=== PATIENT | female | born 1940 | race Caucasian/White ===

== ENCOUNTER 2021-04-19 08:14 | Emergency (ER) | payer MEDICARE, BC ==
[2021-04-19 08:33] VITALS: BP 187/75
[2021-04-19 09:06] LABS: BILIRUBIN,URINE NEGATIVE (NEGATIVE); GLUCOSE, URINE (UA) 100 mg/dL (NEGATIVE); KETONES,URINE (UA) NEGATIVE (NEGATIVE); LEUKOCYTE ESTERASE, URINE MODERATE (NEGATIVE); NITRITE,URINE NEGATIVE (NEGATIVE); OCCULT BLOOD,URINE TRACE-INTA (NEGATIVE); PROTEIN,URINE TRACE mg/dL (NEGATIVE); UROBILINOGEN,URINE 0.2 (NORMAL) E.U./dL (NORMAL)
[2021-04-19 09:07] LABS: CLARITY,URINE SL. CLOUDY (CLEAR)
[2021-04-19 09:23] LABS: BACTERIA,URINE Few /HPF (None Seen); RBC,URINE 0-5 /HPF (0-5); SQUAMOUS EPITHELIAL CELL,UR RARE Squamous (<= Few); WBC CLUMPS,URINE PRESENT; WBC,URINE >25 /HPF (0-5)
--- NOTE | 2021-04-19 09:41 | ED Physician Documentation ---
History of Present Illness - Stated complaint Stated Complaint: FEMALE - Chief complaint Chief Complaint: UTI - History obtained from History obtained from: Patient - Additonal information Additional information: 80-year-old woman with past medical history of chronic UTIs presents with foul- smelling urine and itching sensation when urinating over the past week, progressively worsening, refractory to her home remedies. Denies fever, back pain, nausea. Review of Systems Constitutional: denies: Fever GI: denies: Abdominal Pain, Nausea : reports: Dysuria, Frequency Musculoskeletal: denies: Back pain PD PAST MEDICAL HISTORY - Past Medical History Cardiovascular: Hypertension - Past Surgical History General: Cholecystectomy - Present Medications Home Medications: Ambulatory Orders Medication Instructions Recorded Confirmed Alendronate [Fosamax] 1 tab PO DAILY 04/19/21 04/19/21 Aspirin [[place] Aspirin] 1 tab PO DAILY 04/19/21 04/19/21 Cholecalciferol [Vitamin D3] 1 tab PO DAILY 04/19/21 04/19/21 Furosemide [Lasix] 1 tab PO PRN PRN 04/19/21 04/19/21 Levothyroxine [Synthroid] 1 tab PO DAILY 04/19/21 04/19/21 Liothyronine [Cytomel] 1 tab PO DAILY 04/19/21 04/19/21 Losartan Potassium [Cozaar] 1 tab PO DAILY 04/19/21 04/19/21 Nitrofurantoin [Macrobid] 1 tab PO DAILY 04/19/21 04/19/21 Nitrofurantoin [Macrobid] 100 mg PO BID #10 tab 04/19/21 SITagliptin [Januvia] 1 tab PO DAILY 04/19/21 04/19/21 hydroCHLOROthiazide 25 mg PO DAILY 04/19/21 04/19/21 [Hydrochlorothiazide] - Allergies Allergies/Adverse Reactions: Allergies Allergy/AdvReac Type Severity Reaction Status Date / Time ciprofloxacin Allergy Nausea Verified 04/19/21 08:42 clindamycin Allergy Unknown Verified 04/19/21 08:42 ibuprofen Allergy Unknown Verified 04/19/21 08:42 acetaminophen [From Vicodin] AdvReac Unknown Verified 04/19/21 08:42 amoxicillin [From Augmentin] AdvReac Unknown Verified 04/19/21 08:42 cephalexin AdvReac Hives Verified 04/19/21 08:42 clavulanic acid AdvReac Unknown Verified 04/19/21 08:42 [From Augmentin] codeine AdvReac Anaphylaxis Verified 04/19/21 08:42 fluconazole AdvReac Unknown Verified 04/19/21 08:42 hydrocodone [From Vicodin] AdvReac Unknown Verified 04/19/21 08:42 levofloxacin [From Levaquin] AdvReac Hives Verified 04/19/21 08:42 Sulfa (Sulfonamide AdvReac Anaphylaxis Verified 04/19/21 08:42 Antibiotics) tetracycline AdvReac Unknown Verified 04/19/21 08:42 trazodone AdvReac Unknown Verified 04/19/21 08:42 - Social History Does the pt smoke?: No Smoking Status: Never smoker Does the pt drink ETOH?: No Substance Use and Type: Marijuana, CBD oil / Products PD ED PE NORMAL - Vitals Vital signs reviewed: Yes - General General: Alert and oriented X 3, No acute distress, Well developed/nourished - HEENT HEENT: Atraumatic, PERRL, EOMI - Neck Neck: Supple, no meningeal sign - Abdomen Abdomen: Non tender, Non distended - Back Back: No CVA TTP - Derm Derm: Normal color - Extremities Extremities: No deformity - Neuro Neuro: Alert and oriented X 3 Results - Vitals Vitals: Vital Signs - 24 hr 04/19/21 08:24 Temperature 98.0 C H Heart Rate 57 L Respiratory 16 Rate Blood Pressure 187/75 H O2 Saturation 100 Oxygen O2 Source Room air - Labs Labs: Laboratory Tests 04/19/21 08:28 Urine Color YELLOW Urine Clarity SL. CLOUDY Urine pH 8.0 H Ur Specific [place] 1.015 Urine Protein TRACE Urine Glucose (UA) 100 H Urine Ketones NEGATIVE Urine Occult Blood TRACE-INTA Urine Nitrite NEGATIVE Urine Bilirubin NEGATIVE Urine Urobilinogen 0.2 (NORMAL) Ur Leukocyte Esterase MODERATE H Urine RBC 0-5 Urine WBC >25 H Urine WBC Clumps PRESENT Ur Squamous Epith Cells RARE Squamous Urine Bacteria Few Urine Culture Comments INDICATED PD MEDICAL DECISION MAKING - ED course ED course: 80-year-old woman presents with urinary tract infection. Prescription provided. Return precautions given. F/u PMD Departure - Departure Disposition: 01 Home, Self Care Clinical Impression: UTI (urinary tract infection) Condition: Good Instructions: ED UTI Cystitis Female Prescriptions: Nitrofurantoin [Macrobid] 100 mg PO BID #10 tab Comments: You were seen for a urinary tract infection. Take your antibiotics as prescribed. Return to the emergency department you have any new or worsening symptoms or other concerns. Follow-up with your primary doctor
== END 2021-04-19 10:08 | disposition home or self-care (01) ==
LOC: ED 08:14
DX: N39.0 Urinary tract infection, site not specified (principal); Z88.1 Allergy status to other antibiotic agents; Z88.2 Allergy status to sulfonamides; I10 Essential (primary) hypertension; Z79.82 Long term (current) use of aspirin
CPT/HCPCS: 81001; 87077; 87086; 87181; 99283

== ENCOUNTER 2023-04-08 13:41 | Emergency (ER) | payer MEDICARE, BC ==
--- NOTE | 2023-04-08 14:14 | ED Physician Documentation ---
History of Present Illness - Stated complaint Stated Complaint: DIZZY/VOMITING - Chief complaint Chief Complaint: Neuro - Additonal information Additional information: 82-year-old female presenting to the emergency department with dizziness, nausea, vomiting. Symptoms ongoing x5 days. Reports dizziness is a sensation of being unsteady on her feet. She reports a "gurgling" sensation in her ears.Denies hearing loss or tinnitus. Denies vertigo. Nausea vomiting with decreased p.o. intake. No chest or abdominal pain. Was seen by primary care but states she was not prescribed medications to help with her symptoms and no findings were noted. Review of Systems Constitutional: denies: Fever Eyes: denies: Loss of vision Ears: denies: Loss of hearing Nose: denies: Rhinorrhea / runny nose Throat: denies: Dental pain / toothache Cardiac: denies: Chest pain / pressure Respiratory: denies: Dyspnea GI: reports: Nausea, Vomiting : denies: Dysuria Skin: denies: Rash, Abrasion (s) Musculoskeletal: denies: Neck pain PD PAST MEDICAL HISTORY - Past Medical History Cardiovascular: Hypertension - Past Surgical History General: Cholecystectomy - Present Medications Home Medications: Ambulatory Orders Medication Instructions Recorded Confirmed Alendronate [Fosamax] 1 tab PO DAILY 04/19/21 04/19/21 Aspirin [[place] Aspirin] 1 tab PO DAILY 04/19/21 04/19/21 Cholecalciferol [Vitamin D3] 1 tab PO DAILY 04/19/21 04/19/21 Furosemide [Lasix] 1 tab PO PRN PRN 04/19/21 04/19/21 Levothyroxine [Synthroid] 1 tab PO DAILY 04/19/21 04/19/21 Liothyronine [Cytomel] 1 tab PO DAILY 04/19/21 04/19/21 Losartan Potassium [Cozaar] 1 tab PO DAILY 04/19/21 04/19/21 Nitrofurantoin [Macrobid] 1 tab PO DAILY 04/19/21 04/19/21 Nitrofurantoin [Macrobid] 100 mg PO BID #10 tab 04/19/21 SITagliptin [Januvia] 1 tab PO DAILY 04/19/21 04/19/21 hydroCHLOROthiazide 25 mg PO DAILY 04/19/21 04/19/21 [Hydrochlorothiazide] - Allergies Allergies/Adverse Reactions: Allergies Allergy/AdvReac Type Severity Reaction Status Date / Time ciprofloxacin Allergy Nausea Verified 04/19/21 08:42 clindamycin Allergy Unknown Verified 04/19/21 08:42 ibuprofen Allergy Unknown Verified 04/08/23 14:11 acetaminophen [From Vicodin] AdvReac Unknown Verified 04/08/23 14:11 amoxicillin [From Augmentin] AdvReac Unknown Verified 04/08/23 14:11 cephalexin AdvReac Hives Verified 04/08/23 14:11 clavulanic acid AdvReac Unknown Verified 04/08/23 14:11 [From Augmentin] codeine AdvReac Anaphylaxis Verified 04/08/23 14:11 fluconazole AdvReac Unknown Verified 04/08/23 14:11 hydrocodone [From Vicodin] AdvReac Unknown Verified 04/08/23 14:11 levofloxacin [From Levaquin] AdvReac Hives Verified 04/08/23 14:11 Sulfa (Sulfonamide AdvReac Anaphylaxis Verified 04/08/23 14:11 Antibiotics) tetracycline AdvReac Unknown Verified 04/19/21 08:42 trazodone AdvReac Unknown Verified 04/19/21 08:42 - Social History Does the pt smoke?: No Smoking Status: Never smoker Does the pt drink ETOH?: No PD ED PE NORMAL - General General: Alert and oriented X 3, No acute distress, Well developed/nourished, Other - HEENT HEENT: Atraumatic, PERRL, EOMI, Ears normal, Moist mucous membranes - Neck Neck: Supple, no meningeal sign, No bony TTP, No adenopathy, Thyroid normal - Cardiac Cardiac: RRR, No murmur - Respiratory Respiratory: No respiratory distress - Abdomen Abdomen: Normal bowel sounds - Female Female : Deferred - Rectal Rectal: Deferred - Back Back: No CVA TTP - Derm Derm: Normal color - Extremities Extremities: No deformity - Neuro Neuro: Alert and oriented X 3, sitecore developer 2-12 intact, No motor deficit, No sensory deficit, Normal speech Results - Vitals Vitals: Vital Signs - 24 hr 04/08/23 14:05 Temperature 36.7 C Heart Rate 75 Respiratory 19 Rate O2 Saturation 98 Oxygen O2 Source Room air PD Medical Decision Making - ED course ED course: Patient 82-year-old female who presented to the emergency department with report of 5 days of balance issues, nausea, vomiting, decreased appetite as well as "gurgling noises" behind her left ear. Afebrile, he medically stable and arr ival to the emergency department. No focal or lateralizing neurologic deficits. HEENT exam demonstrated what appeared to be some mild scarring but no fluid behind the tympanic membranes bilaterally, no tympanic membrane perforation, no cola stoma was appreciated on exam. Plan was initially made with patient for thorough evaluation here in the emergency department including EKG, blood work, urine analysis and CT scan however patient eloped from the emergency department almost immediately after my interview. She was noted to be able to ambulate easily and demonstrated decisional capacity. There is no indication at this time for a wellness check. Departure - Departure Disposition: 01 Home, Self Care Clinical Impression: Dizziness, Eloped from emergency department Nausea and vomiting Qualifiers: Vomiting type: unspecified Qualified Code(s): R11.2 - Nausea with vomiting, unspecified Comments: Thank you for allowing us the opportunity to care for you today would be general. You are deciding to leave the emergency department before the completion of her evaluation. Given that I cannot tell you for certain whether or not there is a dangerous or potentially life-threatening cause for your symptoms. I do recommend that you follow-up carefully with your primary care doctor. Please be aware that you are Always welcome to return to the emergency department and I strongly encourage you to do so for any new or worsening symptoms Discharge Date/Time: 04/08/23 14:40
[2023-04-08] MEDS ORDERED: SODIUM CHLORIDE 0.9% 500 ML IV STA (14:27)
--- OUTSIDE RECORDS SUMMARY | 2023-04-08 14:44 | EXTERNAL MEDICAL SUMMARY RPT | Continuity of Care Document ---
Author Name Unknown Address [address] [place] [address] Phone Organization [facility] Address [address] [place] [address] Phone Care Team Providers Care Test Lead Application Testing Name Role Phone Franklin Rizzo Unavailable Unavailable Medications date description facility 2023-02-04 00:00 [facility] Problems date description facility 2023-02-04 00:00 Type 2 diabetes, controlled, wi th neuropathy [facility] 2023-02-24 09:49 Type 2 diabetes mellitus withou t complications [facility] 2023-02-24 09:49 Essential (primary) [facility] 2023-02-24 09:49 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 [facility] 2023-02-24 09:49 Proteinuria, unspecified [facility] 2023-03-17 13:35 Type 2 diabetes mellitus withou t complications [facility] 2023-03-17 13:35 Essential (primary) [facility] 2023-03-17 13:35 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 [facility] 2023-03-17 13:35 Proteinuria, unspecified [facility] 2023-04-01 08:36 Essential (primary) [facility] Results/Labs test date author facility value unit interpretation Result panel 1 (unknown) (no date) (unknown) [facility] (no value) (units unknown) (unknown) Result panel 2 (unknown) (no date) (unknown) [facility] (no value) (units unknown) (unknown) Result panel 3 (unknown) (no date) (unknown) (unknown) 7.4 % 4548-4 (unknown) (no date) (unknown) (unknown) 7.4 % (unknown ) Result panel 4 (unknown) (no date) (unknown) (unknown) 5.3 mg/dl (unknown ) (unknown) (no date) (unknown) (unknown) 53.7 mg/dl (unknown ) (unknown) (no date) (unknown) (unknown) 98.6 ug/mg cr (unknow n) (unknown) (no date) (unknown) (unknown) 98.6 ug/mg cr (unknow n) Result panel 5 (unknown) (no date) (unknown) (unknown) 7.4 % (unknown ) (unknown) (no date) (unknown) (unknown) 7.4 % (unknown ) Result panel 6 (unknown) (no date) (unknown) (unknown) (no value) (units unknown) (unknown) (unknown) (no date) (unknown) (unknown) 02/04/23 (units unknown) (unknown) (unknown) (no date) (unknown) (unknown) 10:07) (units unknown) (unknown) (unknown) (no date) (unknown) (unknown) Age/Sex: 82 / F Date of Service: (units unknown) (unknown) (unknown) (no date) (unknown) (unknown) Allergies (units unknown) (unknown) (unknown) (no date) (unknown) (unknown) Allergy to mul tiple antibiotics (units unknown) (unknown) (unknown) (no date) (unknown) (unknown) [place] [address] (units unknown) (unknown) (unknown) (no date) (unknown) (unknown) Anesthesia (units unknown) (unknown) (unknown) (no date) (unknown) (unknown) Attending Dr: Franklin MOSLEY (units unknown) (unknown) (unknown) (no date) (unknown) (unknown) CODEINE Allerg y (Severe, Uncoded 12/30/22 10:07) (units unknown) (unknown) (unknown) (no date) (unknown) (unknown) Carpal tunnel syndrome (-1976) (units unknown) (unknown) (unknown) (no date) (unknown) (unknown) Chicken pox (-1949) (units unknown) (unknown) (unknown) (no date) (unknown) (unknown) Coronary arter y disease (units unknown) (unknown) (unknown) (no date) (unknown) (unknown) : 0 Acct:[id number] (units unknown) (unknown) (unknown) (no date) (unknown) (unknown) Dept at . (units unknown) (unknown) (unknown) (no date) (unknown) (unknown) Diabetic neuropathy (units unknown) (unknown) (unknown) (no date) (unknown) (unknown) Documented By: Franklin Rizzo 02/04/23 1150 (units unknown) (unknown) (unknown) (no date) (unknown) (unknown) Draft (units unknown) (unknown) (unknown) (no date) (unknown) (unknown) Dupuytren's contracture (units unknown) (unknown) (unknown) (no date) (unknown) (unknown) Dyslipidemia (units unknown) (unknown) (unknown) (no date) (unknown) (unknown) Essential hypertension (units unknown) (unknown) (unknown) (no date) (unknown) (unknown) FLUCONAZOLE Al lergy (Severe, Uncoded 12/30/22 10:07) (units unknown) (unknown) (unknown) (no date) (unknown) (unknown) Family History (units unknown) (unknown) (unknown) (no date) (unknown) (unknown) Family Practic e Office Visit (units unknown) (unknown) (unknown) (no date) (unknown) (unknown) Father Murder (units unknown) (unknown) (unknown) (no date) (unknown) (unknown) [facility] (units unknown) (unknown) (unknown) (no date) (unknown) (unknown) Foot pain (units unknown) (unknown) (unknown) (no date) (unknown) (unknown) Fractures (units unknown) (unknown) (unknown) (no date) (unknown) (unknown) From CIPRO All ergy (Severe, Uncoded 12/30/22 10:07) (units unknown) (unknown) (unknown) (no date) (unknown) (unknown) HYDROCODONE Al lergy (Severe, Uncoded 12/30/22 10:07) (units unknown) (unknown) (unknown) (no date) (unknown) (unknown) History of abdominoplasty (units unknown) (unknown) (unknown) (no date) (unknown) (unknown) History of casandra k surgery (-2018) (units unknown) (unknown) (unknown) (no date) (unknown) (unknown) History of car pal tunnel release (units unknown) (unknown) (unknown) (no date) (unknown) (unknown) History of tob acco use (units unknown) (unknown) (unknown) (no date) (unknown) (unknown) Hives (units unknown) (unknown) (unknown) (no date) (unknown) (unknown) Hypothyroidism (-1998) (units unknown) (unknown) (unknown) (no date) (unknown) (unknown) Intake perform ed by: Quiana Camarillo (units unknown) (unknown) (unknown) (no date) (unknown) (unknown) Intake (units unknown) (unknown) (unknown) (no date) (unknown) (unknown) Intake- [facility] [facility] Staff (units unknown) (unknown) (unknown) (no date) (unknown) (unknown) Last Menstural Cycle + Details (units unknown) (unknown) (unknown) (no date) (unknown) (unknown) Loc: [facility] (units unknown) (unknown) (unknown) (no date) (unknown) (unknown) Measles (-1955) (uni ts unknown) (unknown) (unknown) (no date) (unknown) (unknown) Medical Histor y (units unknown) (unknown) (unknown) (no date) (unknown) (unknown) Mother d Brain tumor (units unknown) (unknown) (unknown) (no date) (unknown) (unknown) NITROFURANTOIN Allergy (Severe, Uncoded 12/30/22 10:07) (units unknown) (unknown) (unknown) (no date) (unknown) (unknown) Osteoporosis (units unknown) (unknown) (unknown) (no date) (unknown) (unknown) Other Menstrua l Period: Postmenopausal (units unknown) (unknown) (unknown) (no date) (unknown) (unknown) PFSH (units unknown) (unknown) (unknown) (no date) (unknown) (unknown) POLLEN Allergy (Unknown, Uncoded 12/30/22 10:07) (units unknown) (unknown) (unknown) (no date) (unknown) (unknown) Parkinson's disease (units unknown) (unknown) (unknown) (no date) (unknown) (unknown) Patient: Quiana Santiago (units unknown) (unknown) (unknown) (no date) (unknown) (unknown) Polio (-1943) (units unknown) (unknown) (unknown) (no date) (unknown) (unknown) R#: [id number] (unit s unknown) (unknown) (unknown) (no date) (unknown) (unknown) RASH (units unknown) (unknown) (unknown) (no date) (unknown) (unknown) Reason For Visit (un its unknown) (unknown) (unknown) (no date) (unknown) (unknown) Rectal bleeding (uni ts unknown) (unknown) (unknown) (no date) (unknown) (unknown) Recurrent UTI (units unknown) (unknown) (unknown) (no date) (unknown) (unknown) Reflux, vesicoureteral (units unknown) (unknown) (unknown) (no date) (unknown) (unknown) STOMACH CRAMPS , 'I CHOKE UP' (units unknown) (unknown) (unknown) (no date) (unknown) (unknown) STOMACH CRAMPS , 'I CRAMP UP' (units unknown) (unknown) (unknown) (no date) (unknown) (unknown) STOMACH CRAMPS, RASH (units unknown) (unknown) (unknown) (no date) (unknown) (unknown) SULFA Allergy (Severe, Uncoded 12/30/22 10:07) (units unknown) (unknown) (unknown) (no date) (unknown) (unknown) Signed By: (units unknown) (unknown) (unknown) (no date) (unknown) (unknown) Sister d Substance abuse (units unknown) (unknown) (unknown) (no date) (unknown) (unknown) Smoking Status : Former smoker (units unknown) (unknown) (unknown) (no date) (unknown) (unknown) Surgical Histo ry (units unknown) (unknown) (unknown) (no date) (unknown) (unknown) THROAT SWELLIN G, HIVES, 'I CAN'T BREATHE' (units unknown) (unknown) (unknown) (no date) (unknown) (unknown) This note may have been all or partially generated using voice recognition (units unknown) (unknown) (unknown) (no date) (unknown) (unknown) Tobacco + Subs tance Use (units unknown) (unknown) (unknown) (no date) (unknown) (unknown) Tobacco Status (unit s unknown) (unknown) (unknown) (no date) (unknown) (unknown) Type 2 diabete s mellitus without complication (-1969) (units unknown) (unknown) (unknown) (no date) (unknown) (unknown) Unknown (units unknown) (unknown) (unknown) (no date) (unknown) (unknown) Urge incontinence (u nits unknown) (unknown) (unknown) (no date) (unknown) (unknown) Vaginal itching (uni ts unknown) (unknown) (unknown) (no date) (unknown) (unknown) Visit Reasons: f/u Diabetic check review medication (units unknown) (unknown) (unknown) (no date) (unknown) (unknown) amoxicillin [F rom Augmentin] Adverse Reaction (Unknown, Verified 12/30/22 10:07) (units unknown) (unknown) (unknown) (no date) (unknown) (unknown) cephalexin Adv erse Reaction (Unknown, Verified 12/30/22 10:07) (units unknown) (unknown) (unknown) (no date) (unknown) (unknown) clavulanic aci d [From Augmentin] Adverse Reaction (Unknown, Verified 12/30/22 (units unknown) (unknown) (unknown) (no date) (unknown) (unknown) clindamycin Ad verse Reaction (Unknown, Verified 12/30/22 10:07) (units unknown) (unknown) (unknown) (no date) (unknown) (unknown) have occurred. If there are any questions, please contact the Medical Records (units unknown) (unknown) (unknown) (no date) (unknown) (unknown) ibuprofen Adve rse Reaction (Intermediate, Verified 12/30/22 10:07) (units unknown) (unknown) (unknown) (no date) (unknown) (unknown) levofloxacin [ From Levaquin] Allergy (Intermediate, Verified 12/30/22 10:07) (units unknown) (unknown) (unknown) (no date) (unknown) (unknown) may occur. Occasional wrong-word or 'sound-alike' substitutions may have (units unknown) (unknown) (unknown) (no date) (unknown) (unknown) occurred due t o the inherent limitations of voice recognition software. Please (units unknown) (unknown) (unknown) (no date) (unknown) (unknown) read the note carefully and recognize, using context, where these substitutions (units unknown) (unknown) (unknown) (no date) (unknown) (unknown) software. Alth ough every effort is made to edit content, concrete tester errors (units unknown) (unknown) (unknown) (no date) (unknown) (unknown) tetracycline A dverse Reaction (Unknown, Verified 12/30/22 10:07) (units unknown) (unknown) Result panel 7 (unknown) (no date) (unknown) (unknown) (no value) (units unknown) (unknown) (unknown) (no date) (unknown) (unknown) 02/04/23 (units unknown) (unknown) (unknown) (no date) (unknown) (unknown) 02/04/23] (units unknown) (unknown) (unknown) (no date) (unknown) (unknown) 08/09/21 [Hist ory Confirmed 02/04/23] (units unknown) (unknown) (unknown) (no date) (unknown) (unknown) 11:52) (units unknown) (unknown) (unknown) (no date) (unknown) (unknown) 12:00 (units unknown) (unknown) (unknown) (no date) (unknown) (unknown) 82 Y/O Female presents today for a Diabetes follow up (units unknown) (unknown) (unknown) (no date) (unknown) (unknown) Age/Sex: 82 / F Date of Service: (units unknown) (unknown) (unknown) (no date) (unknown) (unknown) Allergies (units unknown) (unknown) (unknown) (no date) (unknown) (unknown) Allergy to mul tiple antibiotics (units unknown) (unknown) (unknown) (no date) (unknown) (unknown) [place] [address] (units unknown) (unknown) (unknown) (no date) (unknown) (unknown) Anesthesia (units unknown) (unknown) (unknown) (no date) (unknown) (unknown) Attending Dr: Franklin MOSLEY (units unknown) (unknown) (unknown) (no date) (unknown) (unknown) BP 140/70 (units unknown) (unknown) (unknown) (no date) (unknown) (unknown) Blood Pressure Location Lt brachial (units unknown) (unknown) (unknown) (no date) (unknown) (unknown) CODEINE Allerg y (Severe, Uncoded 02/04/23 11:52) (units unknown) (unknown) (unknown) (no date) (unknown) (unknown) Carpal tunnel syndrome (-1976) (units unknown) (unknown) (unknown) (no date) (unknown) (unknown) Chicken pox (-1949) (units unknown) (unknown) (unknown) (no date) (unknown) (unknown) Confirmed 02/04/23] (units unknown) (unknown) (unknown) (no date) (unknown) (unknown) Coronary arter y disease (units unknown) (unknown) (unknown) (no date) (unknown) (unknown) DAILY #90 tabs 01/20/22 [Rx Confirmed 02/04/23] (units unknown) (unknown) (unknown) (no date) (unknown) (unknown) : 0 Acct:[id number] (units unknown) (unknown) (unknown) (no date) (unknown) (unknown) Dept at . (units unknown) (unknown) (unknown) (no date) (unknown) (unknown) Diabetic neuropathy (units unknown) (unknown) (unknown) (no date) (unknown) (unknown) Documented By: Franklin Rizzo 02/04/23 1150 (units unknown) (unknown) (unknown) (no date) (unknown) (unknown) Draft (units unknown) (unknown) (unknown) (no date) (unknown) (unknown) Dupuytren's contracture (units unknown) (unknown) (unknown) (no date) (unknown) (unknown) Dyslipidemia (units unknown) (unknown) (unknown) (no date) (unknown) (unknown) Essential hypertension (units unknown) (unknown) (unknown) (no date) (unknown) (unknown) FLUCONAZOLE Al lergy (Severe, Uncoded 02/04/23 11:52) (units unknown) (unknown) (unknown) (no date) (unknown) (unknown) Family History (units unknown) (unknown) (unknown) (no date) (unknown) (unknown) Family Practic e Office Visit (units unknown) (unknown) (unknown) (no date) (unknown) (unknown) Father Murder (units unknown) (unknown) (unknown) (no date) (unknown) (unknown) [facility] (units unknown) (unknown) (unknown) (no date) (unknown) (unknown) Foot pain (units unknown) (unknown) (unknown) (no date) (unknown) (unknown) Fractures (units unknown) (unknown) (unknown) (no date) (unknown) (unknown) From CIPRO All ergy (Severe, Uncoded 02/04/23 11:52) (units unknown) (unknown) (unknown) (no date) (unknown) (unknown) HYDROCODONE Al lergy (Severe, Uncoded 02/04/23 11:52) (units unknown) (unknown) (unknown) (no date) (unknown) (unknown) Height 4 ft 11 in (u nits unknown) (unknown) (unknown) (no date) (unknown) (unknown) History of abdominoplasty (units unknown) (unknown) (unknown) (no date) (unknown) (unknown) History of casandra k surgery (-2018) (units unknown) (unknown) (unknown) (no date) (unknown) (unknown) History of car pal tunnel release (units unknown) (unknown) (unknown) (no date) (unknown) (unknown) History of tob acco use (units unknown) (unknown) (unknown) (no date) (unknown) (unknown) Hives (units unknown) (unknown) (unknown) (no date) (unknown) (unknown) Hypothyroidism (-1998) (units unknown) (unknown) (unknown) (no date) (unknown) (unknown) Intake Note: (units unknown) (unknown) (unknown) (no date) (unknown) (unknown) Intake perform ed by: Quiana Camarillo (units unknown) (unknown) (unknown) (no date) (unknown) (unknown) Intake (units unknown) (unknown) (unknown) (no date) (unknown) (unknown) Intake- [place] [facility] Staff (units unknown) (unknown) (unknown) (no date) (unknown) (unknown) Last Menstural Cycle + Details (units unknown) (unknown) (unknown) (no date) (unknown) (unknown) Loc: [facility] (units unknown) (unknown) (unknown) (no date) (unknown) (unknown) Measles (-1955) (uni ts unknown) (unknown) (unknown) (no date) (unknown) (unknown) Medical Histor y (units unknown) (unknown) (unknown) (no date) (unknown) (unknown) Medications (units unknown) (unknown) (unknown) (no date) (unknown) (unknown) Mother d Brain tumor (units unknown) (unknown) (unknown) (no date) (unknown) (unknown) NITROFURANTOIN Allergy (Severe, Uncoded 02/04/23 11:52) (units unknown) (unknown) (unknown) (no date) (unknown) (unknown) Osteoporosis (units unknown) (unknown) (unknown) (no date) (unknown) (unknown) Other Menstrua l Period: Postmenopausal (units unknown) (unknown) (unknown) (no date) (unknown) (unknown) Oxygen Deliver y Method room air (units unknown) (unknown) (unknown) (no date) (unknown) (unknown) PFSH (units unknown) (unknown) (unknown) (no date) (unknown) (unknown) POLLEN Allergy (Unknown, Uncoded 02/04/23 11:52) (units unknown) (unknown) (unknown) (no date) (unknown) (unknown) Parkinson's disease (units unknown) (unknown) (unknown) (no date) (unknown) (unknown) Patient: [place] Quiana Valadez (units unknown) (unknown) (unknown) (no date) (unknown) (unknown) Polio (-1943) (units unknown) (unknown) (unknown) (no date) (unknown) (unknown) Position Sitting (un its unknown) (unknown) (unknown) (no date) (unknown) (unknown) Pulse 56 L (units unknown) (unknown) (unknown) (no date) (unknown) (unknown) Pulse Oximetry (%) 97 (units unknown) (unknown) (unknown) (no date) (unknown) (unknown) Pulse Source Monitor (units unknown) (unknown) (unknown) (no date) (unknown) (unknown) R#: [id number] (unit s unknown) (unknown) (unknown) (no date) (unknown) (unknown) RASH (units unknown) (unknown) (unknown) (no date) (unknown) (unknown) Reason For Visit (un its unknown) (unknown) (unknown) (no date) (unknown) (unknown) Rectal bleeding (uni ts unknown) (unknown) (unknown) (no date) (unknown) (unknown) Recurrent UTI (units unknown) (unknown) (unknown) (no date) (unknown) (unknown) Reflux, vesicoureteral (units unknown) (unknown) (unknown) (no date) (unknown) (unknown) STOMACH CRAMPS , 'I CHOKE UP' (units unknown) (unknown) (unknown) (no date) (unknown) (unknown) STOMACH CRAMPS , 'I CRAMP UP' (units unknown) (unknown) (unknown) (no date) (unknown) (unknown) STOMACH CRAMPS, RASH (units unknown) (unknown) (unknown) (no date) (unknown) (unknown) SULFA Allergy (Severe, Uncoded 02/04/23 11:52) (units unknown) (unknown) (unknown) (no date) (unknown) (unknown) Signed By: (units unknown) (unknown) (unknown) (no date) (unknown) (unknown) Sister d Substance abuse (units unknown) (unknown) (unknown) (no date) (unknown) (unknown) Smoking Status : Former smoker (units unknown) (unknown) (unknown) (no date) (unknown) (unknown) Surgical Histo ry (units unknown) (unknown) (unknown) (no date) (unknown) (unknown) THROAT SWELLIN G, HIVES, 'I CAN'T BREATHE' (units unknown) (unknown) (unknown) (no date) (unknown) (unknown) This note may have been all or partially generated using voice recognition (units unknown) (unknown) (unknown) (no date) (unknown) (unknown) Tobacco + Subs tance Use (units unknown) (unknown) (unknown) (no date) (unknown) (unknown) Tobacco Status (unit s unknown) (unknown) (unknown) (no date) (unknown) (unknown) Type 2 diabete s mellitus without complication (-1970) (units unknown) (unknown) (unknown) (no date) (unknown) (unknown) Unknown (units unknown) (unknown) (unknown) (no date) (unknown) (unknown) Urge incontinence (u nits unknown) (unknown) (unknown) (no date) (unknown) (unknown) Vaginal itching (uni ts unknown) (unknown) (unknown) (no date) (unknown) (unknown) Visit Reasons: f/u Diabetic check review medication (units unknown) (unknown) (unknown) (no date) (unknown) (unknown) Vitals (units unknown) (unknown) (unknown) (no date) (unknown) (unknown) [Rx Confirmed 02/04/23] (units unknown) (unknown) (unknown) (no date) (unknown) (unknown) alendronate 70 mg tablet 70 mg PO QWEEK #12 tabs 07/22/22 [Rx Confirmed (units unknown) (unknown) (unknown) (no date) (unknown) (unknown) amoxicillin [F rom Augmentin] Adverse Reaction (Unknown, Verified 02/04/23 11:52) (units unknown) (unknown) (unknown) (no date) (unknown) (unknown) aspirin 81 mg tablet,delayed release (Adult Aspirin Regimen) 81 mg PO DAILY (units unknown) (unknown) (unknown) (no date) (unknown) (unknown) atorvastatin 4 0 mg tablet 40 mg PO BEDTIME #90 tabs 12/20/22 [Rx Confirmed (units unknown) (unknown) (unknown) (no date) (unknown) (unknown) cephalexin Adv erse Reaction (Unknown, Verified 02/04/23 11:52) (units unknown) (unknown) (unknown) (no date) (unknown) (unknown) clavulanic aci d [From Augmentin] Adverse Reaction (Unknown, Verified 02/04/23 (units unknown) (unknown) (unknown) (no date) (unknown) (unknown) clindamycin Ad verse Reaction (Unknown, Verified 02/04/23 11:52) (units unknown) (unknown) (unknown) (no date) (unknown) (unknown) clotrimazole 1 % topical cream 1 applic topical 02/04/23 [History Confirmed (units unknown) (unknown) (unknown) (no date) (unknown) (unknown) furosemide 20 mg tablet (Lasix) 20 mg PO BID PRN edema #180 tabs 12/20/22 [Rx (units unknown) (unknown) (unknown) (no date) (unknown) (unknown) have occurred. If there are any questions, please contact the Medical Records (units unknown) (unknown) (unknown) (no date) (unknown) (unknown) ibuprofen Adve rse Reaction (Intermediate, Verified 02/04/23 11:52) (units unknown) (unknown) (unknown) (no date) (unknown) (unknown) levofloxacin [ From Levaquin] Allergy (Intermediate, Verified 02/04/23 11:52) (units unknown) (unknown) (unknown) (no date) (unknown) (unknown) levothyroxine 137 mcg tablet 137 mcg PO DAILY #90 tabs 12/20/22 [Rx Confirmed (units unknown) (unknown) (unknown) (no date) (unknown) (unknown) liothyronine 5 mcg tablet (Cytomel) 10 mcg PO DAILY #180 tabs 12/20/22 [Rx (units unknown) (unknown) (unknown) (no date) (unknown) (unknown) losartan 100 m g tablet 100 mg PO DAILY #90 tabs 12/20/22 [Rx Confirmed 02/04/23] (units unknown) (unknown) (unknown) (no date) (unknown) (unknown) may occur. Occasional wrong-word or 'sound-alike' substitutions may have (units unknown) (unknown) (unknown) (no date) (unknown) (unknown) metformin 1,00 0 mg tablet 1,000 mg PO BID #180 tabs 09/01/22 [Rx Confirmed (units unknown) (unknown) (unknown) (no date) (unknown) (unknown) metoprolol suc cinate 50 mg tablet,extended release 24 hr (Toprol XL) 50 mg PO (units unknown) (unknown) (unknown) (no date) (unknown) (unknown) nifedipine 30 mg tablet,extended release 24 hr 30 mg PO DAILY #90 tabs 12/16/22 (units unknown) (unknown) (unknown) (no date) (unknown) (unknown) occurred due t o the inherent limitations of voice recognition software. Please (units unknown) (unknown) (unknown) (no date) (unknown) (unknown) read the note carefully and recognize, using context, where these substitutions (units unknown) (unknown) (unknown) (no date) (unknown) (unknown) sitagliptin phosphate 100 mg tablet 100 mg PO DAILY #90 tabs 12/20/22 [Rx (units unknown) (unknown) (unknown) (no date) (unknown) (unknown) software. Alth ough every effort is made to edit content, concrete tester errors (units unknown) (unknown) (unknown) (no date) (unknown) (unknown) tetracycline A dverse Reaction (Unknown, Verified 02/04/23 11:52) (units unknown) (unknown) Result panel 8 (unknown) (no date) (unknown) (unknown) (no value) (units unknown) (unknown) (unknown) (no date) (unknown) (unknown) 02/04/23 (units unknown) (unknown) (unknown) (no date) (unknown) (unknown) 02/04/23] (units unknown) (unknown) (unknown) (no date) (unknown) (unknown) 08/09/21 [Hist ory Confirmed 02/04/23] (units unknown) (unknown) (unknown) (no date) (unknown) (unknown) 11:52) (units unknown) (unknown) (unknown) (no date) (unknown) (unknown) 12:00 (units unknown) (unknown) (unknown) (no date) (unknown) (unknown) 82 Y/O Female presents today for a Diabetes follow up. Her last A1C was tested (units unknown) (unknown) (unknown) (no date) (unknown) (unknown) Age/Sex: 82 / F Date of Service: (units unknown) (unknown) (unknown) (no date) (unknown) (unknown) Allergies (units unknown) (unknown) (unknown) (no date) (unknown) (unknown) Allergy to mul tiple antibiotics (units unknown) (unknown) (unknown) (no date) (unknown) (unknown) [place] [id number] (units unknown) (unknown) (unknown) (no date) (unknown) (unknown) Anesthesia (units unknown) (unknown) (unknown) (no date) (unknown) (unknown) Attending Dr: Franklin MOSLEY (units unknown) (unknown) (unknown) (no date) (unknown) (unknown) BP 140/70 (units unknown) (unknown) (unknown) (no date) (unknown) (unknown) Blood Pressure Location Lt brachial (units unknown) (unknown) (unknown) (no date) (unknown) (unknown) CODEINE Allerg y (Severe, Uncoded 02/04/23 11:52) (units unknown) (unknown) (unknown) (no date) (unknown) (unknown) Carpal tunnel syndrome (-1976) (units unknown) (unknown) (unknown) (no date) (unknown) (unknown) Chicken pox (-1949) (units unknown) (unknown) (unknown) (no date) (unknown) (unknown) Confirmed 02/04/23] (units unknown) (unknown) (unknown) (no date) (unknown) (unknown) Coronary arter y disease (units unknown) (unknown) (unknown) (no date) (unknown) (unknown) DAILY #90 tabs 01/20/22 [Rx Confirmed 02/04/23] (units unknown) (unknown) (unknown) (no date) (unknown) (unknown) : 0 Acct:[id number] (units unknown) (unknown) (unknown) (no date) (unknown) (unknown) Dept at . (units unknown) (unknown) (unknown) (no date) (unknown) (unknown) Diabetic neuropathy (units unknown) (unknown) (unknown) (no date) (unknown) (unknown) Documented By: Franklin Rizzo 02/04/23 1150 (units unknown) (unknown) (unknown) (no date) (unknown) (unknown) Draft (units unknown) (unknown) (unknown) (no date) (unknown) (unknown) Dupuytren's contracture (units unknown) (unknown) (unknown) (no date) (unknown) (unknown) Dyslipidemia (units unknown) (unknown) (unknown) (no date) (unknown) (unknown) Essential hypertension (units unknown) (unknown) (unknown) (no date) (unknown) (unknown) FLUCONAZOLE Al jasbirgy (Severe, Uncoded 02/04/23 11:52) (units unknown) (unknown) (unknown) (no date) (unknown) (unknown) Family History (units unknown) (unknown) (unknown) (no date) (unknown) (unknown) Family Practic e Office Visit (units unknown) (unknown) (unknown) (no date) (unknown) (unknown) Father Murder (units unknown) (unknown) (unknown) (no date) (unknown) (unknown) [facility] (units unknown) (unknown) (unknown) (no date) (unknown) (unknown) Foot pain (units unknown) (unknown) (unknown) (no date) (unknown) (unknown) Fractures (units unknown) (unknown) (unknown) (no date) (unknown) (unknown) From [facility] All ergy (Severe, Uncoded 02/04/23 11:52) (units unknown) (unknown) (unknown) (no date) (unknown) (unknown) HYDROCODONE Al lergy (Severe, Uncoded 02/04/23 11:52) (units unknown) (unknown) (unknown) (no date) (unknown) (unknown) Height 4 ft 11 in (u nits unknown) (unknown) (unknown) (no date) (unknown) (unknown) History of abdominoplasty (units unknown) (unknown) (unknown) (no date) (unknown) (unknown) History of casandra k surgery (-2018) (units unknown) (unknown) (unknown) (no date) (unknown) (unknown) History of car pal tunnel release (units unknown) (unknown) (unknown) (no date) (unknown) (unknown) History of tob acco use (units unknown) (unknown) (unknown) (no date) (unknown) (unknown) Hives (units unknown) (unknown) (unknown) (no date) (unknown) (unknown) Hypothyroidism (-1998) (units unknown) (unknown) (unknown) (no date) (unknown) (unknown) Intake Note: (units unknown) (unknown) (unknown) (no date) (unknown) (unknown) Intake perform ed by: Quiana Camarillo (units unknown) (unknown) (unknown) (no date) (unknown) (unknown) Intake (units unknown) (unknown) (unknown) (no date) (unknown) (unknown) Intake- [place] al Staff (units unknown) (unknown) (unknown) (no date) (unknown) (unknown) Last Menstural Cycle + Details (units unknown) (unknown) (unknown) (no date) (unknown) (unknown) Loc: [facility] (units unknown) (unknown) (unknown) (no date) (unknown) (unknown) Measles (-1955) (uni ts unknown) (unknown) (unknown) (no date) (unknown) (unknown) Medical Histor y (units unknown) (unknown) (unknown) (no date) (unknown) (unknown) Medications (units unknown) (unknown) (unknown) (no date) (unknown) (unknown) Mother d Brain tumor (units unknown) (unknown) (unknown) (no date) (unknown) (unknown) NITROFURANTOIN Allergy (Severe, Uncoded 02/04/23 11:52) (units unknown) (unknown) (unknown) (no date) (unknown) (unknown) Osteoporosis (units unknown) (unknown) (unknown) (no date) (unknown) (unknown) Other Menstrua l Period: Postmenopausal (units unknown) (unknown) (unknown) (no date) (unknown) (unknown) Oxygen Deliver y Method room air (units unknown) (unknown) (unknown) (no date) (unknown) (unknown) PFSH (units unknown) (unknown) (unknown) (no date) (unknown) (unknown) POLLEN Allergy (Unknown, Uncoded 02/04/23 11:52) (units unknown) (unknown) (unknown) (no date) (unknown) (unknown) Parkinson's disease (units unknown) (unknown) (unknown) (no date) (unknown) (unknown) Patient: Quiana Santiago (units unknown) (unknown) (unknown) (no date) (unknown) (unknown) Polio (-1943) (units unknown) (unknown) (unknown) (no date) (unknown) (unknown) Position Sitting (un its unknown) (unknown) (unknown) (no date) (unknown) (unknown) Pulse 56 L (units unknown) (unknown) (unknown) (no date) (unknown) (unknown) Pulse Oximetry (%) 97 (units unknown) (unknown) (unknown) (no date) (unknown) (unknown) Pulse Source Monitor (units unknown) (unknown) (unknown) (no date) (unknown) (unknown) R#: [id number] (unit s unknown) (unknown) (unknown) (no date) (unknown) (unknown) RASH (units unknown) (unknown) (unknown) (no date) (unknown) (unknown) Reason For Visit (un its unknown) (unknown) (unknown) (no date) (unknown) (unknown) Rectal bleeding (uni ts unknown) (unknown) (unknown) (no date) (unknown) (unknown) Recurrent UTI (units unknown) (unknown) (unknown) (no date) (unknown) (unknown) Reflux, vesicoureteral (units unknown) (unknown) (unknown) (no date) (unknown) (unknown) STOMACH CRAMPS , 'I CHOKE UP' (units unknown) (unknown) (unknown) (no date) (unknown) (unknown) STOMACH CRAMPS , 'I CRAMP UP' (units unknown) (unknown) (unknown) (no date) (unknown) (unknown) STOMACH CRAMPS, RASH (units unknown) (unknown) (unknown) (no date) (unknown) (unknown) SULFA Allergy (Severe, Uncoded 02/04/23 11:52) (units unknown) (unknown) (unknown) (no date) (unknown) (unknown) Signed By: (units unknown) (unknown) (unknown) (no date) (unknown) (unknown) Sister d Substance abuse (units unknown) (unknown) (unknown) (no date) (unknown) (unknown) Smoking Status : Former smoker (units unknown) (unknown) (unknown) (no date) (unknown) (unknown) Surgical Histo ry (units unknown) (unknown) (unknown) (no date) (unknown) (unknown) THROAT SWELLIN G, HIVES, 'I CAN'T BREATHE' (units unknown) (unknown) (unknown) (no date) (unknown) (unknown) This note may have been all or partially generated using voice recognition (units unknown) (unknown) (unknown) (no date) (unknown) (unknown) Tobacco + Subs tance Use (units unknown) (unknown) (unknown) (no date) (unknown) (unknown) Tobacco Status (unit s unknown) (unknown) (unknown) (no date) (unknown) (unknown) Type 2 diabete s mellitus without complication (-1970) (units unknown) (unknown) (unknown) (no date) (unknown) (unknown) Unknown (units unknown) (unknown) (unknown) (no date) (unknown) (unknown) Urge incontinence (u nits unknown) (unknown) (unknown) (no date) (unknown) (unknown) Vaginal itching (uni ts unknown) (unknown) (unknown) (no date) (unknown) (unknown) Visit Reasons: f/u Diabetic check review medication (units unknown) (unknown) (unknown) (no date) (unknown) (unknown) Vitals (units unknown) (unknown) (unknown) (no date) (unknown) (unknown) [Rx Confirmed 02/04/23] (units unknown) (unknown) (unknown) (no date) (unknown) (unknown) alendronate 70 mg tablet 70 mg PO QWEEK #12 tabs 07/22/22 [Rx Confirmed (units unknown) (unknown) (unknown) (no date) (unknown) (unknown) amoxicillin [F rom Augmentin] Adverse Reaction (Unknown, Verified 02/04/23 11:52) (units unknown) (unknown) (unknown) (no date) (unknown) (unknown) aspirin 81 mg tablet,delayed release (Adult Aspirin Regimen) 81 mg PO DAILY (units unknown) (unknown) (unknown) (no date) (unknown) (unknown) atorvastatin 4 0 mg tablet 40 mg PO BEDTIME #90 tabs 12/20/22 [Rx Confirmed (units unknown) (unknown) (unknown) (no date) (unknown) (unknown) cephalexin Adv erse Reaction (Unknown, Verified 02/04/23 11:52) (units unknown) (unknown) (unknown) (no date) (unknown) (unknown) clavulanic aci d [From Augmentin] Adverse Reaction (Unknown, Verified 02/04/23 (units unknown) (unknown) (unknown) (no date) (unknown) (unknown) clindamycin Ad verse Reaction (Unknown, Verified 02/04/23 11:52) (units unknown) (unknown) (unknown) (no date) (unknown) (unknown) clotrimazole 1 % topical cream 1 applic topical 02/04/23 [History Confirmed (units unknown) (unknown) (unknown) (no date) (unknown) (unknown) furosemide 20 mg tablet (Lasix) 20 mg PO BID PRN edema #180 tabs 12/20/22 [Rx (units unknown) (unknown) (unknown) (no date) (unknown) (unknown) have occurred. If there are any questions, please contact the Medical Records (units unknown) (unknown) (unknown) (no date) (unknown) (unknown) ibuprofen Adve rse Reaction (Intermediate, Verified 02/04/23 11:52) (units unknown) (unknown) (unknown) (no date) (unknown) (unknown) levofloxacin [ From Levaquin] Allergy (Intermediate, Verified 02/04/23 11:52) (units unknown) (unknown) (unknown) (no date) (unknown) (unknown) levothyroxine 137 mcg tablet 137 mcg PO DAILY #90 tabs 12/20/22 [Rx Confirmed (units unknown) (unknown) (unknown) (no date) (unknown) (unknown) liothyronine 5 mcg tablet (Cytomel) 10 mcg PO DAILY #180 tabs 12/20/22 [Rx (units unknown) (unknown) (unknown) (no date) (unknown) (unknown) losartan 100 m g tablet 100 mg PO DAILY #90 tabs 12/20/22 [Rx Confirmed 02/04/23] (units unknown) (unknown) (unknown) (no date) (unknown) (unknown) may occur. Occasional wrong-word or 'sound-alike' substitutions may have (units unknown) (unknown) (unknown) (no date) (unknown) (unknown) metformin 1,00 0 mg tablet 1,000 mg PO BID #180 tabs 09/01/22 [Rx Confirmed (units unknown) (unknown) (unknown) (no date) (unknown) (unknown) metoprolol suc cinate 50 mg tablet,extended release 24 hr (Toprol XL) 50 mg PO (units unknown) (unknown) (unknown) (no date) (unknown) (unknown) nifedipine 30 mg tablet,extended release 24 hr 30 mg PO DAILY #90 tabs 12/16/22 (units unknown) (unknown) (unknown) (no date) (unknown) (unknown) occurred due t o the inherent limitations of voice recognition software. Please (units unknown) (unknown) (unknown) (no date) (unknown) (unknown) on 02-03-23 and was 7.4. (units unknown) (unknown) (unknown) (no date) (unknown) (unknown) read the note carefully and recognize, using context, where these substitutions (units unknown) (unknown) (unknown) (no date) (unknown) (unknown) sitagliptin phosphate 100 mg tablet 100 mg PO DAILY #90 tabs 12/20/22 [Rx (units unknown) (unknown) (unknown) (no date) (unknown) (unknown) software. Alth ough every effort is made to edit content, concrete tester errors (units unknown) (unknown) (unknown) (no date) (unknown) (unknown) tetracycline A dverse Reaction (Unknown, Verified 02/04/23 11:52) (units unknown) (unknown) Result panel 9 (unknown) (no date) (unknown) (unknown) (no value) (units unknown) (unknown) (unknown) (no date) (unknown) (unknown) 02/04/23 (units unknown) (unknown) (unknown) (no date) (unknown) (unknown) 02/04/23] (units unknown) (unknown) (unknown) (no date) (unknown) (unknown) 08/09/21 [Hist ory Confirmed 02/04/23] (units unknown) (unknown) (unknown) (no date) (unknown) (unknown) 11:52) (units unknown) (unknown) (unknown) (no date) (unknown) (unknown) 12:00 (units unknown) (unknown) (unknown) (no date) (unknown) (unknown) 135/70. (units unknown) (unknown) (unknown) (no date) (unknown) (unknown) 82 Y/O Female presents today for a Diabetes follow up. Her last A1C was tested (units unknown) (unknown) (unknown) (no date) (unknown) (unknown) 82-year-old fe male presents for visit to follow-up on chronic conditions (units unknown) (unknown) (unknown) (no date) (unknown) (unknown) Age/Sex: 82 / F Date of Service: (units unknown) (unknown) (unknown) (no date) (unknown) (unknown) Allergies (units unknown) (unknown) (unknown) (no date) (unknown) (unknown) Allergy to mul tiple antibiotics (units unknown) (unknown) (unknown) (no date) (unknown) (unknown) [place] [address] (units unknown) (unknown) (unknown) (no date) (unknown) (unknown) Anesthesia (units unknown) (unknown) (unknown) (no date) (unknown) (unknown) Attending Dr: Franklin MOSLEY (units unknown) (unknown) (unknown) (no date) (unknown) (unknown) BP 140/70 (units unknown) (unknown) (unknown) (no date) (unknown) (unknown) Blood Pressure Location Lt brachial (units unknown) (unknown) (unknown) (no date) (unknown) (unknown) CODEINE Allerg y (Severe, Uncoded 02/04/23 11:52) (units unknown) (unknown) (unknown) (no date) (unknown) (unknown) Carpal tunnel syndrome (-1976) (units unknown) (unknown) (unknown) (no date) (unknown) (unknown) Chicken pox (-1949) (units unknown) (unknown) (unknown) (no date) (unknown) (unknown) Chief Complaint (uni ts unknown) (unknown) (unknown) (no date) (unknown) (unknown) Chief Complain t: Follow-up diabetes/chronic conditions/labs/medi cations (units unknown) (unknown) (unknown) (no date) (unknown) (unknown) Confirmed 02/04/23] (units unknown) (unknown) (unknown) (no date) (unknown) (unknown) Coronary arter y disease (units unknown) (unknown) (unknown) (no date) (unknown) (unknown) DAILY #90 tabs 01/20/22 [Rx Confirmed 02/04/23] (units unknown) (unknown) (unknown) (no date) (unknown) (unknown) : 0 Acct:[id number] (units unknown) (unknown) (unknown) (no date) (unknown) (unknown) Dept at . (units unknown) (unknown) (unknown) (no date) (unknown) (unknown) Details: (units unknown) (unknown) (unknown) (no date) (unknown) (unknown) Diabetes [place] type 2: Hemoglobin A1c is 7.5% which has increased from (units unknown) (unknown) (unknown) (no date) (unknown) (unknown) Diabetic neuropathy (units unknown) (unknown) (unknown) (no date) (unknown) (unknown) Documented By: Franklin Rizzo 02/04/23 1150 (units unknown) (unknown) (unknown) (no date) (unknown) (unknown) Draft (units unknown) (unknown) (unknown) (no date) (unknown) (unknown) Dupuytren's contracture (units unknown) (unknown) (unknown) (no date) (unknown) (unknown) Dyslipidemia (units unknown) (unknown) (unknown) (no date) (unknown) (unknown) Dyslipidemia:? Low LDL, also slightly low HDL.? Overall calculated non HDL is (units unknown) (unknown) (unknown) (no date) (unknown) (unknown) Essential hypertension (units unknown) (unknown) (unknown) (no date) (unknown) (unknown) FLUCONAZOLE Al lergy (Severe, Uncoded 02/04/23 11:52) (units unknown) (unknown) (unknown) (no date) (unknown) (unknown) Family History (units unknown) (unknown) (unknown) (no date) (unknown) (unknown) Family Practic e Office Visit (units unknown) (unknown) (unknown) (no date) (unknown) (unknown) Father Murder (units unknown) (unknown) (unknown) (no date) (unknown) (unknown) [facility] (units unknown) (unknown) (unknown) (no date) (unknown) (unknown) Foot pain (units unknown) (unknown) (unknown) (no date) (unknown) (unknown) Fractures (units unknown) (unknown) (unknown) (no date) (unknown) (unknown) From [employer] All ergy (Severe, Uncoded 02/04/23 11:52) (units unknown) (unknown) (unknown) (no date) (unknown) (unknown) HPI (units unknown) (unknown) (unknown) (no date) (unknown) (unknown) HYDROCODONE Al lergy (Severe, Uncoded 02/04/23 11:52) (units unknown) (unknown) (unknown) (no date) (unknown) (unknown) Height 149.86 cm (un its unknown) (unknown) (unknown) (no date) (unknown) (unknown) History of abdominoplasty (units unknown) (unknown) (unknown) (no date) (unknown) (unknown) History of casandra k surgery (-2018) (units unknown) (unknown) (unknown) (no date) (unknown) (unknown) History of car pal tunnel release (units unknown) (unknown) (unknown) (no date) (unknown) (unknown) History of tob acco use (units unknown) (unknown) (unknown) (no date) (unknown) (unknown) Hives (units unknown) (unknown) (unknown) (no date) (unknown) (unknown) Hypothyroidism (-1998) (units unknown) (unknown) (unknown) (no date) (unknown) (unknown) Infectious Dis ease by Urology. Infectious Disease recommended D mannose t.i.d. (units unknown) (unknown) (unknown) (no date) (unknown) (unknown) Intake Note: (units unknown) (unknown) (unknown) (no date) (unknown) (unknown) Intake perform ed by: Quiana Camarillo (units unknown) (unknown) (unknown) (no date) (unknown) (unknown) Intake (units unknown) (unknown) (unknown) (no date) (unknown) (unknown) Intake- [place] [facility] Staff (units unknown) (unknown) (unknown) (no date) (unknown) (unknown) Last Menstural Cycle + Details (units unknown) (unknown) (unknown) (no date) (unknown) (unknown) Loc: [facility] (units unknown) (unknown) (unknown) (no date) (unknown) (unknown) Measles (-1955) (uni ts unknown) (unknown) (unknown) (no date) (unknown) (unknown) Medical Histor y (units unknown) (unknown) (unknown) (no date) (unknown) (unknown) Medications (units unknown) (unknown) (unknown) (no date) (unknown) (unknown) Microalbuminur ia:? Worsened compared to previous.? Patient is already on (units unknown) (unknown) (unknown) (no date) (unknown) (unknown) Mother d Brain tumor (units unknown) (unknown) (unknown) (no date) (unknown) (unknown) NITROFURANTOIN Allergy (Severe, Uncoded 02/04/23 11:52) (units unknown) (unknown) (unknown) (no date) (unknown) (unknown) September 01 2 022 she had diagnostic mammogram and ultrasound performed with (units unknown) (unknown) (unknown) (no date) (unknown) (unknown) Osteoporosis (units unknown) (unknown) (unknown) (no date) (unknown) (unknown) Other Menstrua l Period: Postmenopausal (units unknown) (unknown) (unknown) (no date) (unknown) (unknown) Oxygen Deliver y Method room air (units unknown) (unknown) (unknown) (no date) (unknown) (unknown) PFSH (units unknown) (unknown) (unknown) (no date) (unknown) (unknown) POLLEN Allergy (Unknown, Uncoded 02/04/23 11:52) (units unknown) (unknown) (unknown) (no date) (unknown) (unknown) Parkinson's disease (units unknown) (unknown) (unknown) (no date) (unknown) (unknown) Patient states that when she checks her blood pressure at home it has been about (units unknown) (unknown) (unknown) (no date) (unknown) (unknown) Patient: Quiana Santiago (units unknown) (unknown) (unknown) (no date) (unknown) (unknown) Polio (-1943) (units unknown) (unknown) (unknown) (no date) (unknown) (unknown) Position Sitting (un its unknown) (unknown) (unknown) (no date) (unknown) (unknown) Pulse 56 L (units unknown) (unknown) (unknown) (no date) (unknown) (unknown) Pulse Oximetry (%) 97 (units unknown) (unknown) (unknown) (no date) (unknown) (unknown) Pulse Source Monitor (units unknown) (unknown) (unknown) (no date) (unknown) (unknown) R#: [id number] (unit s unknown) (unknown) (unknown) (no date) (unknown) (unknown) RASH (units unknown) (unknown) (unknown) (no date) (unknown) (unknown) Reason For Visit (un its unknown) (unknown) (unknown) (no date) (unknown) (unknown) Rectal bleeding (uni ts unknown) (unknown) (unknown) (no date) (unknown) (unknown) Recurrent UTI (units unknown) (unknown) (unknown) (no date) (unknown) (unknown) Reflux, vesicoureteral (units unknown) (unknown) (unknown) (no date) (unknown) (unknown) STOMACH CRAMPS , 'I CHOKE UP' (units unknown) (unknown) (unknown) (no date) (unknown) (unknown) STOMACH CRAMPS , 'I CRAMP UP' (units unknown) (unknown) (unknown) (no date) (unknown) (unknown) STOMACH CRAMPS, RASH (units unknown) (unknown) (unknown) (no date) (unknown) (unknown) SULFA Allergy (Severe, Uncoded 02/04/23 11:52) (units unknown) (unknown) (unknown) (no date) (unknown) (unknown) She is continu ing to see Urology for recurrent UTI and was also seen by (units unknown) (unknown) (unknown) (no date) (unknown) (unknown) Signed By: (units unknown) (unknown) (unknown) (no date) (unknown) (unknown) Sister d Substance abuse (units unknown) (unknown) (unknown) (no date) (unknown) (unknown) Smoking Status : Former smoker (units unknown) (unknown) (unknown) (no date) (unknown) (unknown) Surgical Histo ry (units unknown) (unknown) (unknown) (no date) (unknown) (unknown) THROAT SWELLIN G, HIVES, 'I CAN'T BREATHE' (units unknown) (unknown) (unknown) (no date) (unknown) (unknown) This note may have been all or partially generated using voice recognition (units unknown) (unknown) (unknown) (no date) (unknown) (unknown) Tobacco + Subs tance Use (units unknown) (unknown) (unknown) (no date) (unknown) (unknown) Tobacco Status (unit s unknown) (unknown) (unknown) (no date) (unknown) (unknown) Today patient is concerned that she still has pain in the left breast.? On (units unknown) (unknown) (unknown) (no date) (unknown) (unknown) Type 2 diabete s mellitus without complication (-1969) (units unknown) (unknown) (unknown) (no date) (unknown) (unknown) Unknown (units unknown) (unknown) (unknown) (no date) (unknown) (unknown) Urge incontinence (u nits unknown) (unknown) (unknown) (no date) (unknown) (unknown) Vaginal itching (uni ts unknown) (unknown) (unknown) (no date) (unknown) (unknown) Visit Reasons: f/u Diabetic check review medication (units unknown) (unknown) (unknown) (no date) (unknown) (unknown) Vitals (units unknown) (unknown) (unknown) (no date) (unknown) (unknown) [Rx Confirmed 02/04/23] (units unknown) (unknown) (unknown) (no date) (unknown) (unknown) advised patien t work hard on diet/exercise measures.? 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 Smoking Tobacco Cutter Operator has been working with her to challenge (units unknown) (unknown) (unknown) (no date) (unknown) (unknown) aspirin 81 mg tablet,delayed release (Adult Aspirin Regimen) 81 mg PO DAILY (units unknown) (unknown) (unknown) (no date) (unknown) (unknown) atorvastatin 4 0 mg tablet 40 mg PO BEDTIME #90 tabs 12/20/22 [Rx Confirmed (units unknown) (unknown) (unknown) (no date) (unknown) (unknown) cephalexin Adv erse Reaction (Unknown, Verified 02/04/23 11:52) (units unknown) (unknown) (unknown) (no date) (unknown) (unknown) clavulanic aci d [From Augmentin] Adverse Reaction (Unknown, Verified 02/04/23 (units unknown) (unknown) (unknown) (no date) (unknown) (unknown) clindamycin Ad verse Reaction (Unknown, Verified 02/04/23 11:52) (units unknown) (unknown) (unknown) (no date) (unknown) (unknown) clotrimazole 1 % topical cream 1 applic topical 02/04/23 [History Confirmed (units unknown) (unknown) (unknown) (no date) (unknown) (unknown) favorable.? Co ntinue regimen.? (units unknown) (unknown) (unknown) (no date) (unknown) (unknown) furosemide 20 mg tablet (Lasix) 20 mg PO BID PRN edema #180 tabs 12/20/22 [Rx (units unknown) (unknown) (unknown) (no date) (unknown) (unknown) getting home c alled to report vomiting and diarrhea. She had been challenged (units unknown) (unknown) (unknown) (no date) (unknown) (unknown) glycemic contr ol, lipid profile.? Recheck in 6 months. (units unknown) (unknown) (unknown) (no date) (unknown) (unknown) have occurred. If there are any questions, please contact the Medical Records (units unknown) (unknown) (unknown) (no date) (unknown) (unknown) ibuprofen Adve rse Reaction (Intermediate, Verified 02/04/23 11:52) (units unknown) (unknown) (unknown) (no date) (unknown) (unknown) including diab etes mellitus type 2, lab work, med review. (units unknown) (unknown) (unknown) (no date) (unknown) (unknown) left nipple enamorado s changed slightly.? No palpable lumps noted.? No discharge from (units unknown) (unknown) (unknown) (no date) (unknown) (unknown) levofloxacin [ From Levaquin] Allergy (Intermediate, Verified 02/04/23 11:52) (units unknown) (unknown) (unknown) (no date) (unknown) (unknown) levothyroxine 137 mcg tablet 137 mcg PO DAILY #90 tabs 12/20/22 [Rx Confirmed (units unknown) (unknown) (unknown) (no date) (unknown) (unknown) liothyronine 5 mcg tablet (Cytomel) 10 mcg PO DAILY #180 tabs 12/20/22 [Rx (units unknown) (unknown) (unknown) (no date) (unknown) (unknown) losartan 100 m g daily.? We will continue to focus on optimizing blood pressure, (units unknown) (unknown) (unknown) (no date) (unknown) (unknown) losartan 100 m g tablet 100 mg PO DAILY #90 tabs 12/20/22 [Rx Confirmed 02/04/23] (units unknown) (unknown) (unknown) (no date) (unknown) (unknown) may occur. Occasional wrong-word or 'sound-alike' substitutions may have (units unknown) (unknown) (unknown) (no date) (unknown) (unknown) metformin 1,00 0 mg tablet 1,000 mg PO BID #180 tabs 09/01/22 [Rx Confirmed (units unknown) (unknown) (unknown) (no date) (unknown) (unknown) methenamine an d vitamin-C, followed by recommendation for suppressive (units unknown) (unknown) (unknown) (no date) (unknown) (unknown) metoprolol suc cinate 50 mg tablet,extended release 24 hr (Toprol XL) 50 mg PO (units unknown) (unknown) (unknown) (no date) (unknown) (unknown) months followe d by a visit. (units unknown) (unknown) (unknown) (no date) (unknown) (unknown) negative resul ts.? However, her pain persists.? She feels that the color of the (units unknown) (unknown) (unknown) (no date) (unknown) (unknown) nifedipine 30 mg tablet,extended release 24 hr 30 mg PO DAILY #90 tabs 12/16/22 (units unknown) (unknown) (unknown) (no date) (unknown) (unknown) occurred due t o the inherent limitations of voice recognition software. Please (units unknown) (unknown) (unknown) (no date) (unknown) (unknown) on 02-03-23 and was 7.4. (units unknown) (unknown) (unknown) (no date) (unknown) (unknown) order to try t o determine which are true allergies. Also was referred to (units unknown) (unknown) (unknown) (no date) (unknown) (unknown) previous level s.? Given her age this level as not excessively elevated although (units unknown) (unknown) (unknown) (no date) (unknown) (unknown) rash on the si de of the knee later that day. (units unknown) (unknown) (unknown) (no date) (unknown) (unknown) read the note carefully and recognize, using context, where these substitutions (units unknown) (unknown) (unknown) (no date) (unknown) (unknown) sitagliptin phosphate 100 mg tablet 100 mg PO DAILY #90 tabs 12/20/22 [Rx (units unknown) (unknown) (unknown) (no date) (unknown) (unknown) software. Alth ough every effort is made to edit content, concrete tester errors (units unknown) (unknown) (unknown) (no date) (unknown) (unknown) tetracycline A dverse Reaction (Unknown, Verified 02/04/23 11:52) (units unknown) (unknown) (unknown) (no date) (unknown) (unknown) the nipple or other skin changes of the breast. (units unknown) (unknown) (unknown) (no date) (unknown) (unknown) took Augmentin while in the office which she seemed to tolerate well but after (units unknown) (unknown) (unknown) (no date) (unknown) (unknown) with antibioti cs; we received their note from November 27 in which patient (units unknown) (unknown) (unknown) (no date) (unknown) (unknown) with ciproflox acin at the last visit and had a delayed development of a fixed (units unknown) (unknown) (unknown) (no date) (unknown) (unknown) with meals the n if this did not work and if normal creatinine consider (units unknown) (unknown) (unknown) (no date) (unknown) (unknown) would be optim al to get this a bit lower.? We will continue current regimen and (units unknown) (unknown) Result panel 10 (unknown) (no date) (unknown) (unknown) (no value) (units unknown) (unknown) (unknown) (no date) (unknown) (unknown) 02/04/23 (units unknown) (unknown) (unknown) (no date) (unknown) (unknown) 02/04/23] (units unknown) (unknown) (unknown) (no date) (unknown) (unknown) 08/09/21 [Hist ory Confirmed 02/04/23] (units unknown) (unknown) (unknown) (no date) (unknown) (unknown) 11:52) (units unknown) (unknown) (unknown) (no date) (unknown) (unknown) 12:00 (units unknown) (unknown) (unknown) (no date) (unknown) (unknown) 135/70. (units unknown) (unknown) (unknown) (no date) (unknown) (unknown) 82 Y/O Female presents today for a Diabetes follow up. Her last A1C was tested (units unknown) (unknown) (unknown) (no date) (unknown) (unknown) 82-year-old fe male presents for visit to follow-up on chronic conditions (units unknown) (unknown) (unknown) (no date) (unknown) (unknown) Age/Sex: 82 / F Date of Service: (units unknown) (unknown) (unknown) (no date) (unknown) (unknown) Allergies (units unknown) (unknown) (unknown) (no date) (unknown) (unknown) Allergy to mul tiple antibiotics (units unknown) (unknown) (unknown) (no date) (unknown) (unknown) [place] [address] (units unknown) (unknown) (unknown) (no date) (unknown) (unknown) Anesthesia (units unknown) (unknown) (unknown) (no date) (unknown) (unknown) Attending Dr: Franklin MOSLEY (units unknown) (unknown) (unknown) (no date) (unknown) (unknown) BP 140/70 (units unknown) (unknown) (unknown) (no date) (unknown) (unknown) Blood Pressure Location Lt brachial (units unknown) (unknown) (unknown) (no date) (unknown) (unknown) CODEINE Allerg y (Severe, Uncoded 02/04/23 11:52) (units unknown) (unknown) (unknown) (no date) (unknown) (unknown) Carpal tunnel syndrome (-1976) (units unknown) (unknown) (unknown) (no date) (unknown) (unknown) Chicken pox (-1949) (units unknown) (unknown) (unknown) (no date) (unknown) (unknown) Chief Complaint (uni ts unknown) (unknown) (unknown) (no date) (unknown) (unknown) Chief Complain t: Follow-up diabetes/chronic conditions/labs/medi cations (units unknown) (unknown) (unknown) (no date) (unknown) (unknown) Confirmed 02/04/23] (units unknown) (unknown) (unknown) (no date) (unknown) (unknown) Coronary arter y disease (units unknown) (unknown) (unknown) (no date) (unknown) (unknown) DAILY #90 tabs 01/20/22 [Rx Confirmed 02/04/23] (units unknown) (unknown) (unknown) (no date) (unknown) (unknown) : 0 Acct:[id number] (units unknown) (unknown) (unknown) (no date) (unknown) (unknown) Dept at . (units unknown) (unknown) (unknown) (no date) (unknown) (unknown) Details: (units unknown) (unknown) (unknown) (no date) (unknown) (unknown) Diabetes [facility] type 2: Hemoglobin A1c is 7.5% which has increased from (units unknown) (unknown) (unknown) (no date) (unknown) (unknown) Diabetic neuropathy (units unknown) (unknown) (unknown) (no date) (unknown) (unknown) Documented By: Franklin Rizzo 02/04/23 1150 (units unknown) (unknown) (unknown) (no date) (unknown) (unknown) Draft (units unknown) (unknown) (unknown) (no date) (unknown) (unknown) Dupuytren's contracture (units unknown) (unknown) (unknown) (no date) (unknown) (unknown) Dyslipidemia (units unknown) (unknown) (unknown) (no date) (unknown) (unknown) Dyslipidemia:? Low LDL, also slightly low HDL.? Overall calculated non HDL is (units unknown) (unknown) (unknown) (no date) (unknown) (unknown) Essential hypertension (units unknown) (unknown) (unknown) (no date) (unknown) (unknown) FLUCONAZOLE Al lergy (Severe, Uncoded 02/04/23 11:52) (units unknown) (unknown) (unknown) (no date) (unknown) (unknown) Family History (units unknown) (unknown) (unknown) (no date) (unknown) (unknown) Family Practic e Office Visit (units unknown) (unknown) (unknown) (no date) (unknown) (unknown) Father Murder (units unknown) (unknown) (unknown) (no date) (unknown) (unknown) [facility] (units unknown) (unknown) (unknown) (no date) (unknown) (unknown) Foot pain (units unknown) (unknown) (unknown) (no date) (unknown) (unknown) Fractures (units unknown) (unknown) (unknown) (no date) (unknown) (unknown) From [place]ama All ergy (Severe, Uncoded 02/04/23 11:52) (units unknown) (unknown) (unknown) (no date) (unknown) (unknown) HPI (units unknown) (unknown) (unknown) (no date) (unknown) (unknown) HYDROCODONE Al lergy (Severe, Uncoded 02/04/23 11:52) (units unknown) (unknown) (unknown) (no date) (unknown) (unknown) Height 149.86 cm (un its unknown) (unknown) (unknown) (no date) (unknown) (unknown) History of abdominoplasty (units unknown) (unknown) (unknown) (no date) (unknown) (unknown) History of casandra k surgery (-2019) (units unknown) (unknown) (unknown) (no date) (unknown) (unknown) History of car pal tunnel release (units unknown) (unknown) (unknown) (no date) (unknown) (unknown) History of tob acco use (units unknown) (unknown) (unknown) (no date) (unknown) (unknown) Hives (units unknown) (unknown) (unknown) (no date) (unknown) (unknown) Hypothyroidism (-1998) (units unknown) (unknown) (unknown) (no date) (unknown) (unknown) Infectious Dis ease by Urology. Infectious Disease recommended D mannose t.i.d. (units unknown) (unknown) (unknown) (no date) (unknown) (unknown) Intake Note: (units unknown) (unknown) (unknown) (no date) (unknown) (unknown) Intake perform ed by: Quiana Camarillo (units unknown) (unknown) (unknown) (no date) (unknown) (unknown) Intake (units unknown) (unknown) (unknown) (no date) (unknown) (unknown) Intake- Magno al Staff (units unknown) (unknown) (unknown) (no date) (unknown) (unknown) Last Menstural Cycle + Details (units unknown) (unknown) (unknown) (no date) (unknown) (unknown) Loc: [facility] (units unknown) (unknown) (unknown) (no date) (unknown) (unknown) Measles (-1955) (uni ts unknown) (unknown) (unknown) (no date) (unknown) (unknown) Medical Histor y (units unknown) (unknown) (unknown) (no date) (unknown) (unknown) Medications (units unknown) (unknown) (unknown) (no date) (unknown) (unknown) Microalbuminur ia:? Worsened compared to previous.? Patient is already on (units unknown) (unknown) (unknown) (no date) (unknown) (unknown) Mother d Brain tumor (units unknown) (unknown) (unknown) (no date) (unknown) (unknown) NITROFURANTOIN Allergy (Severe, Uncoded 02/04/23 11:52) (units unknown) (unknown) (unknown) (no date) (unknown) (unknown) September 01, 2 022 she had diagnostic mammogram and ultrasound performed with (units unknown) (unknown) (unknown) (no date) (unknown) (unknown) Osteoporosis (units unknown) (unknown) (unknown) (no date) (unknown) (unknown) Other Menstrua l Period: Postmenopausal (units unknown) (unknown) (unknown) (no date) (unknown) (unknown) Oxygen Deliver y Method room air (units unknown) (unknown) (unknown) (no date) (unknown) (unknown) PFS (units unknown) (unknown) (unknown) (no date) (unknown) (unknown) POLLEN Allergy (Unknown, Uncoded 02/04/23 11:52) (units unknown) (unknown) (unknown) (no date) (unknown) (unknown) Parkinson's disease (units unknown) (unknown) (unknown) (no date) (unknown) (unknown) Patient states that when she checks her blood pressure at home it has been about (units unknown) (unknown) (unknown) (no date) (unknown) (unknown) Patient: Quiana Santiago (units unknown) (unknown) (unknown) (no date) (unknown) (unknown) Polio (-1943) (units unknown) (unknown) (unknown) (no date) (unknown) (unknown) Position Sitting (un its unknown) (unknown) (unknown) (no date) (unknown) (unknown) Pulse 56 L (units unknown) (unknown) (unknown) (no date) (unknown) (unknown) Pulse Oximetry (%) 97 (units unknown) (unknown) (unknown) (no date) (unknown) (unknown) Pulse Source Monitor (units unknown) (unknown) (unknown) (no date) (unknown) (unknown) R#: [id number] (unit s unknown) (unknown) (unknown) (no date) (unknown) (unknown) RASH (units unknown) (unknown) (unknown) (no date) (unknown) (unknown) Reason For Visit (un its unknown) (unknown) (unknown) (no date) (unknown) (unknown) Rectal bleeding (uni ts unknown) (unknown) (unknown) (no date) (unknown) (unknown) Recurrent UTI (units unknown) (unknown) (unknown) (no date) (unknown) (unknown) Reflux, vesicoureteral (units unknown) (unknown) (unknown) (no date) (unknown) (unknown) STOMACH CRAMPS , 'I CHOKE UP' (units unknown) (unknown) (unknown) (no date) (unknown) (unknown) STOMACH CRAMPS , 'I CRAMP UP' (units unknown) (unknown) (unknown) (no date) (unknown) (unknown) STOMACH CRAMPS, RASH (units unknown) (unknown) (unknown) (no date) (unknown) (unknown) SULFA Allergy (Severe, Uncoded 02/04/23 11:52) (units unknown) (unknown) (unknown) (no date) (unknown) (unknown) She is continu ing to see Urology for recurrent UTI and was also seen by (units unknown) (unknown) (unknown) (no date) (unknown) (unknown) Signed By: (units unknown) (unknown) (unknown) (no date) (unknown) (unknown) Sister [place]ita [place] Substance abuse (units unknown) (unknown) (unknown) (no date) (unknown) (unknown) Smoking Status : Former smoker (units unknown) (unknown) (unknown) (no date) (unknown) (unknown) Surgical Histo ry (units unknown) (unknown) (unknown) (no date) (unknown) (unknown) THROAT SWELLIN G, HIVES, 'I CAN'T BREATHE' (units unknown) (unknown) (unknown) (no date) (unknown) (unknown) This note may have been all or partially generated using voice recognition (units unknown) (unknown) (unknown) (no date) (unknown) (unknown) Tobacco + Subs tance Use (units unknown) (unknown) (unknown) (no date) (unknown) (unknown) Tobacco Status (unit s unknown) (unknown) (unknown) (no date) (unknown) (unknown) Today patient is concerned that she still has pain in the left breast.? On (units unknown) (unknown) (unknown) (no date) (unknown) (unknown) Type 2 diabete s mellitus without complication (-1969) (units unknown) (unknown) (unknown) (no date) (unknown) (unknown) Unknown (units unknown) (unknown) (unknown) (no date) (unknown) (unknown) Urge incontinence (u nits unknown) (unknown) (unknown) (no date) (unknown) (unknown) Vaginal itching (uni ts unknown) (unknown) (unknown) (no date) (unknown) (unknown) Visit Reasons: f/u Diabetic check review medication (units unknown) (unknown) (unknown) (no date) (unknown) (unknown) Vitals (units unknown) (unknown) (unknown) (no date) (unknown) (unknown) [Rx Confirmed 02/04/23] (units unknown) (unknown) (unknown) (no date) (unknown) (unknown) advised danika t work hard on diet/exercise measures.? 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 Smoking Tobacco Cutter Operator has been working with her to challenge (units unknown) (unknown) (unknown) (no date) (unknown) (unknown) aspirin 81 mg tablet,delayed release (Adult Aspirin Regimen) 81 mg PO DAILY (units unknown) (unknown) (unknown) (no date) (unknown) (unknown) atorvastatin 4 0 mg tablet 40 mg PO BEDTIME #90 tabs 12/20/22 [Rx Confirmed (units unknown) (unknown) (unknown) (no date) (unknown) (unknown) cephalexin Adv erse Reaction (Unknown, Verified 02/04/23 11:52) (units unknown) (unknown) (unknown) (no date) (unknown) (unknown) clavulanic aci d [From Augmentin] Adverse Reaction (Unknown, Verified 02/04/23 (units unknown) (unknown) (unknown) (no date) (unknown) (unknown) clindamycin Ad verse Reaction (Unknown, Verified 02/04/23 11:52) (units unknown) (unknown) (unknown) (no date) (unknown) (unknown) clotrimazole 1 % topical cream 1 applic topical 02/04/23 [History Confirmed (units unknown) (unknown) (unknown) (no date) (unknown) (unknown) favorable.? Co ntinue regimen.? (units unknown) (unknown) (unknown) (no date) (unknown) (unknown) furosemide 20 mg tablet (Lasix) 20 mg PO BID PRN edema #180 tabs 12/20/22 [Rx (units unknown) (unknown) (unknown) (no date) (unknown) (unknown) getting home c alled to report vomiting and diarrhea. She had been challenged (units unknown) (unknown) (unknown) (no date) (unknown) (unknown) glycemic contr ol, lipid profile.? Recheck in 6 months. (units unknown) (unknown) (unknown) (no date) (unknown) (unknown) have occurred. If there are any questions, please contact the Medical Records (units unknown) (unknown) (unknown) (no date) (unknown) (unknown) ibuprofen Adve rse Reaction (Intermediate, Verified 02/04/23 11:52) (units unknown) (unknown) (unknown) (no date) (unknown) (unknown) including diab etes mellitus type 2, lab work, med review. (units unknown) (unknown) (unknown) (no date) (unknown) (unknown) left nipple enamorado s changed slightly.? No palpable lumps noted.? No discharge from (units unknown) (unknown) (unknown) (no date) (unknown) (unknown) levofloxacin [ From Levaquin] Allergy (Intermediate, Verified 02/04/23 11:52) (units unknown) (unknown) (unknown) (no date) (unknown) (unknown) levothyroxine 137 mcg tablet 137 mcg PO DAILY #90 tabs 12/20/22 [Rx Confirmed (units unknown) (unknown) (unknown) (no date) (unknown) (unknown) liothyronine 5 mcg tablet (Cytomel) 10 mcg PO DAILY #180 tabs 12/20/22 [Rx (units unknown) (unknown) (unknown) (no date) (unknown) (unknown) losartan 100 m g daily.? We will continue to focus on optimizing blood pressure, (units unknown) (unknown) (unknown) (no date) (unknown) (unknown) losartan 100 m g tablet 100 mg PO DAILY #90 tabs 12/20/22 [Rx Confirmed 02/04/23] (units unknown) (unknown) (unknown) (no date) (unknown) (unknown) may occur. Occasional wrong-word or 'sound-alike' substitutions may have (units unknown) (unknown) (unknown) (no date) (unknown) (unknown) metformin 1,00 0 mg tablet 1,000 mg PO BID #180 tabs 09/01/22 [Rx Confirmed (units unknown) (unknown) (unknown) (no date) (unknown) (unknown) methenamine an d vitamin-C, followed by recommendation for suppressive (units unknown) (unknown) (unknown) (no date) (unknown) (unknown) metoprolol suc cinate 50 mg tablet,extended release 24 hr (Toprol XL) 50 mg PO (units unknown) (unknown) (unknown) (no date) (unknown) (unknown) months followe d by a visit. (units unknown) (unknown) (unknown) (no date) (unknown) (unknown) negative resul ts.? However, her pain persists.? She feels that the color of the (units unknown) (unknown) (unknown) (no date) (unknown) (unknown) nifedipine 30 mg tablet,extended release 24 hr 30 mg PO DAILY #90 tabs 12/16/22 (units unknown) (unknown) (unknown) (no date) (unknown) (unknown) occurred due t o the inherent limitations of voice recognition software. Please (units unknown) (unknown) (unknown) (no date) (unknown) (unknown) on 02-03-23 and was 7.4. (units unknown) (unknown) (unknown) (no date) (unknown) (unknown) order to try t o determine which are true allergies. Also was referred to (units unknown) (unknown) (unknown) (no date) (unknown) (unknown) previous level s.? Given her age this level as not excessively elevated although (units unknown) (unknown) (unknown) (no date) (unknown) (unknown) rash on the si de of the knee later that day. (units unknown) (unknown) (unknown) (no date) (unknown) (unknown) read the note carefully and recognize, using context, where these substitutions (units unknown) (unknown) (unknown) (no date) (unknown) (unknown) senior workout s to help with balance (units unknown) (unknown) (unknown) (no date) (unknown) (unknown) sitagliptin phosphate 100 mg tablet 100 mg PO DAILY #90 tabs 12/20/22 [Rx (units unknown) (unknown) (unknown) (no date) (unknown) (unknown) software. Alth ough every effort is made to edit content, concrete tester errors (units unknown) (unknown) (unknown) (no date) (unknown) (unknown) tetracycline A dverse Reaction (Unknown, Verified 02/04/23 11:52) (units unknown) (unknown) (unknown) (no date) (unknown) (unknown) the nipple or other skin changes of the breast. (units unknown) (unknown) (unknown) (no date) (unknown) (unknown) took Augmentin while in the office which she seemed to tolerate well but after (units unknown) (unknown) (unknown) (no date) (unknown) (unknown) with antibioti cs; we received their note from November 27 in which patient (units unknown) (unknown) (unknown) (no date) (unknown) (unknown) with ciproflox acin at the last visit and had a delayed development of a fixed (units unknown) (unknown) (unknown) (no date) (unknown) (unknown) with meals the n if this did not work and if normal creatinine consider (units unknown) (unknown) (unknown) (no date) (unknown) (unknown) would be optim al to get this a bit lower.? We will continue current regimen and (units unknown) (unknown) Result panel 11 (unknown) (no date) (unknown) (unknown) (no value) (units unknown) (unknown) (unknown) (no date) (unknown) (unknown) 02/04/23 (units unknown) (unknown) (unknown) (no date) (unknown) (unknown) 02/04/23] (units unknown) (unknown) (unknown) (no date) (unknown) (unknown) 08/09/21 [Hist ory Confirmed 02/04/23] (units unknown) (unknown) (unknown) (no date) (unknown) (unknown) 11:52) (units unknown) (unknown) (unknown) (no date) (unknown) (unknown) 12:00 (units unknown) (unknown) (unknown) (no date) (unknown) (unknown) 135/70. (units unknown) (unknown) (unknown) (no date) (unknown) (unknown) 82 Y/O Female presents today for a Diabetes follow up. Her last A1C was tested (units unknown) (unknown) (unknown) (no date) (unknown) (unknown) 82-year-old fe male presents for visit to follow-up on chronic conditions (units unknown) (unknown) (unknown) (no date) (unknown) (unknown) Age/Sex: 82 / F Date of Service: (units unknown) (unknown) (unknown) (no date) (unknown) (unknown) Allergies (units unknown) (unknown) (unknown) (no date) (unknown) (unknown) Allergy to mul tiple antibiotics (units unknown) (unknown) (unknown) (no date) (unknown) (unknown) [place] [address] (units unknown) (unknown) (unknown) (no date) (unknown) (unknown) Anesthesia (units unknown) (unknown) (unknown) (no date) (unknown) (unknown) Attending Dr: Franklin MOSLEY (units unknown) (unknown) (unknown) (no date) (unknown) (unknown) BP 140/70 (units unknown) (unknown) (unknown) (no date) (unknown) (unknown) Blood Pressure Location Lt brachial (units unknown) (unknown) (unknown) (no date) (unknown) (unknown) CODEINE Allerg y (Severe, Uncoded 02/04/23 11:52) (units unknown) (unknown) (unknown) (no date) (unknown) (unknown) Carpal tunnel syndrome (-1976) (units unknown) (unknown) (unknown) (no date) (unknown) (unknown) Chicken pox (-1949) (units unknown) (unknown) (unknown) (no date) (unknown) (unknown) Chief Complaint (uni ts unknown) (unknown) (unknown) (no date) (unknown) (unknown) Chief Complain t: Follow-up diabetes/chronic conditions/labs/medi cations (units unknown) (unknown) (unknown) (no date) (unknown) (unknown) Confirmed 02/04/23] (units unknown) (unknown) (unknown) (no date) (unknown) (unknown) Coronary arter y disease (units unknown) (unknown) (unknown) (no date) (unknown) (unknown) DAILY #90 tabs 01/20/22 [Rx Confirmed 02/04/23] (units unknown) (unknown) (unknown) (no date) (unknown) (unknown) : 0 Acct:[id number] (units unknown) (unknown) (unknown) (no date) (unknown) (unknown) Dept at . (units unknown) (unknown) (unknown) (no date) (unknown) (unknown) Details: (units unknown) (unknown) (unknown) (no date) (unknown) (unknown) Diabetes [facility] type 2: Hemoglobin A1c is 7.5% which has increased from (units unknown) (unknown) (unknown) (no date) (unknown) (unknown) Diabetic neuropathy (units unknown) (unknown) (unknown) (no date) (unknown) (unknown) Documented By: Franklin Rizzo 02/04/23 1150 (units unknown) (unknown) (unknown) (no date) (unknown) (unknown) Draft (units unknown) (unknown) (unknown) (no date) (unknown) (unknown) Dupuytren's contracture (units unknown) (unknown) (unknown) (no date) (unknown) (unknown) Dyslipidemia (units unknown) (unknown) (unknown) (no date) (unknown) (unknown) Dyslipidemia:? Low LDL, also slightly low HDL.? Overall calculated non HDL is (units unknown) (unknown) (unknown) (no date) (unknown) (unknown) Essential hypertension (units unknown) (unknown) (unknown) (no date) (unknown) (unknown) FLUCONAZOLE Al lergy (Severe, Uncoded 02/04/23 11:52) (units unknown) (unknown) (unknown) (no date) (unknown) (unknown) Family History (units unknown) (unknown) (unknown) (no date) (unknown) (unknown) Family Practic e Office Visit (units unknown) (unknown) (unknown) (no date) (unknown) (unknown) Father Murder (units unknown) (unknown) (unknown) (no date) (unknown) (unknown) [facility] (units unknown) (unknown) (unknown) (no date) (unknown) (unknown) Foot pain (units unknown) (unknown) (unknown) (no date) (unknown) (unknown) Fractures (units unknown) (unknown) (unknown) (no date) (unknown) (unknown) From CIPRO All ergy (Severe, Uncoded 02/04/23 11:52) (units unknown) (unknown) (unknown) (no date) (unknown) (unknown) HPI (units unknown) (unknown) (unknown) (no date) (unknown) (unknown) HYDROCODONE Al lergy (Severe, Uncoded 02/04/23 11:52) (units unknown) (unknown) (unknown) (no date) (unknown) (unknown) Height 149.86 cm (un its unknown) (unknown) (unknown) (no date) (unknown) (unknown) History of abdominoplasty (units unknown) (unknown) (unknown) (no date) (unknown) (unknown) History of casandra k surgery (-2018) (units unknown) (unknown) (unknown) (no date) (unknown) (unknown) History of car pal tunnel release (units unknown) (unknown) (unknown) (no date) (unknown) (unknown) History of tob acco use (units unknown) (unknown) (unknown) (no date) (unknown) (unknown) Hives (units unknown) (unknown) (unknown) (no date) (unknown) (unknown) Hypothyroidism (-1998) (units unknown) (unknown) (unknown) (no date) (unknown) (unknown) Infectious Dis ease by Urology. Infectious Disease recommended D mannose t.i.d. (units unknown) (unknown) (unknown) (no date) (unknown) (unknown) Intake Note: (units unknown) (unknown) (unknown) (no date) (unknown) (unknown) Intake perform ed by: Quiana Camarillo (units unknown) (unknown) (unknown) (no date) (unknown) (unknown) Intake (units unknown) (unknown) (unknown) (no date) (unknown) (unknown) Intake- Magno al Staff (units unknown) (unknown) (unknown) (no date) (unknown) (unknown) Last Menstural Cycle + Details (units unknown) (unknown) (unknown) (no date) (unknown) (unknown) Loc: [facility] (units unknown) (unknown) (unknown) (no date) (unknown) (unknown) Measles (-1955) (uni ts unknown) (unknown) (unknown) (no date) (unknown) (unknown) Medical Histor y (units unknown) (unknown) (unknown) (no date) (unknown) (unknown) Medications (units unknown) (unknown) (unknown) (no date) (unknown) (unknown) Microalbuminur ia:? Worsened compared to previous.? Patient is already on (units unknown) (unknown) (unknown) (no date) (unknown) (unknown) Mother d Brain tumor (units unknown) (unknown) (unknown) (no date) (unknown) (unknown) NITROFURANTOIN Allergy (Severe, Uncoded 02/04/23 11:52) (units unknown) (unknown) (unknown) (no date) (unknown) (unknown) September 01, 2 022 she had diagnostic mammogram and ultrasound performed with (units unknown) (unknown) (unknown) (no date) (unknown) (unknown) Osteoporosis (units unknown) (unknown) (unknown) (no date) (unknown) (unknown) Other Menstrua l Period: Postmenopausal (units unknown) (unknown) (unknown) (no date) (unknown) (unknown) Oxygen Deliver y Method room air (units unknown) (unknown) (unknown) (no date) (unknown) (unknown) PFSH (units unknown) (unknown) (unknown) (no date) (unknown) (unknown) POLLEN Allergy (Unknown, Uncoded 02/04/23 11:52) (units unknown) (unknown) (unknown) (no date) (unknown) (unknown) Parkinson's disease (units unknown) (unknown) (unknown) (no date) (unknown) (unknown) Patient states that when she checks her blood pressure at home it has been about (units unknown) (unknown) (unknown) (no date) (unknown) (unknown) Patient: Quiana Santiago (units unknown) (unknown) (unknown) (no date) (unknown) (unknown) Polio (-1943) (units unknown) (unknown) (unknown) (no date) (unknown) (unknown) Position Sitting (un its unknown) (unknown) (unknown) (no date) (unknown) (unknown) Pulse 56 L (units unknown) (unknown) (unknown) (no date) (unknown) (unknown) Pulse Oximetry (%) 97 (units unknown) (unknown) (unknown) (no date) (unknown) (unknown) Pulse Source Monitor (units unknown) (unknown) (unknown) (no date) (unknown) (unknown) R#: [id number] (unit s unknown) (unknown) (unknown) (no date) (unknown) (unknown) RASH (units unknown) (unknown) (unknown) (no date) (unknown) (unknown) Reason For Visit (un its unknown) (unknown) (unknown) (no date) (unknown) (unknown) Rectal bleeding (uni ts unknown) (unknown) (unknown) (no date) (unknown) (unknown) Recurrent UTI (units unknown) (unknown) (unknown) (no date) (unknown) (unknown) Reflux, vesicoureteral (units unknown) (unknown) (unknown) (no date) (unknown) (unknown) STOMACH CRAMPS , 'I CHOKE UP' (units unknown) (unknown) (unknown) (no date) (unknown) (unknown) STOMACH CRAMPS , 'I CRAMP UP' (units unknown) (unknown) (unknown) (no date) (unknown) (unknown) STOMACH CRAMPS, RASH (units unknown) (unknown) (unknown) (no date) (unknown) (unknown) SULFA Allergy (Severe, Uncoded 02/04/23 11:52) (units unknown) (unknown) (unknown) (no date) (unknown) (unknown) She is continu ing to see Urology for recurrent UTI and was also seen by (units unknown) (unknown) (unknown) (no date) (unknown) (unknown) Signed By: (units unknown) (unknown) (unknown) (no date) (unknown) (unknown) Sister Rosita [place] Substance abuse (units unknown) (unknown) (unknown) (no date) (unknown) (unknown) Smoking Status : Former smoker (units unknown) (unknown) (unknown) (no date) (unknown) (unknown) Surgical Histo ry (units unknown) (unknown) (unknown) (no date) (unknown) (unknown) THROAT SWELLIN G, HIVES, 'I CAN'T BREATHE' (units unknown) (unknown) (unknown) (no date) (unknown) (unknown) This note may have been all or partially generated using voice recognition (units unknown) (unknown) (unknown) (no date) (unknown) (unknown) Tobacco + Subs tance Use (units unknown) (unknown) (unknown) (no date) (unknown) (unknown) Tobacco Status (unit s unknown) (unknown) (unknown) (no date) (unknown) (unknown) Today patient is concerned that she still has pain in the left breast.? On (units unknown) (unknown) (unknown) (no date) (unknown) (unknown) Type 2 diabete s mellitus without complication (-1969) (units unknown) (unknown) (unknown) (no date) (unknown) (unknown) Unknown (units unknown) (unknown) (unknown) (no date) (unknown) (unknown) Urge incontinence (u nits unknown) (unknown) (unknown) (no date) (unknown) (unknown) Vaginal itching (uni ts unknown) (unknown) (unknown) (no date) (unknown) (unknown) Visit Reasons: f/u Diabetic check review medication (units unknown) (unknown) (unknown) (no date) (unknown) (unknown) Vitals (units unknown) (unknown) (unknown) (no date) (unknown) (unknown) [Rx Confirmed 02/04/23] (units unknown) (unknown) (unknown) (no date) (unknown) (unknown) advised patien t work hard on diet/exercise measures.? 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 Smoking Tobacco Cutter Operator has been working with her to challenge (units unknown) (unknown) (unknown) (no date) (unknown) (unknown) aspirin 81 mg tablet,delayed release (Adult Aspirin Regimen) 81 mg PO DAILY (units unknown) (unknown) (unknown) (no date) (unknown) (unknown) atorvastatin 4 0 mg tablet 40 mg PO BEDTIME #90 tabs 12/20/22 [Rx Confirmed (units unknown) (unknown) (unknown) (no date) (unknown) (unknown) bp at home 135/70s. (units unknown) (unknown) (unknown) (no date) (unknown) (unknown) cardiology marcelino seno in march. (units unknown) (unknown) (unknown) (no date) (unknown) (unknown) cephalexin Adv erse Reaction (Unknown, Verified 02/04/23 11:52) (units unknown) (unknown) (unknown) (no date) (unknown) (unknown) clavulanic aci d [From Augmentin] Adverse Reaction (Unknown, Verified 02/04/23 (units unknown) (unknown) (unknown) (no date) (unknown) (unknown) clindamycin Ad verse Reaction (Unknown, Verified 02/04/23 11:52) (units unknown) (unknown) (unknown) (no date) (unknown) (unknown) clotrimazole 1 % topical cream 1 applic topical 02/04/23 [History Confirmed (units unknown) (unknown) (unknown) (no date) (unknown) (unknown) favorable.? Co ntinue regimen.? (units unknown) (unknown) (unknown) (no date) (unknown) (unknown) furosemide 20 mg tablet (Lasix) 20 mg PO BID PRN edema #180 tabs 12/20/22 [Rx (units unknown) (unknown) (unknown) (no date) (unknown) (unknown) getting home c alled to report vomiting and diarrhea. She had been challenged (units unknown) (unknown) (unknown) (no date) (unknown) (unknown) glycemic contr ol, lipid profile.? Recheck in 6 months. (units unknown) (unknown) (unknown) (no date) (unknown) (unknown) have occurred. If there are any questions, please contact the Medical Records (units unknown) (unknown) (unknown) (no date) (unknown) (unknown) ibuprofen Adve rse Reaction (Intermediate, Verified 02/04/23 11:52) (units unknown) (unknown) (unknown) (no date) (unknown) (unknown) including diab etes mellitus type 2, lab work, med review. (units unknown) (unknown) (unknown) (no date) (unknown) (unknown) left nipple enamorado s changed slightly.? No palpable lumps noted.? No discharge from (units unknown) (unknown) (unknown) (no date) (unknown) (unknown) levofloxacin [ From Levaquin] Allergy (Intermediate, Verified 02/04/23 11:52) (units unknown) (unknown) (unknown) (no date) (unknown) (unknown) levothyroxine 137 mcg tablet 137 mcg PO DAILY #90 tabs 12/20/22 [Rx Confirmed (units unknown) (unknown) (unknown) (no date) (unknown) (unknown) liothyronine 5 mcg tablet (Cytomel) 10 mcg PO DAILY #180 tabs 12/20/22 [Rx (units unknown) (unknown) (unknown) (no date) (unknown) (unknown) losartan 100 m g daily.? We will continue to focus on optimizing blood pressure, (units unknown) (unknown) (unknown) (no date) (unknown) (unknown) losartan 100 m g tablet 100 mg PO DAILY #90 tabs 12/20/22 [Rx Confirmed 02/04/23] (units unknown) (unknown) (unknown) (no date) (unknown) (unknown) may occur. Occasional wrong-word or 'sound-alike' substitutions may have (units unknown) (unknown) (unknown) (no date) (unknown) (unknown) metformin 1,00 0 mg tablet 1,000 mg PO BID #180 tabs 09/01/22 [Rx Confirmed (units unknown) (unknown) (unknown) (no date) (unknown) (unknown) methenamine an d vitamin-C, followed by recommendation for suppressive (units unknown) (unknown) (unknown) (no date) (unknown) (unknown) metoprolol suc cinate 50 mg tablet,extended release 24 hr (Toprol XL) 50 mg PO (units unknown) (unknown) (unknown) (no date) (unknown) (unknown) months followe d by a visit. (units unknown) (unknown) (unknown) (no date) (unknown) (unknown) negative resul ts.? However, her pain persists.? She feels that the color of the (units unknown) (unknown) (unknown) (no date) (unknown) (unknown) nifedipine 30 mg tablet,extended release 24 hr 30 mg PO DAILY #90 tabs 12/16/22 (units unknown) (unknown) (unknown) (no date) (unknown) (unknown) occurred due t o the inherent limitations of voice recognition software. Please (units unknown) (unknown) (unknown) (no date) (unknown) (unknown) on 02-03-23 and was 7.4. (units unknown) (unknown) (unknown) (no date) (unknown) (unknown) order to try t o determine which are true allergies. Also was referred to (units unknown) (unknown) (unknown) (no date) (unknown) (unknown) previous level s.? Given her age this level as not excessively elevated although (units unknown) (unknown) (unknown) (no date) (unknown) (unknown) rash on the si de of the knee later that day. (units unknown) (unknown) (unknown) (no date) (unknown) (unknown) read the note carefully and recognize, using context, where these substitutions (units unknown) (unknown) (unknown) (no date) (unknown) (unknown) senior workout s to help with balance (units unknown) (unknown) (unknown) (no date) (unknown) (unknown) sitagliptin phosphate 100 mg tablet 100 mg PO DAILY #90 tabs 12/20/22 [Rx (units unknown) (unknown) (unknown) (no date) (unknown) (unknown) software. Alth ough every effort is made to edit content, concrete tester errors (units unknown) (unknown) (unknown) (no date) (unknown) (unknown) tetracycline A dverse Reaction (Unknown, Verified 02/04/23 11:52) (units unknown) (unknown) (unknown) (no date) (unknown) (unknown) the nipple or other skin changes of the breast. (units unknown) (unknown) (unknown) (no date) (unknown) (unknown) took Augmentin while in the office which she seemed to tolerate well but after (units unknown) (unknown) (unknown) (no date) (unknown) (unknown) with antibioti cs; we received their note from November 27 in which patient (units unknown) (unknown) (unknown) (no date) (unknown) (unknown) with ciproflox acin at the last visit and had a delayed development of a fixed (units unknown) (unknown) (unknown) (no date) (unknown) (unknown) with meals the n if this did not work and if normal creatinine consider (units unknown) (unknown) (unknown) (no date) (unknown) (unknown) would be optim al to get this a bit lower.? We will continue current regimen and (units unknown) (unknown) Result panel 12 (unknown) (no date) (unknown) (unknown) (no value) (units unknown) (unknown) (unknown) (no date) (unknown) (unknown) (1) Microalbuminuria: (units unknown) (unknown) (unknown) (no date) (unknown) (unknown) 02/04/23 (units unknown) (unknown) (unknown) (no date) (unknown) (unknown) 02/04/23] (units unknown) (unknown) (unknown) (no date) (unknown) (unknown) 08/09/21 [Hist ory Confirmed 02/04/23] (units unknown) (unknown) (unknown) (no date) (unknown) (unknown) 11:52) (units unknown) (unknown) (unknown) (no date) (unknown) (unknown) 12:00 (units unknown) (unknown) (unknown) (no date) (unknown) (unknown) 135/70. (units unknown) (unknown) (unknown) (no date) (unknown) (unknown) 82 Y/O Female presents today for a Diabetes follow up. Her last A1C was tested (units unknown) (unknown) (unknown) (no date) (unknown) (unknown) 82-year-old fe male presents for visit to follow-up on chronic conditions (units unknown) (unknown) (unknown) (no date) (unknown) (unknown) Age/Sex: 82 / F Date of Service: (units unknown) (unknown) (unknown) (no date) (unknown) (unknown) Allergies (units unknown) (unknown) (unknown) (no date) (unknown) (unknown) Allergy to mul tiple antibiotics (units unknown) (unknown) (unknown) (no date) (unknown) (unknown) ENEIDA Brown [id number] (units unknown) (unknown) (unknown) (no date) (unknown) (unknown) Anesthesia (units unknown) (unknown) (unknown) (no date) (unknown) (unknown) Assessment + Plan (u nits unknown) (unknown) (unknown) (no date) (unknown) (unknown) Attending Dr: Franklin Rizzo FREIGHT UNLOADER (units unknown) (unknown) (unknown) (no date) (unknown) (unknown) BP 140/70 (units unknown) (unknown) (unknown) (no date) (unknown) (unknown) Blood Pressure Location Lt brachial (units unknown) (unknown) (unknown) (no date) (unknown) (unknown) CODEINE Allerg y (Severe, Uncoded 02/04/23 11:52) (units unknown) (unknown) (unknown) (no date) (unknown) (unknown) Carpal tunnel syndrome (-1976) (units unknown) (unknown) (unknown) (no date) (unknown) (unknown) Chicken pox (-1949) (units unknown) (unknown) (unknown) (no date) (unknown) (unknown) Chief Complaint (uni ts unknown) (unknown) (unknown) (no date) (unknown) (unknown) Chief Complain t: Follow-up diabetes/chronic conditions/labs/medi cations (units unknown) (unknown) (unknown) (no date) (unknown) (unknown) Confirmed 02/04/23] (units unknown) (unknown) (unknown) (no date) (unknown) (unknown) Coronary arter y disease (units unknown) (unknown) (unknown) (no date) (unknown) (unknown) DAILY #90 tabs 01/20/22 [Rx Confirmed 02/04/23] (units unknown) (unknown) (unknown) (no date) (unknown) (unknown) : 0 Acct:[id number] (units unknown) (unknown) (unknown) (no date) (unknown) (unknown) Dept at . (units unknown) (unknown) (unknown) (no date) (unknown) (unknown) Details: (units unknown) (unknown) (unknown) (no date) (unknown) (unknown) Diabetes melli tus type 2: Hemoglobin A1c is 7.5% which has increased from (units unknown) (unknown) (unknown) (no date) (unknown) (unknown) Diabetic neuropathy (units unknown) (unknown) (unknown) (no date) (unknown) (unknown) Documented By: Franklin Rizzo 02/04/23 1150 (units unknown) (unknown) (unknown) (no date) (unknown) (unknown) Draft (units unknown) (unknown) (unknown) (no date) (unknown) (unknown) Dupuytren's contracture (units unknown) (unknown) (unknown) (no date) (unknown) (unknown) Dyslipidemia (units unknown) (unknown) (unknown) (no date) (unknown) (unknown) Dyslipidemia:? Low LDL, also slightly low HDL.? Overall calculated non HDL is (units unknown) (unknown) (unknown) (no date) (unknown) (unknown) Essential hypertension (units unknown) (unknown) (unknown) (no date) (unknown) (unknown) FLUCONAZOLE Al lergy (Severe, Uncoded 02/04/23 11:52) (units unknown) (unknown) (unknown) (no date) (unknown) (unknown) Family History (units unknown) (unknown) (unknown) (no date) (unknown) (unknown) Family Practic e Office Visit (units unknown) (unknown) (unknown) (no date) (unknown) (unknown) Father Murder (units unknown) (unknown) (unknown) (no date) (unknown) (unknown) [facility] (units unknown) (unknown) (unknown) (no date) (unknown) (unknown) Foot pain (units unknown) (unknown) (unknown) (no date) (unknown) (unknown) Fractures (units unknown) (unknown) (unknown) (no date) (unknown) (unknown) From CIPRO All ergy (Severe, Uncoded 02/04/23 11:52) (units unknown) (unknown) (unknown) (no date) (unknown) (unknown) HPI (units unknown) (unknown) (unknown) (no date) (unknown) (unknown) HYDROCODONE Al lergy (Severe, Uncoded 02/04/23 11:52) (units unknown) (unknown) (unknown) (no date) (unknown) (unknown) Height 149.86 cm (un its unknown) (unknown) (unknown) (no date) (unknown) (unknown) Hemoglobin A1C % w Est Avg Glu 6 Months E11.40 - Type 2 diabetes mellitus with (units unknown) (unknown) (unknown) (no date) (unknown) (unknown) History of abdominoplasty (units unknown) (unknown) (unknown) (no date) (unknown) (unknown) History of casandra k surgery (-2019) (units unknown) (unknown) (unknown) (no date) (unknown) (unknown) History of car pal tunnel release (units unknown) (unknown) (unknown) (no date) (unknown) (unknown) History of tob acco use (units unknown) (unknown) (unknown) (no date) (unknown) (unknown) Hives (units unknown) (unknown) (unknown) (no date) (unknown) (unknown) Hypothyroidism (-1998) (units unknown) (unknown) (unknown) (no date) (unknown) (unknown) Infectious Dis ease by Urology. Infectious Disease recommended D mannose t.i.d. (units unknown) (unknown) (unknown) (no date) (unknown) (unknown) Intake Note: (units unknown) (unknown) (unknown) (no date) (unknown) (unknown) Intake perform ed by: Quiana Camarillo (units unknown) (unknown) (unknown) (no date) (unknown) (unknown) Intake (units unknown) (unknown) (unknown) (no date) (unknown) (unknown) Intake- Magno al Staff (units unknown) (unknown) (unknown) (no date) (unknown) (unknown) Last Menstural Cycle + Details (units unknown) (unknown) (unknown) (no date) (unknown) (unknown) Loc: [facility] (units unknown) (unknown) (unknown) (no date) (unknown) (unknown) Measles (-1955) (uni ts unknown) (unknown) (unknown) (no date) (unknown) (unknown) Medical Histor y (Updated 02/04/23 @ 12:55 by MELANY Morataya) (units unknown) (unknown) (unknown) (no date) (unknown) (unknown) Medications (units unknown) (unknown) (unknown) (no date) (unknown) (unknown) Microalbumin C reat Ratio Urine 6 Months E11.40 - Type 2 diabetes mellitus with (units unknown) (unknown) (unknown) (no date) (unknown) (unknown) Microalbuminur ia:? Worsened compared to previous.? Patient is already on (units unknown) (unknown) (unknown) (no date) (unknown) (unknown) Mother d Brain tumor (units unknown) (unknown) (unknown) (no date) (unknown) (unknown) NITROFURANTOIN Allergy (Severe, Uncoded 02/04/23 11:52) (units unknown) (unknown) (unknown) (no date) (unknown) (unknown) NO exam today. did not want to address neuropathy, just commenting. (units unknown) (unknown) (unknown) (no date) (unknown) (unknown) September 01 022 she had diagnostic mammogram and ultrasound performed with (units unknown) (unknown) (unknown) (no date) (unknown) (unknown) Orders (units unknown) (unknown) (unknown) (no date) (unknown) (unknown) Orders: (units unknown) (unknown) (unknown) (no date) (unknown) (unknown) Osteoporosis (units unknown) (unknown) (unknown) (no date) (unknown) (unknown) Other Menstrua l Period: Postmenopausal (units unknown) (unknown) (unknown) (no date) (unknown) (unknown) Oxygen Deliver y Method room air (units unknown) (unknown) (unknown) (no date) (unknown) (unknown) PFSH (units unknown) (unknown) (unknown) (no date) (unknown) (unknown) POLLEN Allergy (Unknown, Uncoded 02/04/23 11:52) (units unknown) (unknown) (unknown) (no date) (unknown) (unknown) Parkinson's disease (units unknown) (unknown) (unknown) (no date) (unknown) (unknown) Patient states that when she checks her blood pressure at home it has been about (units unknown) (unknown) (unknown) (no date) (unknown) (unknown) Patient: Quiana Santiago (units unknown) (unknown) (unknown) (no date) (unknown) (unknown) Polio (-1943) (units unknown) (unknown) (unknown) (no date) (unknown) (unknown) Position Sitting (un its unknown) (unknown) (unknown) (no date) (unknown) (unknown) Pulse 56 L (units unknown) (unknown) (unknown) (no date) (unknown) (unknown) Pulse Oximetry (%) 97 (units unknown) (unknown) (unknown) (no date) (unknown) (unknown) Pulse Source Monitor (units unknown) (unknown) (unknown) (no date) (unknown) (unknown) R#: [id number] (unit s unknown) (unknown) (unknown) (no date) (unknown) (unknown) RASH (units unknown) (unknown) (unknown) (no date) (unknown) (unknown) Reason For Visit (un its unknown) (unknown) (unknown) (no date) (unknown) (unknown) Rectal bleeding (uni ts unknown) (unknown) (unknown) (no date) (unknown) (unknown) Recurrent UTI (units unknown) (unknown) (unknown) (no date) (unknown) (unknown) Reflux, vesicoureteral (units unknown) (unknown) (unknown) (no date) (unknown) (unknown) STOMACH CRAMPS , 'I CHOKE UP' (units unknown) (unknown) (unknown) (no date) (unknown) (unknown) STOMACH CRAMPS , 'I CRAMP UP' (units unknown) (unknown) (unknown) (no date) (unknown) (unknown) STOMACH CRAMPS, RASH (units unknown) (unknown) (unknown) (no date) (unknown) (unknown) SULFA Allergy (Severe, Uncoded 02/04/23 11:52) (units unknown) (unknown) (unknown) (no date) (unknown) (unknown) She is continu ing to see Urology for recurrent UTI and was also seen by (units unknown) (unknown) (unknown) (no date) (unknown) (unknown) Signed By: (units unknown) (unknown) (unknown) (no date) (unknown) (unknown) Sister d Substance abuse (units unknown) (unknown) (unknown) (no date) (unknown) (unknown) Smoking Status : Former smoker (units unknown) (unknown) (unknown) (no date) (unknown) (unknown) Surgical Histo ry (units unknown) (unknown) (unknown) (no date) (unknown) (unknown) THROAT SWELLIN G, HIVES, 'I CAN'T BREATHE' (units unknown) (unknown) (unknown) (no date) (unknown) (unknown) This note may have been all or partially generated using voice recognition (units unknown) (unknown) (unknown) (no date) (unknown) (unknown) Tobacco + Subs tance Use (units unknown) (unknown) (unknown) (no date) (unknown) (unknown) Tobacco Status (unit s unknown) (unknown) (unknown) (no date) (unknown) (unknown) Today patient is concerned that she still has pain in the left breast.? On (units unknown) (unknown) (unknown) (no date) (unknown) (unknown) Type 2 diabete s mellitus without complication (-1969) (units unknown) (unknown) (unknown) (no date) (unknown) (unknown) Type 2 diabete s, controlled, with neuropathy (units unknown) (unknown) (unknown) (no date) (unknown) (unknown) Unknown (units unknown) (unknown) (unknown) (no date) (unknown) (unknown) Urge incontinence (u nits unknown) (unknown) (unknown) (no date) (unknown) (unknown) Vaginal itching (uni ts unknown) (unknown) (unknown) (no date) (unknown) (unknown) Visit Reasons: f/u Diabetic check review medication (units unknown) (unknown) (unknown) (no date) (unknown) (unknown) Vitals (units unknown) (unknown) (unknown) (no date) (unknown) (unknown) [Rx Confirmed 02/04/23] (units unknown) (unknown) (unknown) (no date) (unknown) (unknown) advised patien t work hard on diet/exercise measures.? 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 Smoking Tobacco Cutter Operator has been working with her to challenge (units unknown) (unknown) (unknown) (no date) (unknown) (unknown) aspirin 81 mg tablet,delayed release (Adult Aspirin Regimen) 81 mg PO DAILY (units unknown) (unknown) (unknown) (no date) (unknown) (unknown) atorvastatin 4 0 mg tablet 40 mg PO BEDTIME #90 tabs 12/20/22 [Rx Confirmed (units unknown) (unknown) (unknown) (no date) (unknown) (unknown) bp at home 135/70s. (units unknown) (unknown) (unknown) (no date) (unknown) (unknown) cardiology marcelino seno in [place]. (units unknown) (unknown) (unknown) (no date) (unknown) (unknown) cephalexin Adv erse Reaction (Unknown, Verified 02/04/23 11:52) (units unknown) (unknown) (unknown) (no date) (unknown) (unknown) clavulanic aci d [From Augmentin] Adverse Reaction (Unknown, Verified 02/04/23 (units unknown) (unknown) (unknown) (no date) (unknown) (unknown) clindamycin Ad verse Reaction (Unknown, Verified 02/04/23 11:52) (units unknown) (unknown) (unknown) (no date) (unknown) (unknown) clotrimazole 1 % topical cream 1 applic topical 02/04/23 [History Confirmed (units unknown) (unknown) (unknown) (no date) (unknown) (unknown) diabetic neuro kusum, unspecified, R80.9 - Proteinuria, unspecified (units unknown) (unknown) (unknown) (no date) (unknown) (unknown) favorable.? Co ntinue regimen.? (units unknown) (unknown) (unknown) (no date) (unknown) (unknown) furosemide 20 mg tablet (Lasix) 20 mg PO BID PRN edema #180 tabs 12/20/22 [Rx (units unknown) (unknown) (unknown) (no date) (unknown) (unknown) getting home c alled to report vomiting and diarrhea. She had been challenged (units unknown) (unknown) (unknown) (no date) (unknown) (unknown) glycemic contr ol, lipid profile.? Recheck in 6 months. (units unknown) (unknown) (unknown) (no date) (unknown) (unknown) got labs drawn too early got a call about it. (units unknown) (unknown) (unknown) (no date) (unknown) (unknown) have occurred. If there are any questions, please contact the Medical Records (units unknown) (unknown) (unknown) (no date) (unknown) (unknown) ibuprofen Adve rse Reaction (Intermediate, Verified 02/04/23 11:52) (units unknown) (unknown) (unknown) (no date) (unknown) (unknown) including diab etes mellitus type 2, lab work, med review. (units unknown) (unknown) (unknown) (no date) (unknown) (unknown) left nipple enamorado s changed slightly.? No palpable lumps noted.? No discharge from (units unknown) (unknown) (unknown) (no date) (unknown) (unknown) levofloxacin [ From Levaquin] Allergy (Intermediate, Verified 02/04/23 11:52) (units unknown) (unknown) (unknown) (no date) (unknown) (unknown) levothyroxine 137 mcg tablet 137 mcg PO DAILY #90 tabs 12/20/22 [Rx Confirmed (units unknown) (unknown) (unknown) (no date) (unknown) (unknown) liothyronine 5 mcg tablet (Cytomel) 10 mcg PO DAILY #180 tabs 12/20/22 [Rx (units unknown) (unknown) (unknown) (no date) (unknown) (unknown) losartan 100 m g daily.? We will continue to focus on optimizing blood pressure, (units unknown) (unknown) (unknown) (no date) (unknown) (unknown) losartan 100 m g tablet 100 mg PO DAILY #90 tabs 12/20/22 [Rx Confirmed 02/04/23] (units unknown) (unknown) (unknown) (no date) (unknown) (unknown) may occur. Occasional wrong-word or 'sound-alike' substitutions may have (units unknown) (unknown) (unknown) (no date) (unknown) (unknown) metformin 1,00 0 mg tablet 1,000 mg PO BID #180 tabs 09/01/22 [Rx Confirmed (units unknown) (unknown) (unknown) (no date) (unknown) (unknown) methenamine an d vitamin-C, followed by recommendation for suppressive (units unknown) (unknown) (unknown) (no date) (unknown) (unknown) metoprolol suc cinate 50 mg tablet,extended release 24 hr (Toprol XL) 50 mg PO (units unknown) (unknown) (unknown) (no date) (unknown) (unknown) months followe d by a visit. (units unknown) (unknown) (unknown) (no date) (unknown) (unknown) negative resul ts.? However, her pain persists.? She feels that the color of the (units unknown) (unknown) (unknown) (no date) (unknown) (unknown) nifedipine 30 mg tablet,extended release 24 hr 30 mg PO DAILY #90 tabs 12/16/22 (units unknown) (unknown) (unknown) (no date) (unknown) (unknown) no fruther act ion needed for breast pain. (units unknown) (unknown) (unknown) (no date) (unknown) (unknown) occurred due t o the inherent limitations of voice recognition software. Please (units unknown) (unknown) (unknown) (no date) (unknown) (unknown) on 02-03-23 and was 7.4. (units unknown) (unknown) (unknown) (no date) (unknown) (unknown) order to try t o determine which are true allergies. Also was referred to (units unknown) (unknown) (unknown) (no date) (unknown) (unknown) previous level s.? Given her age this level as not excessively elevated although (units unknown) (unknown) (unknown) (no date) (unknown) (unknown) rash on the si de of the knee later that day. (units unknown) (unknown) (unknown) (no date) (unknown) (unknown) read the note carefully and recognize, using context, where these substitutions (units unknown) (unknown) (unknown) (no date) (unknown) (unknown) senior workout s to help with balance (units unknown) (unknown) (unknown) (no date) (unknown) (unknown) sitagliptin phosphate 100 mg tablet 100 mg PO DAILY #90 tabs 12/20/22 [Rx (units unknown) (unknown) (unknown) (no date) (unknown) (unknown) software. Alth ough every effort is made to edit content, concrete tester errors (units unknown) (unknown) (unknown) (no date) (unknown) (unknown) tetracycline A dverse Reaction (Unknown, Verified 02/04/23 11:52) (units unknown) (unknown) (unknown) (no date) (unknown) (unknown) the nipple or other skin changes of the breast. (units unknown) (unknown) (unknown) (no date) (unknown) (unknown) took Augmentin while in the office which she seemed to tolerate well but after (units unknown) (unknown) (unknown) (no date) (unknown) (unknown) with antibioti cs; we received their note from November 27 in which patient (units unknown) (unknown) (unknown) (no date) (unknown) (unknown) with ciproflox acin at the last visit and had a delayed development of a fixed (units unknown) (unknown) (unknown) (no date) (unknown) (unknown) with meals the n if this did not work and if normal creatinine consider (units unknown) (unknown) (unknown) (no date) (unknown) (unknown) would be optim al to get this a bit lower.? 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 complication: (units unknown) (unknown) (unknown) (no date) (unknown) (unknown) (2) Microalbuminuria: (units unknown) (unknown) (unknown) (no date) (unknown) (unknown) (3) Essential hypertension: (units unknown) (unknown) (unknown) (no date) (unknown) (unknown) (4) Coronary a rtery disease: (units unknown) (unknown) (unknown) (no date) (unknown) (unknown) 02/04/23 (units unknown) (unknown) (unknown) (no date) (unknown) (unknown) 02/04/23] (units unknown) (unknown) (unknown) (no date) (unknown) (unknown) 08/09/21 [Hist ory Confirmed 02/04/23] (units unknown) (unknown) (unknown) (no date) (unknown) (unknown) 11:52) (units unknown) (unknown) (unknown) (no date) (unknown) (unknown) 12:00 (units unknown) (unknown) (unknown) (no date) (unknown) (unknown) 82 Y/O Female presents today for a Diabetes follow up. Her last A1C was tested (units unknown) (unknown) (unknown) (no date) (unknown) (unknown) 82-year-old fe male presents for a visit which was planned to follow-up on blood (units unknown) (unknown) (unknown) (no date) (unknown) (unknown) Affect: normal affect (units unknown) (unknown) (unknown) (no date) (unknown) (unknown) Age/Sex: 82 / F Date of Service: (units unknown) (unknown) (unknown) (no date) (unknown) (unknown) All systems re viewed + are unremarkable except as noted in HPI and below (units unknown) (unknown) (unknown) (no date) (unknown) (unknown) Allergies (units unknown) (unknown) (unknown) (no date) (unknown) (unknown) Allergy to mul tiple antibiotics (units unknown) (unknown) (unknown) (no date) (unknown) (unknown) [place] [id number] (units unknown) (unknown) (unknown) (no date) (unknown) (unknown) Anesthesia (units unknown) (unknown) (unknown) (no date) (unknown) (unknown) Appearance: gr ossly normal (units unknown) (unknown) (unknown) (no date) (unknown) (unknown) Assessment + Plan (u nits unknown) (unknown) (unknown) (no date) (unknown) (unknown) Attending Dr: Franklin MOSLEY (units unknown) (unknown) (unknown) (no date) (unknown) (unknown) Attitude: cooperative (units unknown) (unknown) (unknown) (no date) (unknown) (unknown) BP 140/70 (units unknown) (unknown) (unknown) (no date) (unknown) (unknown) Blood Pressure Location Lt brachial (units unknown) (unknown) (unknown) (no date) (unknown) (unknown) CODEINE Allerg y (Severe, Uncoded 02/04/23 11:52) (units unknown) (unknown) (unknown) (no date) (unknown) (unknown) Cardio (units unknown) (unknown) (unknown) (no date) (unknown) (unknown) Carpal tunnel syndrome (-1976) (units unknown) (unknown) (unknown) (no date) (unknown) (unknown) Chicken pox (-1949) (units unknown) (unknown) (unknown) (no date) (unknown) (unknown) Chief Complaint (uni ts unknown) (unknown) (unknown) (no date) (unknown) (unknown) Chief Complain t: Follow-up diabetes/chronic conditions/labs/medi cations (units unknown) (unknown) (unknown) (no date) (unknown) (unknown) Cognition: nor mal cognition (units unknown) (unknown) (unknown) (no date) (unknown) (unknown) Confirmed 02/04/23] (units unknown) (unknown) (unknown) (no date) (unknown) (unknown) Const (units unknown) (unknown) (unknown) (no date) (unknown) (unknown) Coronary Disease-Associated Artery/Lesion type: [place] artery [place] (units unknown) (unknown) (unknown) (no date) (unknown) (unknown) Coronary arter y disease (units unknown) (unknown) (unknown) (no date) (unknown) (unknown) DAILY #90 tabs 01/20/22 [Rx Confirmed 02/04/23] (units unknown) (unknown) (unknown) (no date) (unknown) (unknown) : 0 Acct:[id number] (units unknown) (unknown) (unknown) (no date) (unknown) (unknown) Dept at . (units unknown) (unknown) (unknown) (no date) (unknown) (unknown) Details: (units unknown) (unknown) (unknown) (no date) (unknown) (unknown) Diabetes [facility] snf insulin use: without snf use (units unknown) (unknown) (unknown) (no date) (unknown) (unknown) Diabetes [facility] type 2: Hemoglobin A1c is 7.5% which has increased from (units unknown) (unknown) (unknown) (no date) (unknown) (unknown) Diabetes melli tus type 2: (units unknown) (unknown) (unknown) (no date) (unknown) (unknown) Diabetic neuropathy (units unknown) (unknown) (unknown) (no date) (unknown) (unknown) Documented By: Franklin Rizzo 02/04/23 1150 (units unknown) (unknown) (unknown) (no date) (unknown) (unknown) Draft (units unknown) (unknown) (unknown) (no date) (unknown) (unknown) Dupuytren's contracture (units unknown) (unknown) (unknown) (no date) (unknown) (unknown) Dyslipidemia (units unknown) (unknown) (unknown) (no date) (unknown) (unknown) Dyslipidemia: Low LDL, also slightly low HDL. Overall calculated non HDL is (units unknown) (unknown) (unknown) (no date) (unknown) (unknown) Effort + Inspe ction: normal respiratory effort (units unknown) (unknown) (unknown) (no date) (unknown) (unknown) Essential hypertension (units unknown) (unknown) (unknown) (no date) (unknown) (unknown) Exam (units unknown) (unknown) (unknown) (no date) (unknown) (unknown) Eyes (units unknown) (unknown) (unknown) (no date) (unknown) (unknown) FLUCONAZOLE Al lergy (Severe, Uncoded 02/04/23 11:52) (units unknown) (unknown) (unknown) (no date) (unknown) (unknown) Family History (units unknown) (unknown) (unknown) (no date) (unknown) (unknown) Family Practic e Office Visit (units unknown) (unknown) (unknown) (no date) (unknown) (unknown) Father Murder (units unknown) (unknown) (unknown) (no date) (unknown) (unknown) [facility] (units unknown) (unknown) (unknown) (no date) (unknown) (unknown) Foot pain (units unknown) (unknown) (unknown) (no date) (unknown) (unknown) Fractures (units unknown) (unknown) (unknown) (no date) (unknown) (unknown) From CIPRO All ergy (Severe, Uncoded 02/04/23 11:52) (units unknown) (unknown) (unknown) (no date) (unknown) (unknown) Gait: normal gait (u nits unknown) (unknown) (unknown) (no date) (unknown) (unknown) General: appea [place] normal, both eyes and all related structures (units unknown) (unknown) (unknown) (no date) (unknown) (unknown) General: coope rative and no acute distress (units unknown) (unknown) (unknown) (no date) (unknown) (unknown) General: no ra shes or lesions noted (units unknown) (unknown) (unknown) (no date) (unknown) (unknown) General: patie nt alert, patient awake and patient oriented x3 (units unknown) (unknown) (unknown) (no date) (unknown) (unknown) HENMT (units unknown) (unknown) (unknown) (no date) (unknown) (unknown) HPI (units unknown) (unknown) (unknown) (no date) (unknown) (unknown) HYDROCODONE Al lergy (Severe, Uncoded 02/04/23 11:52) (units unknown) (unknown) (unknown) (no date) (unknown) (unknown) Head: normal t o inspection (units unknown) (unknown) (unknown) (no date) (unknown) (unknown) Height 149.86 cm (un its unknown) (unknown) (unknown) (no date) (unknown) (unknown) Hemoglobin A1C % w Est Avg Glu 6 Months E11.40 - Type 2 diabetes mellitus with (units unknown) (unknown) (unknown) (no date) (unknown) (unknown) History of abdominoplasty (units unknown) (unknown) (unknown) (no date) (unknown) (unknown) History of casandra k surgery (-2018) (units unknown) (unknown) (unknown) (no date) (unknown) (unknown) History of car pal tunnel release (units unknown) (unknown) (unknown) (no date) (unknown) (unknown) History of tob acco use (units unknown) (unknown) (unknown) (no date) (unknown) (unknown) Hives (units unknown) (unknown) (unknown) (no date) (unknown) (unknown) Hypertension: Inadequately controlled. Patient is overdue to follow-up with (units unknown) (unknown) (unknown) (no date) (unknown) (unknown) Hypothyroidism (-1998) (units unknown) (unknown) (unknown) (no date) (unknown) (unknown) Hypothyroidism : TSH normal. Continue regimen. (units unknown) (unknown) (unknown) (no date) (unknown) (unknown) Intake Note: (units unknown) (unknown) (unknown) (no date) (unknown) (unknown) Intake perform ed by: Quiana Camarillo (units unknown) (unknown) (unknown) (no date) (unknown) (unknown) Intake (units unknown) (unknown) (unknown) (no date) (unknown) (unknown) Intake- Magno gutierrez Staff (units unknown) (unknown) (unknown) (no date) (unknown) (unknown) Lab work other nina unremarkable. Outside of above, Next annual diabetes full (units unknown) (unknown) (unknown) (no date) (unknown) (unknown) Last Menstural Cycle + Details (units unknown) (unknown) (unknown) (no date) (unknown) (unknown) Left breast pa in: Repeat exam today in clinic did not reveal any concerning (units unknown) (unknown) (unknown) (no date) (unknown) (unknown) Loc: [facility] (units unknown) (unknown) (unknown) (no date) (unknown) (unknown) [place] (-1955) (uni ts unknown) (unknown) (unknown) (no date) (unknown) (unknown) Medical Histor y (units unknown) (unknown) (unknown) (no date) (unknown) (unknown) Medications (units unknown) (unknown) (unknown) (no date) (unknown) (unknown) Mental Status: mental status grossly normal (units unknown) (unknown) (unknown) (no date) (unknown) (unknown) Microalbumin C reat Ratio Urine 6 Months E11.40 - Type 2 diabetes mellitus with (units unknown) (unknown) (unknown) (no date) (unknown) (unknown) Microalbuminur ia: Worsened compared to previous. Patient is already on (units unknown) (unknown) (unknown) (no date) (unknown) (unknown) Mood: congruent mood (units unknown) (unknown) (unknown) (no date) (unknown) (unknown) Mother d Brain tumor (units unknown) (unknown) (unknown) (no date) (unknown) (unknown) NITROFURANTOIN Allergy (Severe, Uncoded 02/04/23 11:52) (units unknown) (unknown) (unknown) (no date) (unknown) (unknown) NO exam today. did not want to address neuropathy, just commenting. (units unknown) (unknown) (unknown) (no date) (unknown) (unknown) Neuro (units unknown) (unknown) (unknown) (no date) (unknown) (unknown) Orders (units unknown) (unknown) (unknown) (no date) (unknown) (unknown) Orders: (units unknown) (unknown) (unknown) (no date) (unknown) (unknown) Osteoporosis (units unknown) (unknown) (unknown) (no date) (unknown) (unknown) Osteoporosis: Patient had DEXA scan done July 31, 2022 which showed (units unknown) (unknown) (unknown) (no date) (unknown) (unknown) Other Menstrua l Period: Postmenopausal (units unknown) (unknown) (unknown) (no date) (unknown) (unknown) Oxygen Deliver y Method room air (units unknown) (unknown) (unknown) (no date) (unknown) (unknown) PFSH (units unknown) (unknown) (unknown) (no date) (unknown) (unknown) POLLEN Allergy (Unknown, Uncoded 02/04/23 11:52) (units unknown) (unknown) (unknown) (no date) (unknown) (unknown) Parkinson's disease (units unknown) (unknown) (unknown) (no date) (unknown) (unknown) Patient contin ues to experience neuropathy symptoms but when I asked her if she (units unknown) (unknown) (unknown) (no date) (unknown) (unknown) Patient has be en checking her BP at home and levels have been 135 over 70s or (units unknown) (unknown) (unknown) (no date) (unknown) (unknown) Patient: Quiana Santiago (units unknown) (unknown) (unknown) (no date) (unknown) (unknown) Plan (units unknown) (unknown) (unknown) (no date) (unknown) (unknown) Polio (-1943) (units unknown) (unknown) (unknown) (no date) (unknown) (unknown) Position Sitting (un its unknown) (unknown) (unknown) (no date) (unknown) (unknown) Psych (units unknown) (unknown) (unknown) (no date) (unknown) (unknown) Pulse 56 L (units unknown) (unknown) (unknown) (no date) (unknown) (unknown) Pulse Oximetry (%) 97 (units unknown) (unknown) (unknown) (no date) (unknown) (unknown) Pulse Source Monitor (units unknown) (unknown) (unknown) (no date) (unknown) (unknown) Qualified Code (s): E11.9 - Type 2 diabetes mellitus without complications (units unknown) (unknown) (unknown) (no date) (unknown) (unknown) Qualified Code (s): I25.10 - Atherosclerotic heart disease of [place] coronary (units unknown) (unknown) (unknown) (no date) (unknown) (unknown) Qualifiers: (units unknown) (unknown) (unknown) (no date) (unknown) (unknown) R#: [id number] (unit s unknown) (unknown) (unknown) (no date) (unknown) (unknown) RASH (units unknown) (unknown) (unknown) (no date) (unknown) (unknown) ROS (units unknown) (unknown) (unknown) (no date) (unknown) (unknown) Rate: regular rate ( units unknown) (unknown) (unknown) (no date) (unknown) (unknown) Reason For Visit (un its unknown) (unknown) (unknown) (no date) (unknown) (unknown) Rectal bleeding (uni ts unknown) (unknown) (unknown) (no date) (unknown) (unknown) Recurrent UTI (units unknown) (unknown) (unknown) (no date) (unknown) (unknown) Recurrent UTI: Patient continues to follow-up with Dr. Gamboa. She is frustrated (units unknown) (unknown) (unknown) (no date) (unknown) (unknown) Reflux, vesicoureteral (units unknown) (unknown) (unknown) (no date) (unknown) (unknown) Resp (units unknown) (unknown) (unknown) (no date) (unknown) (unknown) STOMACH CRAMPS , 'I CHOKE UP' (units unknown) (unknown) (unknown) (no date) (unknown) (unknown) STOMACH CRAMPS , 'I CRAMP UP' (units unknown) (unknown) (unknown) (no date) (unknown) (unknown) STOMACH CRAMPS, RASH (units unknown) (unknown) (unknown) (no date) (unknown) (unknown) SULFA Allergy (Severe, Uncoded 02/04/23 11:52) (units unknown) (unknown) (unknown) (no date) (unknown) (unknown) She had some o ther concerns which we did not have time to address today but she (units unknown) (unknown) (unknown) (no date) (unknown) (unknown) Signed By: (units unknown) (unknown) (unknown) (no date) (unknown) (unknown) Sister d Substance abuse (units unknown) (unknown) (unknown) (no date) (unknown) (unknown) Skin (units unknown) (unknown) (unknown) (no date) (unknown) (unknown) Smoking Status : Former smoker (units unknown) (unknown) (unknown) (no date) (unknown) (unknown) Speech: speech normal (units unknown) (unknown) (unknown) (no date) (unknown) (unknown) Status: Acute (units unknown) (unknown) (unknown) (no date) (unknown) (unknown) Surgical Histo ry (units unknown) (unknown) (unknown) (no date) (unknown) (unknown) THROAT SWELLIN G, HIVES, 'I CAN'T BREATHE' (units unknown) (unknown) (unknown) (no date) (unknown) (unknown) TSH with refle x free T4, lipids, CMP, hemoglobin A1c, microalbumin/creatin ine (units unknown) (unknown) (unknown) (no date) (unknown) (unknown) This note may have been all or partially generated using voice recognition (units unknown) (unknown) (unknown) (no date) (unknown) (unknown) Thought Conten t: normal (units unknown) (unknown) (unknown) (no date) (unknown) (unknown) Thought Proces s: normal (units unknown) (unknown) (unknown) (no date) (unknown) (unknown) Tobacco + Subs tance Use (units unknown) (unknown) (unknown) (no date) (unknown) (unknown) Tobacco Status (unit s unknown) (unknown) (unknown) (no date) (unknown) (unknown) Type 2 diabete s mellitus without complication (-1969) (units unknown) (unknown) (unknown) (no date) (unknown) (unknown) Type 2 diabete s, controlled, with neuropathy (units unknown) (unknown) (unknown) (no date) (unknown) (unknown) Unknown (units unknown) (unknown) (unknown) (no date) (unknown) (unknown) Urge incontinence (u nits unknown) (unknown) (unknown) (no date) (unknown) (unknown) Vaginal itching (uni ts unknown) (unknown) (unknown) (no date) (unknown) (unknown) Visit Reasons: f/u Diabetic check review medication (units unknown) (unknown) (unknown) (no date) (unknown) (unknown) Vitals (units unknown) (unknown) (unknown) (no date) (unknown) (unknown) [Rx Confirmed 02/04/23] (units unknown) (unknown) (unknown) (no date) (unknown) (unknown) about 4 months . Continue regimen. Recheck DEXA scan 1 year from previous. (units unknown) (unknown) (unknown) (no date) (unknown) (unknown) advised patien t work hard on diet/exercise measures. Next hemoglobin A1c in 6 (units unknown) (unknown) (unknown) (no date) (unknown) (unknown) advised to get her hemoglobin A1c checked although this was sooner than planned; (units unknown) (unknown) (unknown) (no date) (unknown) (unknown) alendronate 70 mg tablet 70 mg PO QWEEK #12 tabs 07/22/22 [Rx Confirmed (units unknown) (unknown) (unknown) (no date) (unknown) (unknown) amoxicillin [F rom Augmentin] Adverse Reaction (Unknown, Verified 02/04/23 11:52) (units unknown) (unknown) (unknown) (no date) (unknown) (unknown) artery without angina pectoris (units unknown) (unknown) (unknown) (no date) (unknown) (unknown) aspirin 81 mg tablet,delayed release (Adult Aspirin Regimen) 81 mg PO DAILY (units unknown) (unknown) (unknown) (no date) (unknown) (unknown) atorvastatin 4 0 mg tablet 40 mg PO BEDTIME #90 tabs 12/20/22 [Rx Confirmed (units unknown) (unknown) (unknown) (no date) (unknown) (unknown) bp at home 135/70s. (units unknown) (unknown) (unknown) (no date) (unknown) (unknown) breast cancer and in addition is bothered by chronic pain which she states is in (units unknown) (unknown) (unknown) (no date) (unknown) (unknown) by lack of pro shweta and would like to see a different urologist, preferably a (units unknown) (unknown) (unknown) (no date) (unknown) (unknown) cardiology and I recommended she call to schedule a follow-up appointment. She (units unknown) (unknown) (unknown) (no date) (unknown) (unknown) cardiology marcelino adan in [place]. (units unknown) (unknown) (unknown) (no date) (unknown) (unknown) cephalexin Adv erse Reaction (Unknown, Verified 02/04/23 11:52) (units unknown) (unknown) (unknown) (no date) (unknown) (unknown) clavulanic aci d [From Augmentin] Adverse Reaction (Unknown, Verified 02/04/23 (units unknown) (unknown) (unknown) (no date) (unknown) (unknown) clindamycin Ad verse Reaction (Unknown, Verified 02/04/23 11:52) (units unknown) (unknown) (unknown) (no date) (unknown) (unknown) clotrimazole 1 % topical cream 1 applic topical 02/04/23 [History Confirmed (units unknown) (unknown) (unknown) (no date) (unknown) (unknown) diabetic neuro kusum, unspecified, R80.9 - Proteinuria, unspecified (units unknown) (unknown) (unknown) (no date) (unknown) (unknown) exam as approp riate, and follow-up on chronic conditions/medicatio n review (units unknown) (unknown) (unknown) (no date) (unknown) (unknown) favorable. Con tinue regimen. (units unknown) (unknown) (unknown) (no date) (unknown) (unknown) female urologi st. Will refer to Dr. Arita. (units unknown) (unknown) (unknown) (no date) (unknown) (unknown) findings. Alth ough she has noted the color of the nipple seems to have changed, (units unknown) (unknown) (unknown) (no date) (unknown) (unknown) for further evaluation. (units unknown) (unknown) (unknown) (no date) (unknown) (unknown) furosemide 20 mg tablet (Lasix) 20 mg PO BID PRN edema #180 tabs 12/20/22 [Rx (units unknown) (unknown) (unknown) (no date) (unknown) (unknown) glycemic contr ol, lipid profile. Recheck in 6 months. (units unknown) (unknown) (unknown) (no date) (unknown) (unknown) got labs drawn too early got a call about it. (units unknown) (unknown) (unknown) (no date) (unknown) (unknown) have occurred. If there are any questions, please contact the Medical Records (units unknown) (unknown) (unknown) (no date) (unknown) (unknown) her with resul ts. Patient has resumed alendronate after being off of this for (units unknown) (unknown) (unknown) (no date) (unknown) (unknown) ibuprofen Adve rse Reaction (Intermediate, Verified 02/04/23 11:52) (units unknown) (unknown) (unknown) (no date) (unknown) (unknown) is happy to wa it until our follow-up visit and discuss at that time. (units unknown) (unknown) (unknown) (no date) (unknown) (unknown) it appeared no rmal to me today. Patient is very worried about possibility of (units unknown) (unknown) (unknown) (no date) (unknown) (unknown) levofloxacin [ From Levaquin] Allergy (Intermediate, Verified 02/04/23 11:52) (units unknown) (unknown) (unknown) (no date) (unknown) (unknown) levothyroxine 137 mcg tablet 137 mcg PO DAILY #90 tabs 12/20/22 [Rx Confirmed (units unknown) (unknown) (unknown) (no date) (unknown) (unknown) liothyronine 5 mcg tablet (Cytomel) 10 mcg PO DAILY #180 tabs 12/20/22 [Rx (units unknown) (unknown) (unknown) (no date) (unknown) (unknown) losartan 100 m g daily. We will continue to focus on optimizing blood pressure, (units unknown) (unknown) (unknown) (no date) (unknown) (unknown) losartan 100 m g tablet 100 mg PO DAILY #90 tabs 12/20/22 [Rx Confirmed 02/04/23] (units unknown) (unknown) (unknown) (no date) (unknown) (unknown) may occur. Occasional wrong-word or 'sound-alike' substitutions may have (units unknown) (unknown) (unknown) (no date) (unknown) (unknown) measured were osteopenic only. AP spine not measured. We had already contacted (units unknown) (unknown) (unknown) (no date) (unknown) (unknown) metformin 1,00 0 mg tablet 1,000 mg PO BID #180 tabs 09/01/22 [Rx Confirmed (units unknown) (unknown) (unknown) (no date) (unknown) (unknown) metoprolol suc cinate 50 mg tablet,extended release 24 hr (Toprol XL) 50 mg PO (units unknown) (unknown) (unknown) (no date) (unknown) (unknown) months followe d by a visit. (units unknown) (unknown) (unknown) (no date) (unknown) (unknown) nifedipine 30 mg tablet,extended release 24 hr 30 mg PO DAILY #90 tabs 12/16/22 (units unknown) (unknown) (unknown) (no date) (unknown) (unknown) no fruther act ion needed for breast pain. (units unknown) (unknown) (unknown) (no date) (unknown) (unknown) occurred due t o the inherent limitations of voice recognition software. Please (units unknown) (unknown) (unknown) (no date) (unknown) (unknown) on 02-03-23 and was 7.4. (units unknown) (unknown) (unknown) (no date) (unknown) (unknown) osteoporosis l eft femoral neck with T-score of -2.7. Remainder of the areas (units unknown) (unknown) (unknown) (no date) (unknown) (unknown) pressure and medication adjustment. She was contacted by a staff member and (units unknown) (unknown) (unknown) (no date) (unknown) (unknown) previous level s. Given her age this level as not excessively elevated although (units unknown) (unknown) (unknown) (no date) (unknown) (unknown) ratio. Patient will schedule a visit for review of lab work, focused physical (units unknown) (unknown) (unknown) (no date) (unknown) (unknown) read the note carefully and recognize, using context, where these substitutions (units unknown) (unknown) (unknown) (no date) (unknown) (unknown) recently. She is doing senior workouts to help with her balance. (units unknown) (unknown) (unknown) (no date) (unknown) (unknown) senior workout s to help with balance (units unknown) (unknown) (unknown) (no date) (unknown) (unknown) set of lab wor k due in 1 year, fasting labs which will be: CBC with no diff, (units unknown) (unknown) (unknown) (no date) (unknown) (unknown) she did go ahe ad and get this checked. (units unknown) (unknown) (unknown) (no date) (unknown) (unknown) shortly after lab work is done. (units unknown) (unknown) (unknown) (no date) (unknown) (unknown) sitagliptin phosphate 100 mg tablet 100 mg PO DAILY #90 tabs 12/20/22 [Rx (units unknown) (unknown) (unknown) (no date) (unknown) (unknown) so. She has a visit scheduled with cardiology in March. (units unknown) (unknown) (unknown) (no date) (unknown) (unknown) software. Alth ough every effort is made to edit content, concrete tester errors (units unknown) (unknown) (unknown) (no date) (unknown) (unknown) tetracycline A dverse Reaction (Unknown, Verified 02/04/23 11:52) (units unknown) (unknown) (unknown) (no date) (unknown) (unknown) the area that biopsy had been performed in [place]. We agreed to refer her (units unknown) (unknown) (unknown) (no date) (unknown) (unknown) to our general surgeon Dr. Jones who has a special interest in breast health (units unknown) (unknown) (unknown) (no date) (unknown) (unknown) vs. transplant ed heart: [place] heart Associated angina: without angina (units unknown) (unknown) (unknown) (no date) (unknown) (unknown) was just comme nting on this. Does not feel this has necessarily worsened (units unknown) (unknown) (unknown) (no date) (unknown) (unknown) will add nifed joan ER. Follow-up with me in 4-6 weeks. (units unknown) (unknown) (unknown) (no date) (unknown) (unknown) will call us i f it turns out that she needs a new referral. In the meantime we (units unknown) (unknown) (unknown) (no date) (unknown) (unknown) would be optim al to get this a bit lower. 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: (units unknown) (unknown) (unknown) (no date) (unknown) (unknown) (2) Microalbuminuria: (units unknown) (unknown) (unknown) (no date) (unknown) (unknown) (3) Essential hypertension: (units unknown) (unknown) (unknown) (no date) (unknown) (unknown) (4) Coronary a rtery disease: (units unknown) (unknown) (unknown) (no date) (unknown) (unknown) 02/04/23 (units unknown) (unknown) (unknown) (no date) (unknown) (unknown) 02/04/23] (units unknown) (unknown) (unknown) (no date) (unknown) (unknown) 08/09/21 [Hist ory Confirmed 02/04/23] (units unknown) (unknown) (unknown) (no date) (unknown) (unknown) 11:52) (units unknown) (unknown) (unknown) (no date) (unknown) (unknown) 12:00 (units unknown) (unknown) (unknown) (no date) (unknown) (unknown) 82 Y/O Female presents today for a Diabetes follow up. Her last A1C was tested (units unknown) (unknown) (unknown) (no date) (unknown) (unknown) 82-year-old fe male presents for a visit which was planned to follow-up on blood (units unknown) (unknown) (unknown) (no date) (unknown) (unknown) Affect: normal affect (units unknown) (unknown) (unknown) (no date) (unknown) (unknown) Age/Sex: 82 / F Date of Service: (units unknown) (unknown) (unknown) (no date) (unknown) (unknown) All systems re viewed + are unremarkable except as noted in HPI and below (units unknown) (unknown) (unknown) (no date) (unknown) (unknown) Allergies (units unknown) (unknown) (unknown) (no date) (unknown) (unknown) Allergy to mul tiple antibiotics (units unknown) (unknown) (unknown) (no date) (unknown) (unknown) [place] [id number] (units unknown) (unknown) (unknown) (no date) (unknown) (unknown) Anesthesia (units unknown) (unknown) (unknown) (no date) (unknown) (unknown) Appearance: gr ossly normal (units unknown) (unknown) (unknown) (no date) (unknown) (unknown) Assessment + Plan (u nits unknown) (unknown) (unknown) (no date) (unknown) (unknown) Attending Dr: Franklin MOSLEY (units unknown) (unknown) (unknown) (no date) (unknown) (unknown) Attitude: cooperative (units unknown) (unknown) (unknown) (no date) (unknown) (unknown) BP 140/70 (units unknown) (unknown) (unknown) (no date) (unknown) (unknown) Blood Pressure Location Lt brachial (units unknown) (unknown) (unknown) (no date) (unknown) (unknown) CODEINE Allerg y (Severe, Uncoded 02/04/23 11:52) (units unknown) (unknown) (unknown) (no date) (unknown) (unknown) Cardio (units unknown) (unknown) (unknown) (no date) (unknown) (unknown) Carpal tunnel syndrome (-1976) (units unknown) (unknown) (unknown) (no date) (unknown) (unknown) Chicken pox (-1949) (units unknown) (unknown) (unknown) (no date) (unknown) (unknown) Chief Complaint (uni ts unknown) (unknown) (unknown) (no date) (unknown) (unknown) Chief Complain t: Follow-up diabetes/chronic conditions/labs/medi cations (units unknown) (unknown) (unknown) (no date) (unknown) (unknown) Cognition: nor mal cognition (units unknown) (unknown) (unknown) (no date) (unknown) (unknown) Confirmed 02/04/23] (units unknown) (unknown) (unknown) (no date) (unknown) (unknown) Const (units unknown) (unknown) (unknown) (no date) (unknown) (unknown) Continue curre nt regimen.? Repeat hemoglobin A1c and microalbumin/creatin ine (units unknown) (unknown) (unknown) (no date) (unknown) (unknown) Coronary Disease-Associated Artery/Lesion type: [place] artery [place] (units unknown) (unknown) (unknown) (no date) (unknown) (unknown) Coronary arter y disease (units unknown) (unknown) (unknown) (no date) (unknown) (unknown) DAILY #90 tabs 01/20/22 [Rx Confirmed 02/04/23] (units unknown) (unknown) (unknown) (no date) (unknown) (unknown) : 0 Acct:[id number] (units unknown) (unknown) (unknown) (no date) (unknown) (unknown) Dept at . (units unknown) (unknown) (unknown) (no date) (unknown) (unknown) Details: (units unknown) (unknown) (unknown) (no date) (unknown) (unknown) Diabetes harry hoyt intermission coordinator insulin use: without intermission coordinator use (units unknown) (unknown) (unknown) (no date) (unknown) (unknown) Diabetes harry herrmanns type 2: Hemoglobin A1c stable, 7.4%, appropriate for age.? (units unknown) (unknown) (unknown) (no date) (unknown) (unknown) Diabetic neuropathy (units unknown) (unknown) (unknown) (no date) (unknown) (unknown) Documented By: Franklin Rizzo 02/04/23 1150 (units unknown) (unknown) (unknown) (no date) (unknown) (unknown) Draft (units unknown) (unknown) (unknown) (no date) (unknown) (unknown) Dupuytren's contracture (units unknown) (unknown) (unknown) (no date) (unknown) (unknown) Dyslipidemia (units unknown) (unknown) (unknown) (no date) (unknown) (unknown) Effort + Inspe ction: normal respiratory effort (units unknown) (unknown) (unknown) (no date) (unknown) (unknown) Essential hypertension (units unknown) (unknown) (unknown) (no date) (unknown) (unknown) Exam (units unknown) (unknown) (unknown) (no date) (unknown) (unknown) Eyes (units unknown) (unknown) (unknown) (no date) (unknown) (unknown) FLUCONAZOLE Al lergy (Severe, Uncoded 02/04/23 11:52) (units unknown) (unknown) (unknown) (no date) (unknown) (unknown) Family History (units unknown) (unknown) (unknown) (no date) (unknown) (unknown) Family Practic e Office Visit (units unknown) (unknown) (unknown) (no date) (unknown) (unknown) Father Murder (units unknown) (unknown) (unknown) (no date) (unknown) (unknown) [facility] (units unknown) (unknown) (unknown) (no date) (unknown) (unknown) Foot pain (units unknown) (unknown) (unknown) (no date) (unknown) (unknown) Fractures (units unknown) (unknown) (unknown) (no date) (unknown) (unknown) From [facility] All ergy (Severe, Uncoded 02/04/23 11:52) (units unknown) (unknown) (unknown) (no date) (unknown) (unknown) Gait: normal gait (u nits unknown) (unknown) (unknown) (no date) (unknown) (unknown) General: appea segundo normal, both eyes and all related structures (units unknown) (unknown) (unknown) (no date) (unknown) (unknown) General: coope rative and no acute distress (units unknown) (unknown) (unknown) (no date) (unknown) (unknown) General: no ra shes or lesions noted (units unknown) (unknown) (unknown) (no date) (unknown) (unknown) General: patie nt alert, patient awake and patient oriented x3 (units unknown) (unknown) (unknown) (no date) (unknown) (unknown) HENMT (units unknown) (unknown) (unknown) (no date) (unknown) (unknown) HPI (units unknown) (unknown) (unknown) (no date) (unknown) (unknown) HYDROCODONE Al lergy (Severe, Uncoded 02/04/23 11:52) (units unknown) (unknown) (unknown) (no date) (unknown) (unknown) Head: normal t o inspection (units unknown) (unknown) (unknown) (no date) (unknown) (unknown) Height 149.86 cm (un its unknown) (unknown) (unknown) (no date) (unknown) (unknown) Hemoglobin A1C % w Est Avg Glu 6 Months E11.40 - Type 2 diabetes mellitus with (units unknown) (unknown) (unknown) (no date) (unknown) (unknown) History of abdominoplasty (units unknown) (unknown) (unknown) (no date) (unknown) (unknown) History of casandra k surgery (-2018) (units unknown) (unknown) (unknown) (no date) (unknown) (unknown) History of car pal tunnel release (units unknown) (unknown) (unknown) (no date) (unknown) (unknown) History of tob acco use (units unknown) (unknown) (unknown) (no date) (unknown) (unknown) Hives (units unknown) (unknown) (unknown) (no date) (unknown) (unknown) Hypertension: Improved.? BP in clinic slightly elevated still but better than (units unknown) (unknown) (unknown) (no date) (unknown) (unknown) Hypertension: Inadequately controlled. Patient is overdue to follow-up with (units unknown) (unknown) (unknown) (no date) (unknown) (unknown) Hypothyroidism (-1998) (units unknown) (unknown) (unknown) (no date) (unknown) (unknown) Intake Note: (units unknown) (unknown) (unknown) (no date) (unknown) (unknown) Intake perform ed by: Quiana Camarillo (units unknown) (unknown) (unknown) (no date) (unknown) (unknown) Intake (units unknown) (unknown) (unknown) (no date) (unknown) (unknown) Intake- Magno al Staff (units unknown) (unknown) (unknown) (no date) (unknown) (unknown) Lab work other nina unremarkable. Outside of above, Next annual diabetes full (units unknown) (unknown) (unknown) (no date) (unknown) (unknown) Last Menstural Cycle + Details (units unknown) (unknown) (unknown) (no date) (unknown) (unknown) Left breast pa in: Repeat exam today in clinic did not reveal any concerning (units unknown) (unknown) (unknown) (no date) (unknown) (unknown) Loc: [facility] (units unknown) (unknown) (unknown) (no date) (unknown) (unknown) [place] (-1955) (uni ts unknown) (unknown) (unknown) (no date) (unknown) (unknown) Medical Histor y (units unknown) (unknown) (unknown) (no date) (unknown) (unknown) Medications (units unknown) (unknown) (unknown) (no date) (unknown) (unknown) Mental Status: mental status grossly normal (units unknown) (unknown) (unknown) (no date) (unknown) (unknown) Microalbumin C reat Ratio Urine 6 Months E11.40 - Type 2 diabetes mellitus with (units unknown) (unknown) (unknown) (no date) (unknown) (unknown) Microalbuminur ia:? Microalbumin/creatin ine ratio has improved, possibly due to (units unknown) (unknown) (unknown) (no date) (unknown) (unknown) Mood: congruent mood (units unknown) (unknown) (unknown) (no date) (unknown) (unknown) Mother d Brain tumor (units unknown) (unknown) (unknown) (no date) (unknown) (unknown) NITROFURANTOIN Allergy (Severe, Uncoded 02/04/23 11:52) (units unknown) (unknown) (unknown) (no date) (unknown) (unknown) Neuro (units unknown) (unknown) (unknown) (no date) (unknown) (unknown) Orders (units unknown) (unknown) (unknown) (no date) (unknown) (unknown) Orders: (units unknown) (unknown) (unknown) (no date) (unknown) (unknown) Osteoporosis (units unknown) (unknown) (unknown) (no date) (unknown) (unknown) Osteoporosis: Patient had DEXA scan done July 31, 2022 which showed (units unknown) (unknown) (unknown) (no date) (unknown) (unknown) Other Menstrua l Period: Postmenopausal (units unknown) (unknown) (unknown) (no date) (unknown) (unknown) Oxygen Deliver y Method room air (units unknown) (unknown) (unknown) (no date) (unknown) (unknown) PFSH (units unknown) (unknown) (unknown) (no date) (unknown) (unknown) POLLEN Allergy (Unknown, Uncoded 02/04/23 11:52) (units unknown) (unknown) (unknown) (no date) (unknown) (unknown) Parkinson's disease (units unknown) (unknown) (unknown) (no date) (unknown) (unknown) Patient contin ues to experience neuropathy symptoms but when I asked her if she (units unknown) (unknown) (unknown) (no date) (unknown) (unknown) Patient has be en checking her BP at home and levels have been 135 over 70s or (units unknown) (unknown) (unknown) (no date) (unknown) (unknown) Patient: Quiana Santiago M (units unknown) (unknown) (unknown) (no date) (unknown) (unknown) Plan (units unknown) (unknown) (unknown) (no date) (unknown) (unknown) Polio (-1943) (units unknown) (unknown) (unknown) (no date) (unknown) (unknown) Position Sitting (un its unknown) (unknown) (unknown) (no date) (unknown) (unknown) Psych (units unknown) (unknown) (unknown) (no date) (unknown) (unknown) Pulse 56 L (units unknown) (unknown) (unknown) (no date) (unknown) (unknown) Pulse Oximetry (%) 97 (units unknown) (unknown) (unknown) (no date) (unknown) (unknown) Pulse Source Monitor (units unknown) (unknown) (unknown) (no date) (unknown) (unknown) Qualified Code (s): E11.9 - Type 2 diabetes mellitus without complications (units unknown) (unknown) (unknown) (no date) (unknown) (unknown) Qualified Code (s): I25.10 - Atherosclerotic heart disease of [place] coronary (units unknown) (unknown) (unknown) (no date) (unknown) (unknown) Qualifiers: (units unknown) (unknown) (unknown) (no date) (unknown) (unknown) R#: [id number] (unit s unknown) (unknown) (unknown) (no date) (unknown) (unknown) RASH (units unknown) (unknown) (unknown) (no date) (unknown) (unknown) ROS (units unknown) (unknown) (unknown) (no date) (unknown) (unknown) Rate: regular rate ( units unknown) (unknown) (unknown) (no date) (unknown) (unknown) Reason For Visit (un its unknown) (unknown) (unknown) (no date) (unknown) (unknown) Rectal bleeding (uni ts unknown) (unknown) (unknown) (no date) (unknown) (unknown) Recurrent UTI (units unknown) (unknown) (unknown) (no date) (unknown) (unknown) Recurrent UTI: Patient continues to follow-up with Dr. Gamboa. She is frustrated (units unknown) (unknown) (unknown) (no date) (unknown) (unknown) Reflux, vesicoureteral (units unknown) (unknown) (unknown) (no date) (unknown) (unknown) Resp (units unknown) (unknown) (unknown) (no date) (unknown) (unknown) STOMACH CRAMPS , 'I CHOKE UP' (units unknown) (unknown) (unknown) (no date) (unknown) (unknown) STOMACH CRAMPS , 'I CRAMP UP' (units unknown) (unknown) (unknown) (no date) (unknown) (unknown) STOMACH CRAMPS, RASH (units unknown) (unknown) (unknown) (no date) (unknown) (unknown) SULFA Allergy (Severe, Uncoded 02/04/23 11:52) (units unknown) (unknown) (unknown) (no date) (unknown) (unknown) She had some o ther concerns which we did not have time to address today but she (units unknown) (unknown) (unknown) (no date) (unknown) (unknown) Signed By: (units unknown) (unknown) (unknown) (no date) (unknown) (unknown) Sister d Substance abuse (units unknown) (unknown) (unknown) (no date) (unknown) (unknown) Skin (units unknown) (unknown) (unknown) (no date) (unknown) (unknown) Smoking Status : Former smoker (units unknown) (unknown) (unknown) (no date) (unknown) (unknown) Speech: speech normal (units unknown) (unknown) (unknown) (no date) (unknown) (unknown) Status: Acute (units unknown) (unknown) (unknown) (no date) (unknown) (unknown) Surgical Histo ry (units unknown) (unknown) (unknown) (no date) (unknown) (unknown) THROAT SWELLIN G, HIVES, 'I CAN'T BREATHE' (units unknown) (unknown) (unknown) (no date) (unknown) (unknown) TSH with refle x free T4, lipids, CMP, hemoglobin A1c, microalbumin/creatin ine (units unknown) (unknown) (unknown) (no date) (unknown) (unknown) This note may have been all or partially generated using voice recognition (units unknown) (unknown) (unknown) (no date) (unknown) (unknown) Thought Conten t: normal (units unknown) (unknown) (unknown) (no date) (unknown) (unknown) Thought Proces s: normal (units unknown) (unknown) (unknown) (no date) (unknown) (unknown) Tobacco + Subs tance Use (units unknown) (unknown) (unknown) (no date) (unknown) (unknown) Tobacco Status (unit s unknown) (unknown) (unknown) (no date) (unknown) (unknown) Type 2 diabete s mellitus without complication (-1969) (units unknown) (unknown) (unknown) (no date) (unknown) (unknown) Type 2 diabete s, controlled, with neuropathy (units unknown) (unknown) (unknown) (no date) (unknown) (unknown) Unknown (units unknown) (unknown) (unknown) (no date) (unknown) (unknown) Urge incontinence (u nits unknown) (unknown) (unknown) (no date) (unknown) (unknown) Vaginal itching (uni ts unknown) (unknown) (unknown) (no date) (unknown) (unknown) Visit Reasons: f/u Diabetic check review medication (units unknown) (unknown) (unknown) (no date) (unknown) (unknown) Vitals (units unknown) (unknown) (unknown) (no date) (unknown) (unknown) [Rx Confirmed 02/04/23] (units unknown) (unknown) (unknown) (no date) (unknown) (unknown) about 4 months . Continue regimen. Recheck DEXA scan 1 year from previous. (units unknown) (unknown) (unknown) (no date) (unknown) (unknown) adjust regimen. (uni ts unknown) (unknown) (unknown) (no date) (unknown) (unknown) advised to get her hemoglobin A1c checked although this was sooner than planned; (units unknown) (unknown) (unknown) (no date) (unknown) (unknown) alendronate 70 mg tablet 70 mg PO QWEEK #12 tabs 07/22/22 [Rx Confirmed (units unknown) (unknown) (unknown) (no date) (unknown) (unknown) amoxicillin [F rom Augmentin] Adverse Reaction (Unknown, Verified 02/04/23 11:52) (units unknown) (unknown) (unknown) (no date) (unknown) (unknown) artery without angina pectoris (units unknown) (unknown) (unknown) (no date) (unknown) (unknown) aspirin 81 mg tablet,delayed release (Adult Aspirin Regimen) 81 mg PO DAILY (units unknown) (unknown) (unknown) (no date) (unknown) (unknown) atorvastatin 4 0 mg tablet 40 mg PO BEDTIME #90 tabs 12/20/22 [Rx Confirmed (units unknown) (unknown) (unknown) (no date) (unknown) (unknown) breast cancer and in addition is bothered by chronic pain which she states is in (units unknown) (unknown) (unknown) (no date) (unknown) (unknown) by lack of pro shweta and would like to see a different urologist, preferably a (units unknown) (unknown) (unknown) (no date) (unknown) (unknown) cardiology and I recommended she call to schedule a follow-up appointment. She (units unknown) (unknown) (unknown) (no date) (unknown) (unknown) cephalexin Adv erse Reaction (Unknown, Verified 02/04/23 11:52) (units unknown) (unknown) (unknown) (no date) (unknown) (unknown) clavulanic aci d [From Augmentin] Adverse Reaction (Unknown, Verified 02/04/23 (units unknown) (unknown) (unknown) (no date) (unknown) (unknown) clindamycin Ad verse Reaction (Unknown, Verified 02/04/23 11:52) (units unknown) (unknown) (unknown) (no date) (unknown) (unknown) clotrimazole 1 % topical cream 1 applic topical 02/04/23 [History Confirmed (units unknown) (unknown) (unknown) (no date) (unknown) (unknown) control, dyslipidemia.? (units unknown) (unknown) (unknown) (no date) (unknown) (unknown) denies side ef fects. She has a visit scheduled with cardiology in March. 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 Will refer to Dr. Arita. (units unknown) (unknown) (unknown) (no date) (unknown) (unknown) findings. Alth ough she has noted the color of the nipple seems to have changed, (units unknown) (unknown) (unknown) (no date) (unknown) (unknown) for further evaluation. (units unknown) (unknown) (unknown) (no date) (unknown) (unknown) for her cardio logy visit in March where payable manager may or may not wish to (units unknown) (unknown) (unknown) (no date) (unknown) (unknown) furosemide 20 mg tablet (Lasix) 20 mg PO BID PRN edema #180 tabs 12/20/22 [Rx (units unknown) (unknown) (unknown) (no date) (unknown) (unknown) have occurred. If there are any questions, please contact the Medical Records (units unknown) (unknown) (unknown) (no date) (unknown) (unknown) her with resul ts. Patient has resumed alendronate after being off of this for (units unknown) (unknown) (unknown) (no date) (unknown) (unknown) ibuprofen Adve rse Reaction (Intermediate, Verified 02/04/23 11:52) (units unknown) (unknown) (unknown) (no date) (unknown) (unknown) improved blood pressure.? Continue measures to optimize blood pressure, glycemic (units unknown) (unknown) (unknown) (no date) (unknown) (unknown) is happy to wa it until our follow-up visit and discuss at that time. (units unknown) (unknown) (unknown) (no date) (unknown) (unknown) it appeared no rmal to me today. Patient is very worried about possibility of (units unknown) (unknown) (unknown) (no date) (unknown) (unknown) levofloxacin [ From Levaquin] Allergy (Intermediate, Verified 02/04/23 11:52) (units unknown) (unknown) (unknown) (no date) (unknown) (unknown) levothyroxine 137 mcg tablet 137 mcg PO DAILY #90 tabs 12/20/22 [Rx Confirmed (units unknown) (unknown) (unknown) (no date) (unknown) (unknown) liothyronine 5 mcg tablet (Cytomel) 10 mcg PO DAILY #180 tabs 12/20/22 [Rx (units unknown) (unknown) (unknown) (no date) (unknown) (unknown) losartan 100 m g tablet 100 mg PO DAILY #90 tabs 12/20/22 [Rx Confirmed 02/04/23] (units unknown) (unknown) (unknown) (no date) (unknown) (unknown) may occur. Occasional wrong-word or 'sound-alike' substitutions may have (units unknown) (unknown) (unknown) (no date) (unknown) (unknown) measured were osteopenic only. AP spine not measured. We had already contacted (units unknown) (unknown) (unknown) (no date) (unknown) (unknown) metformin 1,00 0 mg tablet 1,000 mg PO BID #180 tabs 09/01/22 [Rx Confirmed (units unknown) (unknown) (unknown) (no date) (unknown) (unknown) metoprolol suc cinate 50 mg tablet,extended release 24 hr (Toprol XL) 50 mg PO (units unknown) (unknown) (unknown) (no date) (unknown) (unknown) nifedipine 30 mg tablet,extended release 24 hr 30 mg PO DAILY #90 tabs 12/16/22 (units unknown) (unknown) (unknown) (no date) (unknown) (unknown) occurred due t o the inherent limitations of voice recognition software. Please (units unknown) (unknown) (unknown) (no date) (unknown) (unknown) on 02-03-23 and was 7.4. (units unknown) (unknown) (unknown) (no date) (unknown) (unknown) osteoporosis l eft femoral neck with T-score of -2.7. Remainder of the areas (units unknown) (unknown) (unknown) (no date) (unknown) (unknown) pressure and medication adjustment. She was contacted by a staff member and (units unknown) (unknown) (unknown) (no date) (unknown) (unknown) previous.? We will continue current regimen for now and have her maintain plan (units unknown) (unknown) (unknown) (no date) (unknown) (unknown) ratio in 6 months. ( units unknown) (unknown) (unknown) (no date) (unknown) (unknown) ratio. Patient will schedule a visit for review of lab work, focused physical (units unknown) (unknown) (unknown) (no date) (unknown) (unknown) read the note carefully and recognize, using context, where these substitutions (units unknown) (unknown) (unknown) (no date) (unknown) (unknown) recently. She is doing senior workouts to help with her balance. (units unknown) (unknown) (unknown) (no date) (unknown) (unknown) set of lab wor k due in 1 year, fasting labs which will be: CBC with no diff, (units unknown) (unknown) (unknown) (no date) (unknown) (unknown) she did go ahe ad and get this checked. (units unknown) (unknown) (unknown) (no date) (unknown) (unknown) shortly after lab work is done. (units unknown) (unknown) (unknown) (no date) (unknown) (unknown) sitagliptin phosphate 100 mg tablet 100 mg PO DAILY #90 tabs 12/20/22 [Rx (units unknown) (unknown) (unknown) (no date) (unknown) (unknown) so. We added nifedipine ER to her regimen at the time of the last visit. She (units unknown) (unknown) (unknown) (no date) (unknown) (unknown) software. Alth ough every effort is made to edit content, concrete tester errors (units unknown) (unknown) (unknown) (no date) (unknown) (unknown) tetracycline A dverse Reaction (Unknown, Verified 02/04/23 11:52) (units unknown) (unknown) (unknown) (no date) (unknown) (unknown) the area that biopsy had been performed in [place]. We agreed to refer her (units unknown) (unknown) (unknown) (no date) (unknown) (unknown) to our general surgeon Dr. Jones who has a special interest in breast health (units unknown) (unknown) (unknown) (no date) (unknown) (unknown) vs. transplant ed heart: [place] heart Associated angina: without angina (units unknown) (unknown) (unknown) (no date) (unknown) (unknown) was just comme nting on this. Does not feel this has necessarily worsened (units unknown) (unknown) (unknown) (no date) (unknown) (unknown) will add nifed ipine ER. Follow-up with me in 4-6 weeks. (units unknown) (unknown) (unknown) (no date) (unknown) (unknown) will call us i f it turns out that she needs a new referral. 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: (units unknown) (unknown) (unknown) (no date) (unknown) (unknown) (2) Microalbuminuria: (units unknown) (unknown) (unknown) (no date) (unknown) (unknown) (3) Essential hypertension: (units unknown) (unknown) (unknown) (no date) (unknown) (unknown) (4) Coronary a rtery disease: (units unknown) (unknown) (unknown) (no date) (unknown) (unknown) 02/04/23 (units unknown) (unknown) (unknown) (no date) (unknown) (unknown) 02/04/23] (units unknown) (unknown) (unknown) (no date) (unknown) (unknown) 02/07/23 1005 (units unknown) (unknown) (unknown) (no date) (unknown) (unknown) 08/09/21 [Hist ory Confirmed 02/04/23] (units unknown) (unknown) (unknown) (no date) (unknown) (unknown) 11:52) (units unknown) (unknown) (unknown) (no date) (unknown) (unknown) 12:00 (units unknown) (unknown) (unknown) (no date) (unknown) (unknown) 82 Y/O Female presents today for a Diabetes follow up. Her last A1C was tested (units unknown) (unknown) (unknown) (no date) (unknown) (unknown) 82-year-old fe male presents for a visit which was planned to follow-up on blood (units unknown) (unknown) (unknown) (no date) (unknown) (unknown) Affect: normal affect (units unknown) (unknown) (unknown) (no date) (unknown) (unknown) Age/Sex: 82 / F Date of Service: (units unknown) (unknown) (unknown) (no date) (unknown) (unknown) All systems re viewed + are unremarkable except as noted in HPI and below (units unknown) (unknown) (unknown) (no date) (unknown) (unknown) Allergies (units unknown) (unknown) (unknown) (no date) (unknown) (unknown) Allergy to mul tiple antibiotics (units unknown) (unknown) (unknown) (no date) (unknown) (unknown) [place] [address] (units unknown) (unknown) (unknown) (no date) (unknown) (unknown) Anesthesia (units unknown) (unknown) (unknown) (no date) (unknown) (unknown) Appearance: gr ossly normal (units unknown) (unknown) (unknown) (no date) (unknown) (unknown) Assessment + Plan (u nits unknown) (unknown) (unknown) (no date) (unknown) (unknown) Attending Dr: Franklin MOSLEY (units unknown) (unknown) (unknown) (no date) (unknown) (unknown) Attitude: cooperative (units unknown) (unknown) (unknown) (no date) (unknown) (unknown) BP 140/70 (units unknown) (unknown) (unknown) (no date) (unknown) (unknown) Blood Pressure Location Lt brachial (units unknown) (unknown) (unknown) (no date) (unknown) (unknown) CODEINE Allerg y (Severe, Uncoded 02/04/23 11:52) (units unknown) (unknown) (unknown) (no date) (unknown) (unknown) Cardio (units unknown) (unknown) (unknown) (no date) (unknown) (unknown) Carpal tunnel syndrome (-1976) (units unknown) (unknown) (unknown) (no date) (unknown) (unknown) Chicken pox (-1949) (units unknown) (unknown) (unknown) (no date) (unknown) (unknown) Chief Complaint (uni ts unknown) (unknown) (unknown) (no date) (unknown) (unknown) Chief Complain t: Follow-up diabetes/chronic conditions/labs/medi cations (units unknown) (unknown) (unknown) (no date) (unknown) (unknown) Cognition: nor mal cognition (units unknown) (unknown) (unknown) (no date) (unknown) (unknown) Confirmed 02/04/23] (units unknown) (unknown) (unknown) (no date) (unknown) (unknown) Const (units unknown) (unknown) (unknown) (no date) (unknown) (unknown) Continue curre nt regimen.? Repeat hemoglobin A1c and microalbumin/creatin ine (units unknown) (unknown) (unknown) (no date) (unknown) (unknown) Coronary Disease-Associated Artery/Lesion type: [place] artery [place] (units unknown) (unknown) (unknown) (no date) (unknown) (unknown) Coronary arter y disease (units unknown) (unknown) (unknown) (no date) (unknown) (unknown) DAILY #90 tabs 01/20/22 [Rx Confirmed 02/04/23] (units unknown) (unknown) (unknown) (no date) (unknown) (unknown) : 0 Acct:[id number] (units unknown) (unknown) (unknown) (no date) (unknown) (unknown) Dept at . (units unknown) (unknown) (unknown) (no date) (unknown) (unknown) Details: (units unknown) (unknown) (unknown) (no date) (unknown) (unknown) Diabetes harry elva intermission coordinator insulin use: without intermission coordinator use (units unknown) (unknown) (unknown) (no date) (unknown) (unknown) Diabetes [facility] type 2: Hemoglobin A1c stable, 7.4%, appropriate for age.? (units unknown) (unknown) (unknown) (no date) (unknown) (unknown) Diabetic neuropathy (units unknown) (unknown) (unknown) (no date) (unknown) (unknown) Documented By: Franklin Rizzo 02/04/23 1150 (units unknown) (unknown) (unknown) (no date) (unknown) (unknown) Dupuytren's contracture (units unknown) (unknown) (unknown) (no date) (unknown) (unknown) Dyslipidemia (units unknown) (unknown) (unknown) (no date) (unknown) (unknown) Effort + Inspe ction: normal respiratory effort (units unknown) (unknown) (unknown) (no date) (unknown) (unknown) Essential hypertension (units unknown) (unknown) (unknown) (no date) (unknown) (unknown) Exam (units unknown) (unknown) (unknown) (no date) (unknown) (unknown) Eyes (units unknown) (unknown) (unknown) (no date) (unknown) (unknown) FLUCONAZOLE Al lergy (Severe, Uncoded 02/04/23 11:52) (units unknown) (unknown) (unknown) (no date) (unknown) (unknown) Family History (units unknown) (unknown) (unknown) (no date) (unknown) (unknown) Family Practic e Office Visit (units unknown) (unknown) (unknown) (no date) (unknown) (unknown) Father Murder (units unknown) (unknown) (unknown) (no date) (unknown) (unknown) [facility] (units unknown) (unknown) (unknown) (no date) (unknown) (unknown) Foot pain (units unknown) (unknown) (unknown) (no date) (unknown) (unknown) Fractures (units unknown) (unknown) (unknown) (no date) (unknown) (unknown) From [facility] All ergy (Severe, Uncoded 02/04/23 11:52) (units unknown) (unknown) (unknown) (no date) (unknown) (unknown) Gait: normal gait (u nits unknown) (unknown) (unknown) (no date) (unknown) (unknown) General: appea segundo normal, both eyes and all related structures (units unknown) (unknown) (unknown) (no date) (unknown) (unknown) General: coope rative and no acute distress (units unknown) (unknown) (unknown) (no date) (unknown) (unknown) General: no ra shes or lesions noted (units unknown) (unknown) (unknown) (no date) (unknown) (unknown) General: patie nt alert, patient awake and patient oriented x3 (units unknown) (unknown) (unknown) (no date) (unknown) (unknown) HENMT (units unknown) (unknown) (unknown) (no date) (unknown) (unknown) HPI (units unknown) (unknown) (unknown) (no date) (unknown) (unknown) HYDROCODONE Al lergy (Severe, Uncoded 02/04/23 11:52) (units unknown) (unknown) (unknown) (no date) (unknown) (unknown) Head: normal t o inspection (units unknown) (unknown) (unknown) (no date) (unknown) (unknown) Height 149.86 cm (un its unknown) (unknown) (unknown) (no date) (unknown) (unknown) Hemoglobin A1C % w Est Avg Glu 6 Months E11.40 - Type 2 diabetes mellitus with (units unknown) (unknown) (unknown) (no date) (unknown) (unknown) History of abdominoplasty (units unknown) (unknown) (unknown) (no date) (unknown) (unknown) History of casandra k surgery (-2018) (units unknown) (unknown) (unknown) (no date) (unknown) (unknown) History of car pal tunnel release (units unknown) (unknown) (unknown) (no date) (unknown) (unknown) History of tob acco use (units unknown) (unknown) (unknown) (no date) (unknown) (unknown) Hives (units unknown) (unknown) (unknown) (no date) (unknown) (unknown) Hypertension: Improved.? BP in clinic slightly elevated still but better than (units unknown) (unknown) (unknown) (no date) (unknown) (unknown) Hypothyroidism (-1998) (units unknown) (unknown) (unknown) (no date) (unknown) (unknown) Intake Note: (units unknown) (unknown) (unknown) (no date) (unknown) (unknown) Intake perform ed by: Quiana Camarillo (units unknown) (unknown) (unknown) (no date) (unknown) (unknown) Intake (units unknown) (unknown) (unknown) (no date) (unknown) (unknown) Intake- Magno al Staff (units unknown) (unknown) (unknown) (no date) (unknown) (unknown) Last Menstural Cycle + Details (units unknown) (unknown) (unknown) (no date) (unknown) (unknown) Loc: [facility] (units unknown) (unknown) (unknown) (no date) (unknown) (unknown) Measles (-1955) (uni ts unknown) (unknown) (unknown) (no date) (unknown) (unknown) Medical Histor y (units unknown) (unknown) (unknown) (no date) (unknown) (unknown) Medications (units unknown) (unknown) (unknown) (no date) (unknown) (unknown) Medications: (units unknown) (unknown) (unknown) (no date) (unknown) (unknown) Mental Status: mental status grossly normal (units unknown) (unknown) (unknown) (no date) (unknown) (unknown) Microalbumin C reat Ratio Urine 6 Months E11.40 - Type 2 diabetes mellitus with (units unknown) (unknown) (unknown) (no date) (unknown) (unknown) Microalbuminur ia:? Microalbumin/creatin ine ratio has improved, possibly due to (units unknown) (unknown) (unknown) (no date) (unknown) (unknown) Mood: congruent mood (units unknown) (unknown) (unknown) (no date) (unknown) (unknown) Mother d Brain tumor (units unknown) (unknown) (unknown) (no date) (unknown) (unknown) NITROFURANTOIN Allergy (Severe, Uncoded 02/04/23 11:52) (units unknown) (unknown) (unknown) (no date) (unknown) (unknown) Neuro (units unknown) (unknown) (unknown) (no date) (unknown) (unknown) Orders (units unknown) (unknown) (unknown) (no date) (unknown) (unknown) Orders: (units unknown) (unknown) (unknown) (no date) (unknown) (unknown) Osteoporosis (units unknown) (unknown) (unknown) (no date) (unknown) (unknown) Other Menstrua l Period: Postmenopausal (units unknown) (unknown) (unknown) (no date) (unknown) (unknown) Oxygen Deliver y Method room air (units unknown) (unknown) (unknown) (no date) (unknown) (unknown) PFSH (units unknown) (unknown) (unknown) (no date) (unknown) (unknown) POLLEN Allergy (Unknown, Uncoded 02/04/23 11:52) (units unknown) (unknown) (unknown) (no date) (unknown) (unknown) Parkinson's disease (units unknown) (unknown) (unknown) (no date) (unknown) (unknown) Patient contin ues to experience neuropathy symptoms but when I asked her if she (units unknown) (unknown) (unknown) (no date) (unknown) (unknown) Patient has be en checking her BP at home and levels have been 135 over 70s or (units unknown) (unknown) (unknown) (no date) (unknown) (unknown) Patient: Quiana Santiago (units unknown) (unknown) (unknown) (no date) (unknown) (unknown) Plan (units unknown) (unknown) (unknown) (no date) (unknown) (unknown) Polio (-1943) (units unknown) (unknown) (unknown) (no date) (unknown) (unknown) Position Sitting (un its unknown) (unknown) (unknown) (no date) (unknown) (unknown) Psych (units unknown) (unknown) (unknown) (no date) (unknown) (unknown) Pulse 56 L (units unknown) (unknown) (unknown) (no date) (unknown) (unknown) Pulse Oximetry (%) 97 (units unknown) (unknown) (unknown) (no date) (unknown) (unknown) Pulse Source Monitor (units unknown) (unknown) (unknown) (no date) (unknown) (unknown) Qualified Code (s): E11.9 - Type 2 diabetes mellitus without complications (units unknown) (unknown) (unknown) (no date) (unknown) (unknown) Qualified Code (s): I25.10 - Atherosclerotic heart disease of [place] coronary (units unknown) (unknown) (unknown) (no date) (unknown) (unknown) Qualifiers: (units unknown) (unknown) (unknown) (no date) (unknown) (unknown) R#: [id number] (unit s unknown) (unknown) (unknown) (no date) (unknown) (unknown) RASH (units unknown) (unknown) (unknown) (no date) (unknown) (unknown) ROS (units unknown) (unknown) (unknown) (no date) (unknown) (unknown) Rate: regular rate ( units unknown) (unknown) (unknown) (no date) (unknown) (unknown) Reason For Visit (un its unknown) (unknown) (unknown) (no date) (unknown) (unknown) Rectal bleeding (uni ts unknown) (unknown) (unknown) (no date) (unknown) (unknown) Recurrent UTI (units unknown) (unknown) (unknown) (no date) (unknown) (unknown) Refilled (units unknown) (unknown) (unknown) (no date) (unknown) (unknown) Reflux, vesicoureteral (units unknown) (unknown) (unknown) (no date) (unknown) (unknown) Resp (units unknown) (unknown) (unknown) (no date) (unknown) (unknown) STOMACH CRAMPS , 'I CHOKE UP' (units unknown) (unknown) (unknown) (no date) (unknown) (unknown) STOMACH CRAMPS , 'I CRAMP UP' (units unknown) (unknown) (unknown) (no date) (unknown) (unknown) STOMACH CRAMPS, RASH (units unknown) (unknown) (unknown) (no date) (unknown) (unknown) SULFA Allergy (Severe, Uncoded 02/04/23 11:52) (units unknown) (unknown) (unknown) (no date) (unknown) (unknown) Signed By: <Electronically signed by Franklin Rizzo> (units unknown) (unknown) (unknown) (no date) (unknown) (unknown) Signed (units unknown) (unknown) (unknown) (no date) (unknown) (unknown) Sister d Substance abuse (units unknown) (unknown) (unknown) (no date) (unknown) (unknown) Skin (units unknown) (unknown) (unknown) (no date) (unknown) (unknown) Smoking Status : Former smoker (units unknown) (unknown) (unknown) (no date) (unknown) (unknown) Speech: speech normal (units unknown) (unknown) (unknown) (no date) (unknown) (unknown) Status: Acute (units unknown) (unknown) (unknown) (no date) (unknown) (unknown) Surgical Histo ry (units unknown) (unknown) (unknown) (no date) (unknown) (unknown) THROAT SWELLIN G, HIVES, 'I CAN'T BREATHE' (units unknown) (unknown) (unknown) (no date) (unknown) (unknown) This note may have been all or partially generated using voice recognition (units unknown) (unknown) (unknown) (no date) (unknown) (unknown) Thought Conten t: normal (units unknown) (unknown) (unknown) (no date) (unknown) (unknown) Thought Proces s: normal (units unknown) (unknown) (unknown) (no date) (unknown) (unknown) Tobacco + Subs tance Use (units unknown) (unknown) (unknown) (no date) (unknown) (unknown) Tobacco Status (unit s unknown) (unknown) (unknown) (no date) (unknown) (unknown) Type 2 diabete s mellitus without complication (-1970) (units unknown) (unknown) (unknown) (no date) (unknown) (unknown) Type 2 diabete s, controlled, with neuropathy (units unknown) (unknown) (unknown) (no date) (unknown) (unknown) Unknown (units unknown) (unknown) (unknown) (no date) (unknown) (unknown) Urge incontinence (u nits unknown) (unknown) (unknown) (no date) (unknown) (unknown) Vaginal itching (uni ts unknown) (unknown) (unknown) (no date) (unknown) (unknown) Visit Reasons: f/u Diabetic check review medication (units unknown) (unknown) (unknown) (no date) (unknown) (unknown) Vitals (units unknown) (unknown) (unknown) (no date) (unknown) (unknown) [Rx Confirmed 02/07/23] (units unknown) (unknown) (unknown) (no date) (unknown) (unknown) adjust regimen. (uni ts unknown) (unknown) (unknown) (no date) (unknown) (unknown) advised to get her hemoglobin A1c checked although this was sooner than planned; (units unknown) (unknown) (unknown) (no date) (unknown) (unknown) alendronate 70 mg tablet 70 mg PO QWEEK #12 tabs 07/22/22 [Rx Confirmed (units unknown) (unknown) (unknown) (no date) (unknown) (unknown) amoxicillin [F rom Augmentin] Adverse Reaction (Unknown, Verified 02/04/23 11:52) (units unknown) (unknown) (unknown) (no date) (unknown) (unknown) artery without angina pectoris (units unknown) (unknown) (unknown) (no date) (unknown) (unknown) aspirin 81 mg tablet,delayed release (Adult Aspirin Regimen) 81 mg PO DAILY (units unknown) (unknown) (unknown) (no date) (unknown) (unknown) atorvastatin 4 0 mg tablet 40 mg PO BEDTIME #90 tabs 12/20/22 [Rx Confirmed (units unknown) (unknown) (unknown) (no date) (unknown) (unknown) cephalexin Adv erse Reaction (Unknown, Verified 02/04/23 11:52) (units unknown) (unknown) (unknown) (no date) (unknown) (unknown) clavulanic aci d [From Augmentin] Adverse Reaction (Unknown, Verified 02/04/23 (units unknown) (unknown) (unknown) (no date) (unknown) (unknown) clindamycin Ad verse Reaction (Unknown, Verified 02/04/23 11:52) (units unknown) (unknown) (unknown) (no date) (unknown) (unknown) clotrimazole 1 % topical cream 1 applic topical 02/04/23 [History Confirmed (units unknown) (unknown) (unknown) (no date) (unknown) (unknown) control, dyslipidemia.? (units unknown) (unknown) (unknown) (no date) (unknown) (unknown) denies side ef fects. She has a visit scheduled with cardiology in March. (units unknown) (unknown) (unknown) (no date) (unknown) (unknown) diabetic neuro kusum, unspecified, R80.9 - Proteinuria, unspecified (units unknown) (unknown) (unknown) (no date) (unknown) (unknown) for her cardio logy visit in March where payable manager may or may not wish to (units unknown) (unknown) (unknown) (no date) (unknown) (unknown) furosemide 20 mg tablet (Lasix) 20 mg PO BID PRN edema #180 tabs 12/20/22 [Rx (units unknown) (unknown) (unknown) (no date) (unknown) (unknown) have occurred. If there are any questions, please contact the Medical Records (units unknown) (unknown) (unknown) (no date) (unknown) (unknown) ibuprofen Adve rse Reaction (Intermediate, Verified 02/04/23 11:52) (units unknown) (unknown) (unknown) (no date) (unknown) (unknown) improved blood pressure.? Continue measures to optimize blood pressure, glycemic (units unknown) (unknown) (unknown) (no date) (unknown) (unknown) levofloxacin [ From Levaquin] Allergy (Intermediate, Verified 02/04/23 11:52) (units unknown) (unknown) (unknown) (no date) (unknown) (unknown) levothyroxine 137 mcg tablet 137 mcg PO DAILY #90 tabs 12/20/22 [Rx Confirmed (units unknown) (unknown) (unknown) (no date) (unknown) (unknown) liothyronine 5 mcg tablet (Cytomel) 10 mcg PO DAILY #180 tabs 12/20/22 [Rx (units unknown) (unknown) (unknown) (no date) (unknown) (unknown) losartan 100 m g tablet 100 mg PO DAILY #90 tabs 12/20/22 [Rx Confirmed 02/04/23] (units unknown) (unknown) (unknown) (no date) (unknown) (unknown) may occur. Occasional wrong-word or 'sound-alike' substitutions may have (units unknown) (unknown) (unknown) (no date) (unknown) (unknown) metformin 1,00 0 mg tablet 1,000 mg PO BID #180 tabs 09/01/22 [Rx Confirmed (units unknown) (unknown) (unknown) (no date) (unknown) (unknown) metoprolol suc cinate 50 mg tablet,extended release 24 hr (Toprol XL) 50 mg PO (units unknown) (unknown) (unknown) (no date) (unknown) (unknown) nifedipine 30 mg tablet,extended release 24 hr 30 mg PO DAILY #90 tabs 02/07/23 (units unknown) (unknown) (unknown) (no date) (unknown) (unknown) nifedipine ER 30 mg PO DAILY 90 tabs 3RF (units unknown) (unknown) (unknown) (no date) (unknown) (unknown) occurred due t o the inherent limitations of voice recognition software. Please (units unknown) (unknown) (unknown) (no date) (unknown) (unknown) on 02-03-23 and was 7.4. (units unknown) (unknown) (unknown) (no date) (unknown) (unknown) pressure and medication adjustment. She was contacted by a staff member and (units unknown) (unknown) (unknown) (no date) (unknown) (unknown) previous.? We will continue current regimen for now and have her maintain plan (units unknown) (unknown) (unknown) (no date) (unknown) (unknown) ratio in 6 thu followed by a visit. (units unknown) (unknown) (unknown) (no date) (unknown) (unknown) read the note carefully and recognize, using context, where these substitutions (units unknown) (unknown) (unknown) (no date) (unknown) (unknown) recently. She is doing senior workouts to help with her balance. (units unknown) (unknown) (unknown) (no date) (unknown) (unknown) she did go ahe ad and get this checked. (units unknown) (unknown) (unknown) (no date) (unknown) (unknown) sitagliptin phosphate 100 mg tablet 100 mg PO DAILY #90 tabs 12/20/22 [Rx (units unknown) (unknown) (unknown) (no date) (unknown) (unknown) so. We added nifedipine ER to her regimen at the time of the last visit. She (units unknown) (unknown) (unknown) (no date) (unknown) (unknown) software. Alth ough every effort is made to edit content, concrete tester errors (units unknown) (unknown) (unknown) (no date) (unknown) (unknown) tetracycline A dverse Reaction (Unknown, Verified 02/04/23 11:52) (units unknown) (unknown) (unknown) (no date) (unknown) (unknown) vs. transplant ed heart: [facility] [place] heart Associated angina: without angina (units unknown) (unknown) (unknown) (no date) (unknown) (unknown) was just comme nting on this. Does not feel this has necessarily worsened (units unknown) (unknown) (unknown) (no date) (unknown) (unknown) would like to re-evaluate or take any new action she declined, indicating she (units unknown) (unknown) Result panel 16 (unknown) (no date) (unknown) (unknown) (no value) (units unknown) (unknown) (unknown) (no date) (unknown) (unknown) +---------+ 29 9-1300 +--------- (units unknown) (unknown) (unknown) (no date) (unknown) (unknown) +---------+ Ho spital +--------- (units unknown) (unknown) (unknown) (no date) (unknown) (unknown) + ------ (units unknown) (unknown) (unknown) (no date) (unknown) (unknown) 04/01/23 (units unknown) (unknown) (unknown) (no date) (unknown) (unknown) [address] (un its unknown) (unknown) (unknown) (no date) (unknown) (unknown) : : [address] [facility] : : (units unknown) (unknown) (unknown) (no date) (unknown) (unknown) : : [id number] : : (units unknown) (unknown) (unknown) (no date) (unknown) (unknown) : : [place], [place] : : (units unknown) (unknown) (unknown) (no date) (unknown) (unknown) : : Phone: [phone] : : (units unknown) (unknown) (unknown) (no date) (unknown) (unknown) : Gender: Female BSA: 1.5 m2 : (units unknown) (unknown) (unknown) (no date) (unknown) (unknown) :: [birth year] Age: 82 yrs BP: 124/65 mmHg: (units unknown) (unknown) (unknown) (no date) (unknown) (unknown) :[facility] ReadingLocation: Weight: 124 lb : (units unknown) (unknown) (unknown) (no date) (unknown) (unknown) :Name: QUIANA MUNOZ Study Date: 04/01/2023 Height: 59 in : (units unknown) (unknown) (unknown) (no date) (unknown) (unknown) :[place] Perform ed By: Esha Puckett : (units unknown) (unknown) (unknown) (no date) (unknown) (unknown) :Ordering Phys ician: QUINN, : (units unknown) (unknown) (unknown) (no date) (unknown) (unknown) :Reason For St udy: HYPERTENSION : (units unknown) (unknown) (unknown) (no date) (unknown) (unknown) :Referring: CALDERON STEPHENSON : (units unknown) (unknown) (unknown) (no date) (unknown) (unknown) sev ratio: 0.71 ( units unknown) (unknown) (unknown) (no date) (unknown) (unknown) TAWANNA indexed to BSA (cm2/m2): 1.5 (units unknown) (unknown) (unknown) (no date) (unknown) (unknown) Accession Numb er: [id number] (units unknown) (unknown) (unknown) (no date) (unknown) (unknown) Age/Sex: 82 / F Date of Service: (units unknown) (unknown) (unknown) (no date) (unknown) (unknown) Keivn, ENEIDA [id number] (units unknown) (unknown) (unknown) (no date) (unknown) (unknown) Ao V2 VTI: 37. 2 cm TAWANNA(V,D): 2.1 cm2 (units unknown) (unknown) (unknown) (no date) (unknown) (unknown) Ao V2 max: 175 .8 cm/sec LVOT Max Marquise: 111.7 cm/sec (units unknown) (unknown) (unknown) (no date) (unknown) (unknown) Ao V2 mean: 11 9.1 cm/sec LV V1 max P.0 mmHg (units unknown) (unknown) (unknown) (no date) (unknown) (unknown) Ao max P. 4 mmHg LV V1 VTI: 26.4 cm (units unknown) (unknown) (unknown) (no date) (unknown) (unknown) Ao mean P. 5 mmHg TAWANNA(I,D): 2.3 cm2 (units unknown) (unknown) (unknown) (no date) (unknown) (unknown) Aortic Valve: The aortic valve is trileaflet. The aortic valve opens well. (units unknown) (unknown) (unknown) (no date) (unknown) (unknown) Atria: The lef t atrial size is normal. The right atrium is normal in size. (units unknown) (unknown) (unknown) (no date) (unknown) (unknown) Comparison is made with the echocardiogram of 04/27/2017. The patient was in (units unknown) (unknown) (unknown) (no date) (unknown) (unknown) : 0 Acct:[id number] (units unknown) (unknown) (unknown) (no date) (unknown) (unknown) Diastolic para meters suggest a relaxation abnormality of the left ventricle, (units unknown) (unknown) (unknown) (no date) (unknown) (unknown) Doppler Measur ements + Calculations (units unknown) (unknown) (unknown) (no date) (unknown) (unknown) E/E' lat: 12.1 (unit s unknown) (unknown) (unknown) (no date) (unknown) (unknown) E/E' med: 18.8 PA mean P.0 mmHg (units unknown) (unknown) (unknown) (no date) (unknown) (unknown) E/e' average: 15.5 ( units unknown) (unknown) (unknown) (no date) (unknown) (unknown) EPSS: 1.3 cm A o Arch Diam (Prox Trans): 2.2 cm (units unknown) (unknown) (unknown) (no date) (unknown) (unknown) Echocardiogram Report (units unknown) (unknown) (unknown) (no date) (unknown) (unknown) Echocardiograp hy Report (units unknown) (unknown) (unknown) (no date) (unknown) (unknown) (units unknown) (unknown) (unknown) (no date) (unknown) (unknown) FS: 28.6 % asc Aorta Diam: 3.4 cm (units unknown) (unknown) (unknown) (no date) (unknown) (unknown) Great Vessels: The aortic root is normal size. The dimensions of the (units unknown) (unknown) (unknown) (no date) (unknown) (unknown) IVSd: 0.91 cm (units unknown) (unknown) (unknown) (no date) (unknown) (unknown) Interpretation Summary (units unknown) (unknown) (unknown) (no date) (unknown) (unknown) [facility] (uni ts unknown) (unknown) (unknown) (no date) (unknown) (unknown) [place] (units unknown) (unknown) (unknown) (no date) (unknown) (unknown) LA A2 area: 18 .3 cm2 RA long axis: 4.5 cm (units unknown) (unknown) (unknown) (no date) (unknown) (unknown) LA A4 area: 14 .3 cm2 RA area: 12.5 cm2 (units unknown) (unknown) (unknown) (no date) (unknown) (unknown) LA length (vol ): 4.7 cm RA vol: 29.2 ml (units unknown) (unknown) (unknown) (no date) (unknown) (unknown) LA vol index: 31.7 ml/m2 IVC diam: 0.98 cm (units unknown) (unknown) (unknown) (no date) (unknown) (unknown) LA vol: 47.6 m l RA : 19.4 ml/m2 (units unknown) (unknown) (unknown) (no date) (unknown) (unknown) LV coleman. diameter/BSA (cm/m2): 2.3 (units unknown) (unknown) (unknown) (no date) (unknown) (unknown) LV sys. diamet er/BSA (cm/m2): 1.7 (units unknown) (unknown) (unknown) (no date) (unknown) (unknown) LVIDd: 3.5 cm LVOT diam: 2.0 cm (units unknown) (unknown) (unknown) (no date) (unknown) (unknown) LVIDs: 2.5 cm Ao root diam: 3.1 cm (units unknown) (unknown) (unknown) (no date) (unknown) (unknown) LVPWd: 0.93 cm (unit s unknown) (unknown) (unknown) (no date) (unknown) (unknown) Lat Peak E' Ve l: 7.5 cm/sec PA pr(Accel): 32.8 mmHg (units unknown) (unknown) (unknown) (no date) (unknown) (unknown) Left Ventricle : The left ventricle is normal in size and wall thickness. The (units unknown) (unknown) (unknown) (no date) (unknown) (unknown) Loc: ECHO (units unknown) (unknown) (unknown) (no date) (unknown) (unknown) MMode/2D Measurements + Calculations (units unknown) (unknown) (unknown) (no date) (unknown) (unknown) MR#: [id number] (uni ts unknown) (unknown) (unknown) (no date) (unknown) (unknown) MV A max marquise: 98.8 cm/sec TR max P.7 mmHg (units unknown) (unknown) (unknown) (no date) (unknown) (unknown) MV E max marquise: 91.2 cm/sec TR max marquise: 258.3 cm/sec (units unknown) (unknown) (unknown) (no date) (unknown) (unknown) MV E/A: 0.92 P A V2 max: 98.5 cm/sec (units unknown) (unknown) (unknown) (no date) (unknown) (unknown) MV dec time: 0 .32 sec (units unknown) (unknown) (unknown) (no date) (unknown) (unknown) Med Peak E' Ve l: 4.8 cm/sec PA V2 mean: 65.4 cm/sec (units unknown) (unknown) (unknown) (no date) (unknown) (unknown) Mitral Valve: The mitral valve is normal in structure and function. There is (units unknown) (unknown) (unknown) (no date) (unknown) (unknown) Ordering Provi oswaldo: Calderon Betancourt MD (units unknown) (unknown) (unknown) (no date) (unknown) (unknown) Patient: Quiana Santiago (units unknown) (unknown) (unknown) (no date) (unknown) (unknown) Pericardium/ P leura There is no pericardial effusion. There is no pleural (units unknown) (unknown) (unknown) (no date) (unknown) (unknown) Procedure: A two-dimensional transthoracic echocardiogram with color flow (units unknown) (unknown) (unknown) (no date) (unknown) (unknown) Procedure: EC echo doppler complete (units unknown) (unknown) (unknown) (no date) (unknown) (unknown) Pulmonic Valve : The pulmonic valve leaflets are thin and pliable; valve (units unknown) (unknown) (unknown) (no date) (unknown) (unknown) RVD1 (basal): 3.7 cm (units unknown) (unknown) (unknown) (no date) (unknown) (unknown) RVD2 (mid): 3.3 cm ( units unknown) (unknown) (unknown) (no date) (unknown) (unknown) Reading Physician:12:58 PM (units unknown) (unknown) (unknown) (no date) (unknown) (unknown) Right Ventricl e: The right ventricle is normal in size and function. (units unknown) (unknown) (unknown) (no date) (unknown) (unknown) SV(LVOT): 86.2 ml (u nits unknown) (unknown) (unknown) (no date) (unknown) (unknown) Signed (units unknown) (unknown) (unknown) (no date) (unknown) (unknown) TAPSE: 1.7 cm (units unknown) (unknown) (unknown) (no date) (unknown) (unknown) The aortic franky t is normal size. (units unknown) (unknown) (unknown) (no date) (unknown) (unknown) The left atria l size is normal. The right atrium is normal in size. (units unknown) (unknown) (unknown) (no date) (unknown) (unknown) The left ventr icle is normal in size and wall thickness. The ejection fraction (units unknown) (unknown) (unknown) (no date) (unknown) (unknown) The right vent ricle is normal in size and function. The right ventricular (units unknown) (unknown) (unknown) (no date) (unknown) (unknown) There is mild tricuspid regurgitation. The right ventricular systolic pressure (units unknown) (unknown) (unknown) (no date) (unknown) (unknown) There is no Do ppler evidence for an interatrial shunt. (units unknown) (unknown) (unknown) (no date) (unknown) (unknown) There is no ao rtic valve stenosis. No aortic regurgitation is present. (units unknown) (unknown) (unknown) (no date) (unknown) (unknown) There is no significant valvular heart disease. (units unknown) (unknown) (unknown) (no date) (unknown) (unknown) Tricuspid Valv e: The tricuspid valve is normal in structure and function. (units unknown) (unknown) (unknown) (no date) (unknown) (unknown) (units unknown) (unknown) (unknown) (no date) (unknown) (unknown) abnormalities. Diastolic parameters suggest a relaxation abnormality of the (units unknown) (unknown) (unknown) (no date) (unknown) (unknown) and Doppler wa s performed. The study quality was technically adequate. (units unknown) (unknown) (unknown) (no date) (unknown) (unknown) ascending aort a are normal. The IVC is of normal diameter and collapses (units unknown) (unknown) (unknown) (no date) (unknown) (unknown) consistent wit h probable normal filling pressures. (units unknown) (unknown) (unknown) (no date) (unknown) (unknown) effusion. (units unknown) (unknown) (unknown) (no date) (unknown) (unknown) ejection fract ion is estimated to be 60-65%. There are no focal wall motion (units unknown) (unknown) (unknown) (no date) (unknown) (unknown) greater than 5 0% with a sniff. This suggests a low right atrial pressure of 3 (units unknown) (unknown) (unknown) (no date) (unknown) (unknown) is estimated t o be 60-65%. There are no focal wall motion abnormalities. (units unknown) (unknown) (unknown) (no date) (unknown) (unknown) is estimated t o be at least 30 mmHg based on an estimated right atrial (units unknown) (unknown) (unknown) (no date) (unknown) (unknown) left ventricle , consistent with probable normal filling pressures. (units unknown) (unknown) (unknown) (no date) (unknown) (unknown) mild mitral regurgitation. (units unknown) (unknown) (unknown) (no date) (unknown) (unknown) mm Hg. (units unknown) (unknown) (unknown) (no date) (unknown) (unknown) motion is norm al. There is trace pulmonic regurgitation. There is no (units unknown) (unknown) (unknown) (no date) (unknown) (unknown) pressure of 3 mm Hg. (units unknown) (unknown) (unknown) (no date) (unknown) (unknown) right atrial pressure of 3 mm Hg. (units unknown) (unknown) (unknown) (no date) (unknown) (unknown) significant va lvular heart disease. (units unknown) (unknown) (unknown) (no date) (unknown) (unknown) sinus rhythm w ith heart rates between 60-81 bpm during the exam. (units unknown) (unknown) (unknown) (no date) (unknown) (unknown) systolic press ure is estimated to be at least 30 mmHg based on an estimated (units unknown) (unknown) Social History date description facility 2023-02-04 00:00 Ex-smoker (finding) [facility] Vital Signs date measurement value units 2023-02-04 00:00 BP_diastolic 70 mmHg 2023-02-04 00:00 BP_systolic 140 mmHg 2023-02-04 00:00 heart_rate 56 /min 2023-02-04 00:00 height_metric 149.86 cm 2023-02-04 00:00 height_standard 59 in 2023-02-04 00:00 o2_saturation 97 %
== END 2023-04-08 14:40 | disposition left against medical advice (07) ==
LOC: ED 13:41
DX: R42 Dizziness and giddiness (principal); R11.2 Nausea with vomiting, unspecified
CPT/HCPCS: 80053; 83690; 84443; 85025; 99281; 99283

== ENCOUNTER 2023-12-02 08:07 | Outpatient (CLI) | payer MEDICARE, BC | END 2023-12-02 08:08 | disposition home or self-care (01) | LOC: LAB 08:07 | PROVIDERS: ATTEND Urology | DX: N32.81 Overactive bladder (principal); R39.9 Unspecified symptoms and signs involving the genitourinary system | CPT/HCPCS: 87077; 87086; 87181 ==